=== PATIENT | male | born 1960 | race Caucasian/White ===

== ENCOUNTER 2017-03-18 19:57 | Inpatient (IN) | payer OTHER ==
[2017-03-18 20:23] VITALS: BMI 25.7
--- NOTE | 2017-03-18 20:48 | HP ---
COWS - Scale Resting Pulse: 1= [place] 81-100 Sweatin= Chills/Flushing Restless Observation: 1= Difficult to Sit Still Pupil Size: 1= Pupils >than Normal Bone or Joint Aches: 4=Acute Joint/Muscle Pain Runny Nose/ Eye Tearin= Runny Nose/Eyes GI Upset > 30mins: 1= Stomach Cramp Tremor Observation: 2= Slight Tremor Visible Yawning Observation: 2= >3x During Session Anxiety or Irritability: 1=Feels Anxious/Irritable Goose Flesh Skin: 0=Smooth Skin COWS Score: 16 Admission ROS S - HPI Chief Complaint: C/O WITHDRAWAL SX'S. SEEKING DETOX FOR OPIATE DEPENDENCE. Allergies/Adverse Reactions: Allergies Allergy/AdvReac Type Severity Reaction Status Date / Time No Known Allergies Allergy Verified 08/31/16 15:44 History of Present Illness: 56 Y.O. MALE WITH H/O OPIOID DEPENDENCE ADMITTED TO DETOX. CLIENT IS KNOWN TO [facility]. REPORTS LAST DETOX 3 MONTHS AGO. STATES LONGEST CLEAN TIME 2 YEARS. SELF REFERRED. CLIENT NOTED WITH ABCESS TO R FOREARM WITH SLIGHT NECROSIS AND REDNESS COOL TO TOUCH. STATES WAS SEEN IN [facility] TODAY AND STARTED ON PO ABT [place] BUT DOES NOT HAVE HIS DC PAPERS. PT HAS THIS WOUND LAST ADMISSION. STATES WAS TREATED AND RESOLVED BUT HAS NOW REOCCURRED DUE TO USING SITE FOR IVDA. THIS EPISODE IS NOW 2 WEEKS. HE IS AFREBILE AND H/O DM. WILL START KEFLEX AND CONT TO MONITOR. D/W CLIENT NEED TO F/U UPON DC Exam Limitations: No Limitations - Ebola screening Have you traveled outside of the country in the last 21 days: No (N) Have you had contact with anyone from an Ebola affected area: No Have you been sick,other than usual withdrawal symptoms: No Do you have a fever: No - Review of Systems Constitutional: Chills, Loss of Appetite, Malaise, Night Sweats EENT: reports: Tearing, Nose Congestion, Dental Problems (MISSING TEETH) Respiratory: reports: No Symptoms reported Cardiac: reports: No Symptoms Reported GI: reports: Poor Appetite, Abdominal cramping : reports: No Symptoms Reported Musculoskeletal: reports: Joint Pain Integumentary: reports: No Symptoms Reported Neuro: reports: No Symptoms reported Endocrine: reports: Other (H/O DM) Hematology: reports: No Symptoms Reported Psychiatric: reports: Anxious Other Systems: Reviewed and Negative Patient History - Patient Medical History Hx Anemia: No Hx Asthma: No Hx Chronic Obstructive Pulmonary Disease (COPD): No Hx Cancer: No Hx Cardiac Disorders: No Hx Congestive Heart Failure: No Hx Hypertension: Yes Hx Hypercholesterolemia: Yes Hx Pacemaker: No HX Cerebrovascular Accident: No Hx Seizures: No Hx Dementia: No Hx Diabetes: Yes Hx Gastrointestinal Disorders: No Hx Liver Disease: No Hx Genitourinary Disorders: No Hx Sexually Transmitted Disorders: No Hx Renal Disease (ESRD): No Hx Thyroid Disease: No Hx Human Immunodeficiency Virus (HIV): No Hx Hepatitis C: Yes (NON DETECTABLE) Hx Depression: Yes Hx Suicide Attempt: No Hx Bipolar Disorder: No Hx Schizophrenia: No Other Medical History: DENIES - Patient Surgical History Past Surgical History: No Hx Neurologic Surgery: No Hx Cataract Extraction: No Hx Cardiac Surgery: No Hx Lung Surgery: No Hx Breast Surgery: No Hx Breast Biopsy: No Hx Abdominal Surgery: No Hx Appendectomy: No Hx Cholecystectomy: No Hx Genitourinary Surgery: No Hx Section: No Hx Orthopedic Surgery: No Anesthesia Reaction: No - PPD History Previous Implant?: Yes Documented Results: Negative w/proof Implanted On Prior R Admission?: Yes Date: 09/02/16 Results: 0MM PPD to be Administered?: No - Smoking Cessation Smoking history: Current every day smoker Have you smoked in the past 12 months: Yes Aproximately how many cigarettes per day: 10 Cigars Per Day: 0 Hx Chewing Tobacco Use: No Initiated information on smoking cessation: Yes 'Breaking Loose' booklet given: 03/18/17 - Substance & Tx. History Hx Alcohol Use: No Hx Substance Use: Yes Substance Use Type: Heroin Hx Substance Use Treatment: Yes ([facility]) - Substances Abused HEROIN Route: Injection Frequency: Daily Amount used: 3 BAGS Age of first use: 42 Date of Last Use: 03/17/17 Family Disease History - Family Disease History Family Disease History: Diabetes: Father () Admission Physical Exam BHS - Vital Signs Vital Signs: Vital Signs - 24 hr 03/18/17 20:19 Temperature 97.7 F Pulse Rate 83 Respiratory 18 Rate Blood Pressure 108/69 - Physical General Appearance: Yes: Tremorous HEENTM: Yes: Other (GLASSES) Respiratory: Yes: Chest Non-Tender, Lungs Clear, Normal Breath Sounds, No Respiratory Distress, No Accessory Muscle Use Neck: Yes: No masses,lesions,Nodules, Supple, Trachea in good position Breast: Yes: Breast Exam Deferred Cardiology: Yes: Regular Rhythm, Regular Rate, S1, S2 Abdominal: Yes: Normal Bowel Sounds, Non Tender, Soft, Protuberent Genitourinary: Yes: Within Normal Limits Back: Yes: Normal Inspection Musculoskeletal: Yes: full range of Motion, Gait Steady, Other (LIMITED ROM TO RIGHT HAND DIGITS) Extremities: Yes: Non-Tender, Tremors, Other (LROM TO R HAND DIGITS) Neurological: Yes: Fully Oriented, Alert Integumentary: Yes: Normal Color, Clammy, Track [place], Other (R FOREARM NECROTIC ABCESS. HARD NO DRAINAGE SLIGHT REDNESS) Lymphatic: Yes: Within Normal Limits - Diagnostic (1) Dry eye Current Visit: Yes Status: Chronic (2) Opioid dependence with withdrawal Current Visit: Yes Status: Chronic (3) Hypertension Current Visit: Yes Status: Chronic Qualifiers: Hypertension type: essential hypertension Qualified Code(s): I10 - Essential (primary) hypertension (4) Nicotine dependence Current Visit: Yes Status: Chronic Qualifiers: Nicotine product type: cigarettes Substance use status: uncomplicated Qualified Code(s): F17.210 - Nicotine dependence, cigarettes, uncomplicated (5) Type 2 diabetes mellitus Current Visit: Yes Status: Chronic Qualifiers: Diabetes mellitus complication status: without complication Diabetes mellitus director long term care insulin use: with director long term care use Qualified Code(s): E11.9 - Type 2 diabetes mellitus without complications (6) HLD (hyperlipidemia) Current Visit: Yes Status: Chronic Qualifiers: Hyperlipidemia type: unspecified Qualified Code(s): E78.5 - Hyperlipidemia, unspecified (7) Abscess of right forearm Current Visit: Yes Status: Acute Cleared for Admission [facility] - Detox or Rehab [facility] Level of Care: Medically Managed Detox Regimen/Protocol: Methadone [facility] Breath Alcohol Content Breath Alcohol Content: 0 Urine Drug Screen - Results Drug Screen Negative: No Urine Drug Screen Results: OPI-Opiates, MTD-Methadone
[2017-03-18] MEDS ORDERED: MAG HYDROX/AL HYDROX/SIMETH 30 ML UNIT-DOSE CUP PO PRN (21:07)
[2017-03-18] MEDS ORDERED: MENTHOL/PHENOL 1 EACH UD MM PRN (21:07)
[2017-03-18] MEDS ORDERED: IBUPROFEN 400 MG TABLET (FP) PO PRN (21:07)
[2017-03-18] MEDS ORDERED: METHADONE HCL 10 MG TABLET (FOR DETOX USE ONLY) PO ONE ×2 (21:07→23:00)
[2017-03-18] MEDS ORDERED: guaiFENesin/D-METHORPHAN HB 10 ML UNIT-DOSE CUPS PO PRN (21:07)
[2017-03-18] MEDS ORDERED: MAGNESIUM HYDROX 2400MG/30ML ORAL SUSPENSION 30 ML CUP PO PRN (21:07)
[2017-03-18] MEDS ORDERED: hydrOXYzine PAMOATE 50 MG CAPSULE (FP) PO PRN (21:07)
[2017-03-18] MEDS ORDERED: LOPERAMIDE HCL 2 MG CAPSULE PO PRN (21:07)
[2017-03-18] MEDS ORDERED: ACETAMINOPHEN 325 MG TABLET (FP) PO PRN (21:07)
[2017-03-18] MEDS ORDERED: P-EPHED 60MG/TRIPROLIDI 2.5MG TABLET PO PRN (21:07)
[2017-03-18] MEDS ORDERED: MAGNESIUM CITRATE 300 ML BOTTLE PO PRN (21:07)
[2017-03-18] MEDS ORDERED: metFORMIN HCL 500 MG TABLET (FP) PO SCH (22:00)
[2017-03-18] MEDS: THIAMINE HCL 100 MG TABLET (FP) PO SCH (22:51)
[2017-03-18] MEDS: diazePAM 5 MG TABLET PO PRN (22:51)
[2017-03-18] MEDS: diphenhydrAMINE HCL 50 MG CAPSULE PO PRN (22:52)
[2017-03-18] MEDS: NICOTINE 21 MG/24 HOURS TOPICAL PATCH TD SCH (22:55)
[2017-03-18] MEDS: CEPHALEXIN MONOHYDRATE 500 MG CAPSULE (UD) PO SCH (23:00)
[2017-03-19] MEDS: CEPHALEXIN MONOHYDRATE 500 MG CAPSULE (UD) PO SCH ×4 (05:22→23:04)
[2017-03-19] MEDS: diazePAM 5 MG TABLET PO PRN ×3 (05:22→22:10)
[2017-03-19] MEDS: metFORMIN HCL 500 MG TABLET (FP) PO SCH ×2 (08:06→16:47)
[2017-03-19 09:58] LABS: MCH 28.4 pg (25.7-33.7); MCHC 32.6 g/dl (32.0-35.9); MEAN CELL VOLUME 87.1 fl (80-96); MEAN PLT VOLUME 7.3 fl (7.5-11.1); PLATELET COUNT 228 K/MM3 (134-434); RDW 14.3 % (11.9-15.9); WHITE BLOOD COUNT 6.3 K/mm3 (4.0-10.0)
[2017-03-19] MEDS ORDERED: METHADONE HCL 10 MG TABLET (FOR DETOX USE ONLY) PO ONE (10:00)
[2017-03-19] MEDS: INSULIN DETEMIR 100 UNITS/ML MDV SQ SCH (10:07)
[2017-03-19] MEDS: LOSARTAN POTASSIUM 25 MG TABLET PO SCH (10:07)
[2017-03-19] MEDS: PRENATAL VITAMINS W/ FOLIC ACID TABLET (FP) PO SCH (10:07)
[2017-03-19] MEDS: NICOTINE 21 MG/24 HOURS TOPICAL PATCH TD SCH (10:07)
--- NOTE | 2017-03-19 10:18 | PN ---
BHS COWS - Scale Resting Pulse: 0= [place] 80 or Below Sweatin= Chills/Flushing Restless Observation: 3= Extraneous Movement Pupil Size: 2= Moderately Dilated Bone or Joint Aches: 4=Acute Joint/Muscle Pain Runny Nose/ Eye Tearin= Nasal Congestion GI Upset > 30mins: 1= Stomach Cramp Tremor Observation of Outstretched Hands: 1= Tremor [place], Not Seen Yawning Observation: 1= 1-2x During Session Anxiety or Irritability: 2=Irritable/Anxious Goose Flesh Skin: 0=Smooth Skin COWS Score: 16 BHS Progress Note (SOAP) Subjective: ANXIETY,SWEATS,INTERMITTENT SLEEP. Objective: 03/19/17 10:17 Vital Signs Temperature 97.5 F L 03/19/17 09:26 Pulse Rate 74 03/19/17 09:26 Respiratory Rate 18 03/19/17 09:26 Blood Pressure 116/78 03/19/17 09:26 O2 Sat by Pulse Oximetry (%) Laboratory Last Values WBC 6.3 K/mm3 (4.0-10.0) 03/19/17 07:00 RBC 4.97 M/mm3 (4.00-5.60) 03/19/17 07:00 Hgb 14.1 GM/dL (11.7-16.9) 03/19/17 07:00 Hct 43.3 % (35.4-49) 03/19/17 07:00 MCV 87.1 fl (80-96) 03/19/17 07:00 MCHC 32.6 g/dl (32.0-35.9) 03/19/17 07:00 RDW 14.3 % (11.9-15.9) 03/19/17 07:00 Plt Count 228 K/MM3 (134-434) 03/19/17 07:00 MPV 7.3 fl (7.5-11.1) L D 03/19/17 07:00 POC Glucometer 215 UNITS (()) 03/19/17 05:24 Assessment: 03/19/17 10:17 WITHDRAWAL SX Plan: CONTINUE DETOX
[2017-03-19 10:26] LABS: ALBUMIN 3.9 g/dl (3.4-5.0); ALK PHOS 128 U/L (45-117); ANION GAP 9 (8-16); BILIRUBIN,TOTAL 0.7 mg/dL (0.2-1.0); CALCIUM 9.7 mg/dL (8.5-10.1); CO2 28 mmol/L (21-32); COCKROFT - GAULT 97.57; CREATININE 0.9 mg/dL (0.7-1.3); GLUCOSE,RANDOM 158 mg/dL (74-106); SGOT/AST 19 U/L (15-37); SGPT/ALT 31 U/L (12-78); TOT PROT 7.7 g/dl (6.4-8.2)
--- NOTE | 2017-03-19 10:58 | EKG ---
Test Reason : Blood Pressure : / mmHG Vent. Rate : 069 BPM Atrial Rate : 069 BPM P-R Int : 142 ms QRS Dur : 082 ms QT Int : 390 ms P-R-T Axes : 043 084 069 degrees QTc Int : 417 ms NORMAL SINUS RHYTHM NORMAL ECG NO PREVIOUS ECGS AVAILABLE Confirmed by PATRICK LU MD ([id number]) on 03/19/2017 10:58:08 AM Referred By: Confirmed By:PATRICK LU MD
[2017-03-19] MEDS: THIAMINE HCL 100 MG TABLET (FP) PO SCH (22:10)
[2017-03-19] MEDS: diphenhydrAMINE HCL 50 MG CAPSULE PO PRN (22:10)
[2017-03-19 22:50] LABS: URINE APPEARANCE CLEAR; URINE BILIRUBIN NEGATIVE (NEGATIVE); URINE BLOOD NEGATIVE (NEGATIVE); URINE COLOR LTYELLOW; URINE GLUCOSE (UA) 3+ (NEGATIVE); URINE KETONE NEGATIVE (NEGATIVE); URINE LEUK ESTERASE NEGATIVE (NEGATIVE); URINE NITRITE NEGATIVE (NEGATIVE); URINE PROTEIN NEGATIVE (NEGATIVE); URINE UROBILINOGEN NEGATIVE E.U./dl (0.2-1.0)
[2017-03-20] MEDS: diazePAM 5 MG TABLET PO PRN ×2 (05:24→22:07)
[2017-03-20] MEDS: CEPHALEXIN MONOHYDRATE 500 MG CAPSULE (UD) PO SCH ×4 (05:25→23:25)
[2017-03-20] MEDS: metFORMIN HCL 500 MG TABLET (FP) PO SCH ×2 (07:28→17:09)
--- NOTE | 2017-03-20 09:58 | PN ---
BHS COWS - Scale Resting Pulse: 0= [place] 80 or Below Sweatin= Chills/Flushing Restless Observation: 3= Extraneous Movement Pupil Size: 2= Moderately Dilated Bone or Joint Aches: 2= Severe Diffuse Aches Runny Nose/ Eye Tearin= Nasal Congestion GI Upset > 30mins: 0= None Tremor Observation of Outstretched Hands: 2= Slight Tremor Visible Yawning Observation: 1= 1-2x During Session Anxiety or Irritability: 2=Irritable/Anxious Goose Flesh Skin: 0=Smooth Skin COWS Score: 14 BHS Progress Note (SOAP) Subjective: ANXIETY,SWEATS/CHILLS,FATIGUE Objective: 03/20/17 09:58 Vital Signs Temperature 96 F L 03/20/17 09:43 Pulse Rate 70 03/20/17 09:43 Respiratory Rate 20 03/20/17 09:43 Blood Pressure 130/78 03/20/17 09:43 O2 Sat by Pulse Oximetry (%) Laboratory Last Values WBC 6.3 K/mm3 (4.0-10.0) 03/19/17 07:00 RBC 4.97 M/mm3 (4.00-5.60) 03/19/17 07:00 Hgb 14.1 GM/dL (11.7-16.9) 03/19/17 07:00 Hct 43.3 % (35.4-49) 03/19/17 07:00 MCV 87.1 fl (80-96) 03/19/17 07:00 MCHC 32.6 g/dl (32.0-35.9) 03/19/17 07:00 RDW 14.3 % (11.9-15.9) 03/19/17 07:00 Plt Count 228 K/MM3 (134-434) 03/19/17 07:00 MPV 7.3 fl (7.5-11.1) L D 03/19/17 07:00 Sodium 136 mmol/L (136-145) 03/19/17 07:00 Potassium 4.5 mmol/L (3.5-5.1) 03/19/17 07:00 Chloride 99 mmol/L (98-107) 03/19/17 07:00 Carbon Dioxide 28 mmol/L (21-32) 03/19/17 07:00 Anion Gap 9 (8-16) 03/19/17 07:00 BUN 24 mg/dL (7-18) H D 03/19/17 07:00 Creatinine 0.9 mg/dL (0.7-1.3) 03/19/17 07:00 Creat Clearance w eGFR > 60 (>60) 03/19/17 07:00 POC Glucometer 165 UNITS (()) 03/20/17 05:27 Random Glucose 158 mg/dL (74-106) H D 03/19/17 07:00 Calcium 9.7 mg/dL (8.5-10.1) 03/19/17 07:00 Total Bilirubin 0.7 mg/dL (0.2-1.0) 03/19/17 07:00 AST 19 U/L (15-37) 03/19/17 07:00 ALT 31 U/L (12-78) D 03/19/17 07:00 Alkaline Phosphatase 128 U/L (45-117) H 03/19/17 07:00 Total Protein 7.7 g/dl (6.4-8.2) 03/19/17 07:00 Albumin 3.9 g/dl (3.4-5.0) 03/19/17 07:00 Urine Color Ltyellow 03/19/17 13:23 Urine Appearance Clear 03/19/17 13:23 Urine pH 5.0 (5.0-8.0) 03/19/17 13:23 Urine Protein Negative (NEGATIVE) 03/19/17 13:23 Urine Glucose (UA) 3+ (NEGATIVE) H 03/19/17 13:23 Urine Ketones Negative (NEGATIVE) 03/19/17 13:23 Urine Blood Negative (NEGATIVE) 03/19/17 13:23 Urine Nitrite Negative (NEGATIVE) 03/19/17 13:23 Urine Bilirubin Negative (NEGATIVE) 03/19/17 13:23 Urine Urobilinogen Negative E.U./dl (0.2-1.0) 03/19/17 13:23 Ur Leukocyte Esterase Negative (NEGATIVE) 03/19/17 13:23 RPR Titer Nonreactive (NONREACTIVE) 03/19/17 07:00 Hepatitis C Antibody 6.4 s/co ratio (0.0-0.9) H 03/18/17 07:00 Assessment: 03/20/17 09:58 WITHDRAWAL SX Plan: CONTINUE DETOX
[2017-03-20] MEDS ORDERED: METHADONE HCL 5 MG TABLET (FOR DETOX USE ONLY) PO ONE (10:00)
[2017-03-20] MEDS: INSULIN DETEMIR 100 UNITS/ML MDV SQ SCH (10:03)
[2017-03-20] MEDS: LOSARTAN POTASSIUM 25 MG TABLET PO SCH (10:03)
[2017-03-20] MEDS: PRENATAL VITAMINS W/ FOLIC ACID TABLET (FP) PO SCH (10:03)
[2017-03-20] MEDS: NICOTINE 21 MG/24 HOURS TOPICAL PATCH TD SCH (10:04)
[2017-03-20] MEDS: BACITRACIN 0.9 GM PACKET TP SCH ×2 (12:02→22:06)
--- NOTE | 2017-03-20 14:49 | CONSULT ---
[facility] Psychiatric Consult - Data Date of interview: 03/20/17 Admission source: [facility] Identifying data: Another admission to [facility] for this 56 y/o male seeking detox treatment on for heroin dependence.Patient is single,a father of one,domiciled,unemployed and supported on [facility] benefits. Substance Abuse History: - Smoking Cessation. Smoking history: Current every day smoker. Have you smoked in the past 12 months: Yes. Aproximately how many cigarettes per day: 10. Cigars Per Day: 0. Hx Chewing Tobacco Use: No. Initiated information on smoking cessation: Yes. 'Breaking Loose' booklet given : 03/18/17. - Substance & Tx. History. Hx Alcohol Use: No. Hx Substance Use: Yes. Substance Use Type: Heroin. Hx Substance Use Treatment: Yes ([facility] - Substances Abused. HEROIN. Route: Injection. Frequency: Daily. Amount used: 3 BAGS. Age of first use: 42. Date of Last Use: 03/17/17. Confirmed by patient. Medical History: Hypercholesterolemia,diabetes mellitus,hepatitis C and hypertension. Psychiatric History: No reported history of psychiatric hospitalizations.Mr Villareal reports current [facility] psychiatric care at a program located on [facility] in the [place].Diagnosed with MDD and Anxiety Disorder.Currenntly maintained on klonopin and seroquel 200 mg/hs.He denies history of suicide attempts. Physical/Sexual Abuse/Trauma History: Patient denies. Additional Comment: Urine Drug Screen Results: OPI-Opiates, MTD-Methadone.Noted. Mental Status Exam - Mental Status Exam Alert and Oriented to: Time, Place, Person Cognitive Function: Good Patient Appearance: Well Groomed Mood: Nervous, Anxious Affect: Mood Congruent Patient Behavior: Fatigued, Appropriate, Cooperative Speech Pattern: Clear Voice Loudness: Normal Thought Process: Goal Oriented Thought Disorder: Not Present Hallucinations: Denies Suicidal Ideation: Denies Homicidal Ideation: Denies Insight/Judgement: Poor Sleep: Poorly, Difficulty falling asleep Appetite: Good Muscle strength/Tone: Normal Gait/Station: Normal Psychiatric Findings - Problem List ([place] 1, 2,3) (1) Opioid dependence with withdrawal Current Visit: Yes Status: Acute (2) Nicotine dependence Current Visit: Yes Status: Acute Qualifiers: Nicotine product type: cigarettes Substance use status: uncomplicated Qualified Code(s): F17.210 - Nicotine dependence, cigarettes, uncomplicated (3) Substance induced mood disorder Current Visit: Yes Status: Acute (4) HLD (hyperlipidemia) Current Visit: Yes Status: Chronic Qualifiers: Hyperlipidemia type: unspecified Qualified Code(s): E78.5 - Hyperlipidemia, unspecified (5) Hypertension Current Visit: Yes Status: Chronic Qualifiers: Hypertension type: essential hypertension Qualified Code(s): I10 - Essential (primary) hypertension (6) Type 2 diabetes mellitus Current Visit: Yes Status: Chronic Qualifiers: Diabetes mellitus complication status: without complication Diabetes mellitus terminal worker insulin use: with terminal worker use Qualified Code(s): E11.9 - Type 2 diabetes mellitus without complications (7) Abscess of right hand Current Visit: Yes Status: Acute Comment: KEFLEX (8) Hepatitis C Current Visit: Yes Status: Chronic Qualifiers: Viral hepatitis chronicity: carrier Qualified Code(s): B18.2 - Chronic viral hepatitis C (9) Insomnia Current Visit: Yes Status: Acute - Initial Treatment Plan Initial Treatment Plan: Psychoeducation.Detoxification.Seroquel 200 mg po hs.Side effects/benefits discussed with patient.He is in agreement with this careplan.Observation.Pharmacy claims on 02/23/17 at [facility] confirmed this dose of seroquel.
--- NOTE | 2017-03-20 15:24 | CONSULT ---
Psychiatric Findings - Problem List ([place] 1, 2,3) (1) Opioid dependence with withdrawal Current Visit: Yes Status: Acute (2) Nicotine dependence Current Visit: Yes Status: Acute Qualifiers: Nicotine product type: cigarettes Substance use status: uncomplicated Qualified Code(s): F17.210 - Nicotine dependence, cigarettes, uncomplicated (3) Substance induced mood disorder Current Visit: Yes Status: Acute (4) HLD (hyperlipidemia) Current Visit: Yes Status: Chronic Qualifiers: Hyperlipidemia type: unspecified Qualified Code(s): E78.5 - Hyperlipidemia, unspecified (5) Hypertension Current Visit: Yes Status: Chronic Qualifiers: Hypertension type: essential hypertension Qualified Code(s): I10 - Essential (primary) hypertension (6) Type 2 diabetes mellitus Current Visit: Yes Status: Chronic Qualifiers: Diabetes mellitus complication status: without complication Diabetes mellitus termite treater insulin use: with termite treater use Qualified Code(s): E11.9 - Type 2 diabetes mellitus without complications (7) Abscess of right hand Current Visit: Yes Status: Acute Comment: KEFLEX (8) Hepatitis C Current Visit: Yes Status: Chronic Qualifiers: Viral hepatitis chronicity: carrier Qualified Code(s): B18.2 - Chronic viral hepatitis C (9) Insomnia Current Visit: Yes Status: Acute
[2017-03-20] MEDS: QUEtiapine FUMARATE 200 MG TABLET PO SCH (22:07)
[2017-03-20] MEDS: THIAMINE HCL 100 MG TABLET (FP) PO SCH (22:42)
[2017-03-21] MEDS: diazePAM 5 MG TABLET PO PRN ×2 (05:37→09:53)
[2017-03-21] MEDS: CEPHALEXIN MONOHYDRATE 500 MG CAPSULE (UD) PO SCH ×3 (05:37→17:15)
[2017-03-21] MEDS: metFORMIN HCL 500 MG TABLET (FP) PO SCH ×2 (07:10→17:15)
[2017-03-21] MEDS: INSULIN DETEMIR 100 UNITS/ML MDV SQ SCH (09:52)
[2017-03-21] MEDS: LOSARTAN POTASSIUM 25 MG TABLET PO SCH (09:53)
[2017-03-21] MEDS: PRENATAL VITAMINS W/ FOLIC ACID TABLET (FP) PO SCH (09:53)
[2017-03-21] MEDS: BACITRACIN 0.9 GM PACKET TP SCH ×2 (09:53→22:49)
[2017-03-21] MEDS: NICOTINE 21 MG/24 HOURS TOPICAL PATCH TD SCH (09:54)
[2017-03-21] MEDS ORDERED: METHADONE HCL 5 MG TABLET (FOR DETOX USE ONLY) PO ONE (10:00)
--- NOTE | 2017-03-21 11:40 | PN ---
S Progress Note (SOAP) Subjective: ANXIETY,SWEATS,DRY EYES. Objective: 03/21/17 11:39 Vital Signs Temperature 99.5 F 03/21/17 09:07 Pulse Rate 77 03/21/17 09:07 Respiratory Rate 18 03/21/17 09:07 Blood Pressure 112/76 03/21/17 09:07 O2 Sat by Pulse Oximetry (%) Laboratory Last Values WBC 6.3 K/mm3 (4.0-10.0) 03/19/17 07:00 RBC 4.97 M/mm3 (4.00-5.60) 03/19/17 07:00 Hgb 14.1 GM/dL (11.7-16.9) 03/19/17 07:00 Hct 43.3 % (35.4-49) 03/19/17 07:00 MCV 87.1 fl (80-96) 03/19/17 07:00 MCHC 32.6 g/dl (32.0-35.9) 03/19/17 07:00 RDW 14.3 % (11.9-15.9) 03/19/17 07:00 Plt Count 228 K/MM3 (134-434) 03/19/17 07:00 MPV 7.3 fl (7.5-11.1) L D 03/19/17 07:00 Sodium 136 mmol/L (136-145) 03/19/17 07:00 Potassium 4.5 mmol/L (3.5-5.1) 03/19/17 07:00 Chloride 99 mmol/L (98-107) 03/19/17 07:00 Carbon Dioxide 28 mmol/L (21-32) 03/19/17 07:00 Anion Gap 9 (8-16) 03/19/17 07:00 BUN 24 mg/dL (7-18) H D 03/19/17 07:00 Creatinine 0.9 mg/dL (0.7-1.3) 03/19/17 07:00 Creat Clearance w eGFR > 60 (>60) 03/19/17 07:00 POC Glucometer 175 UNITS (()) 03/21/17 05:39 Random Glucose 158 mg/dL (74-106) H D 03/19/17 07:00 Calcium 9.7 mg/dL (8.5-10.1) 03/19/17 07:00 Total Bilirubin 0.7 mg/dL (0.2-1.0) 03/19/17 07:00 AST 19 U/L (15-37) 03/19/17 07:00 ALT 31 U/L (12-78) D 03/19/17 07:00 Alkaline Phosphatase 128 U/L (45-117) H 03/19/17 07:00 Total Protein 7.7 g/dl (6.4-8.2) 03/19/17 07:00 Albumin 3.9 g/dl (3.4-5.0) 03/19/17 07:00 Urine Color Ltyellow 03/19/17 13:23 Urine Appearance Clear 03/19/17 13:23 Urine pH 5.0 (5.0-8.0) 03/19/17 13:23 Ur Specific [place] 1.025 (1.005-1.025) 03/19/17 13:23 Urine Protein Negative (NEGATIVE) 03/19/17 13:23 Urine Glucose (UA) 3+ (NEGATIVE) H 03/19/17 13:23 Urine Ketones Negative (NEGATIVE) 03/19/17 13:23 Urine Blood Negative (NEGATIVE) 03/19/17 13:23 Urine Nitrite Negative (NEGATIVE) 03/19/17 13:23 Urine Bilirubin Negative (NEGATIVE) 03/19/17 13:23 Urine Urobilinogen Negative E.U./dl (0.2-1.0) 03/19/17 13:23 Ur Leukocyte Esterase Negative (NEGATIVE) 03/19/17 13:23 RPR Titer Nonreactive (NONREACTIVE) 03/19/17 07:00 Hepatitis C Antibody 6.4 s/co ratio (0.0-0.9) H 03/18/17 07:00 Assessment: 03/21/17 11:39 WITHDRAWAL SX Plan: CONTINUE DETOX
[2017-03-21] MEDS: ARTIFICIAL TEARS (POLYVINYL ALCOHOL 1.4%) OPTH DROPS OU SCH ×2 (13:37→22:49)
[2017-03-21] MEDS: QUEtiapine FUMARATE 200 MG TABLET PO SCH (22:07)
[2017-03-21] MEDS: THIAMINE HCL 100 MG TABLET (FP) PO SCH (22:07)
[2017-03-22] MEDS: CEPHALEXIN MONOHYDRATE 500 MG CAPSULE (UD) PO SCH ×5 (00:10→23:08)
[2017-03-22] MEDS: ARTIFICIAL TEARS (POLYVINYL ALCOHOL 1.4%) OPTH DROPS OU SCH ×3 (05:38→22:08)
[2017-03-22] MEDS: metFORMIN HCL 500 MG TABLET (FP) PO SCH ×2 (06:15→17:05)
[2017-03-22] MEDS: INSULIN DETEMIR 100 UNITS/ML MDV SQ SCH (09:33)
[2017-03-22] MEDS: BACITRACIN 0.9 GM PACKET TP SCH ×2 (09:33→22:07)
[2017-03-22] MEDS: PRENATAL VITAMINS W/ FOLIC ACID TABLET (FP) PO SCH (09:34)
[2017-03-22] MEDS: NICOTINE 21 MG/24 HOURS TOPICAL PATCH TD SCH (09:34)
[2017-03-22] MEDS ORDERED: METHADONE HCL 10 MG TABLET (FOR DETOX USE ONLY) PO ONE (10:00)
[2017-03-22] MEDS: LOSARTAN POTASSIUM 25 MG TABLET PO SCH (10:24)
--- NOTE | 2017-03-22 10:26 | PN ---
BHS Progress Note (SOAP) Subjective: ANXIETY,SWEATS,CHILLS,FATIGUE. Objective: 03/22/17 10:25 Vital Signs Temperature 99.3 F 03/22/17 09:50 Pulse Rate 75 03/22/17 09:50 Respiratory Rate 20 03/22/17 09:50 Blood Pressure 128/86 03/22/17 09:50 O2 Sat by Pulse Oximetry (%) Assessment: 03/22/17 10:25 WITHDRAWAL SX Plan: CONTINUE DETOX
[2017-03-22] MEDS: THIAMINE HCL 100 MG TABLET (FP) PO SCH (22:08)
[2017-03-22] MEDS: QUEtiapine FUMARATE 200 MG TABLET PO SCH (22:08)
[2017-03-23] MEDS: CEPHALEXIN MONOHYDRATE 500 MG CAPSULE (UD) PO SCH (05:32)
[2017-03-23] MEDS: ARTIFICIAL TEARS (POLYVINYL ALCOHOL 1.4%) OPTH DROPS OU SCH (05:32)
[2017-03-23] MEDS ORDERED: METHADONE HCL 5 MG TABLET (FOR DETOX USE ONLY) PO ONE (06:00)
[2017-03-23] MEDS: metFORMIN HCL 500 MG TABLET (FP) PO SCH (06:05)
[2017-03-23 06:33] VITALS: BP 122/83; PULSE 72; TEMP 97
--- NOTE | 2017-03-23 15:05 | DS ---
[facility] Detox Discharge Summary Admission Date: 03/18/17 Discharge Date: 03/23/17 - History Present History: Opioid Dependence Additional Comments: PATIENT ADVISED TO COMPLETE FULL COURSE OF ANTIBIOTIC (KELFLEX, PRESCRIPTION SENT TO PATIENT'S PHARMACY) FOR ABSCESS OF RIGHT ARM AFTER DISCHARGE. ADVISED PATIENT TO FOLLOW-UP WITH HAND FOLDER AFTER DISCHARGE FROM DETOX FOR GENERAL MEDICAL ASSESSMENT AND FOR FOLLOW-UP MEDICAL EVALUATION OF ABSCESS OF RIGHT FOREARM. Pertinent Past History: Hyperlipidemia, HTN, Depression, Hep C, Abscess of Right Forearm and Hand, Type II DM. - Physical Exam Results Vital Signs: Vital Signs Temperature 97.0 F L 03/23/17 06:33 Pulse Rate 72 03/23/17 06:33 Respiratory Rate 18 03/23/17 06:33 Blood Pressure 122/83 03/23/17 06:33 O2 Sat by Pulse Oximetry (%) Pertinent Admission Physical Exam Findings: WITHDRAWAL SYMPTOMS. Laboratory Tests 03/18/17 03/18/17 03/19/17 07:00 20:59 05:24 WBC RBC Hgb Hct MCV MCHC RDW Plt Count MPV Sodium Potassium Chloride Carbon Dioxide Anion Gap BUN Creatinine Creat Clearance w eGFR POC Glucometer 148 215 Random Glucose Calcium Total Bilirubin AST ALT Alkaline Phosphatase Total Protein Albumin Urine Color Urine Appearance Urine pH Ur Specific [place] Urine Protein Urine Glucose (UA) Urine Ketones Urine Blood Urine Nitrite Urine Bilirubin Urine Urobilinogen Ur Leukocyte Esterase RPR Titer Hepatitis C Antibody 6.4 H 03/19/17 03/19/17 03/19/17 07:00 07:00 07:00 WBC 6.3 RBC 4.97 Hgb 14.1 Hct 43.3 MCV 87.1 MCHC 32.6 RDW 14.3 Plt Count 228 MPV 7.3 L D Sodium 136 Potassium 4.5 Chloride 99 Carbon Dioxide 28 Anion Gap 9 BUN 24 H D Creatinine 0.9 Creat Clearance w eGFR > 60 POC Glucometer Random Glucose 158 H D Calcium 9.7 Total Bilirubin 0.7 AST 19 ALT 31 D Alkaline Phosphatase 128 H Total Protein 7.7 Albumin 3.9 Urine Color Urine Appearance Urine pH Ur Specific [place] Urine Protein Urine Glucose (UA) Urine Ketones Urine Blood Urine Nitrite Urine Bilirubin Urine Urobilinogen Ur Leukocyte Esterase RPR Titer Nonreactive Hepatitis C Antibody 03/19/17 03/19/17 03/20/17 13:23 16:15 05:27 WBC RBC Hgb Hct MCV MCHC RDW Plt Count MPV Sodium Potassium Chloride Carbon Dioxide Anion Gap BUN Creatinine Creat Clearance w eGFR POC Glucometer 159 165 Random Glucose Calcium Total Bilirubin AST ALT Alkaline Phosphatase Total Protein Albumin Urine Color Ltyellow Urine Appearance Clear Urine pH 5.0 Ur Specific [place] 1.025 Urine Protein Negative Urine Glucose (UA) 3+ H Urine Ketones Negative Urine Blood Negative Urine Nitrite Negative Urine Bilirubin Negative Urine Urobilinogen Negative Ur Leukocyte Esterase Negative RPR Titer Hepatitis C Antibody 03/20/17 03/21/17 03/21/17 16:14 05:39 16:17 WBC RBC Hgb Hct MCV MCHC RDW Plt Count MPV Sodium Potassium Chloride Carbon Dioxide Anion Gap BUN Creatinine Creat Clearance w eGFR POC Glucometer 246 175 230 Random Glucose Calcium Total Bilirubin AST ALT Alkaline Phosphatase Total Protein Albumin Urine Color Urine Appearance Urine pH Ur Specific [place] Urine Protein Urine Glucose (UA) Urine Ketones Urine Blood Urine Nitrite Urine Bilirubin Urine Urobilinogen Ur Leukocyte Esterase RPR Titer Hepatitis C Antibody 03/22/17 03/22/17 03/23/17 05:40 16:28 05:34 WBC RBC Hgb Hct MCV MCHC RDW Plt Count MPV Sodium Potassium Chloride Carbon Dioxide Anion Gap BUN Creatinine Creat Clearance w eGFR POC Glucometer 296 257 169 Random Glucose Calcium Total Bilirubin AST ALT Alkaline Phosphatase Total Protein Albumin Urine Color Urine Appearance Urine pH Ur Specific [place] Urine Protein Urine Glucose (UA) Urine Ketones Urine Blood Urine Nitrite Urine Bilirubin Urine Urobilinogen Ur Leukocyte Esterase RPR Titer Hepatitis C Antibody LABS NOTED. - Treatment Hospital Course: Detox Protocol Followed, Detoxed Safely, Responded well, Discharged Condition Good Patient has Accepted a Rehab Referral to: PATIENT TO GO HOME. WILL ATTEND [facility]. - Medication Discharge Medications: Ambulatory Orders Insulin Glargine,Hum.rec.anlog [Lantus (10mL VIAL) -] 16 units SQ DAILY Losartan Potassium [Cozaar -] 25 mg PO DAILY 08/31/16 Metformin HCl [Glucophage -] 500 mg PO BID 08/31/16 Erik/Polymyx B Sulf/Dexameth [Maxitrol Eye Drops -] 1 drop .ROUTE BID 08/31/16 Quetiapine Fumarate [Seroquel -] 200 mg PO HS #30 tab 03/20/17 Cephalexin [Keflex] 500 mg PO QID #28 capsule 03/23/17 - Diagnosis (1) Abscess of right forearm Status: Acute (2) Abscess of right hand Status: Acute (3) Insomnia Status: Acute Qualifiers: Insomnia type: unspecified Qualified Code(s): G47.00 - Insomnia, unspecified (4) Nicotine dependence Status: Chronic Qualifiers: Nicotine product type: cigarettes Substance use status: uncomplicated Qualified Code(s): F17.210 - Nicotine dependence, cigarettes, uncomplicated (5) Opioid dependence with withdrawal Status: Acute (6) Substance induced mood disorder Status: Acute (7) Dry eye Status: Chronic (8) HLD (hyperlipidemia) Status: Chronic Qualifiers: Hyperlipidemia type: unspecified Qualified Code(s): E78.5 - Hyperlipidemia, unspecified (9) Hepatitis C Status: Chronic Qualifiers: Viral hepatitis chronicity: carrier Qualified Code(s): B18.2 - Chronic viral hepatitis C (10) Hypertension Status: Chronic Qualifiers: Hypertension type: essential hypertension Qualified Code(s): I10 - Essential (primary) hypertension (11) Type 2 diabetes mellitus Status: Chronic Qualifiers: Diabetes mellitus complication status: without complication Diabetes mellitus fdc insulin use: with fdc use Qualified Code(s): E11.9 - Type 2 diabetes mellitus without complications (12) Depression (emotion) Status: Suspected Qualifiers: Depression Type: dysthymia Qualified Code(s): F34.1 - Dysthymic disorder - AMA Did Patient Leave Against Medical Advice: No
== END 2017-03-23 08:50 | disposition home or self-care (01) | DRG 897 ==
LOC: YASAS 19:57 → Y3N 21:32
PROVIDERS: ADMIT Internal Medicine; ATTEND Internal Medicine
PROC: HZ2ZZZZ Detoxification Services for Substance Abuse Treatment (ICD-10-PCS; principal; 2017-03-18)
DX: F11.23 Opioid dependence with withdrawal (principal); L02.413 Cutaneous abscess of right upper limb; L02.511 Cutaneous abscess of right hand; F17.210 Nicotine dependence, cigarettes, uncomplicated; F19.24 Other psychoactive substance dependence with psychoactive substance-induced mood disorder; F34.1 Dysthymic disorder; G47.00 Insomnia, unspecified; H04.129 Dry eye syndrome of unspecified lacrimal gland; E78.5 Hyperlipidemia, unspecified; B18.2 Chronic viral hepatitis C; I10 Essential (primary) hypertension; E11.9 Type 2 diabetes mellitus without complications; Z79.4 Long term (current) use of insulin; Z79.84 Long term (current) use of oral hypoglycemic drugs
CPT/HCPCS: 36415; 80053; 81003; 85027; 86593; 86803; 93005; 93010

== ENCOUNTER 2017-08-27 14:20 | Inpatient (IN) | payer OTHER ==
[2017-08-27 15:05] VITALS: BMI 25.0
--- NOTE | 2017-08-27 15:38 | HP ---
COWS - Scale Resting Pulse: 1= [place] 81-100 Sweatin=Flushed/Facial Moisture Restless Observation: 3= Extraneous Movement Pupil Size: 2= Moderately Dilated Bone or Joint Aches: 2= Severe Diffuse Aches Runny Nose/ Eye Tearin= Runny Nose/Eyes GI Upset > 30mins: 3= Vomiting/Diarrhea Tremor Observation: 2= Slight Tremor Visible Yawning Observation: 2= >3x During Session Anxiety or Irritability: 2=Irritable/Anxious Goose Flesh Skin: 0=Smooth Skin COWS Score: 21 Admission ROS BHS - HPI Chief Complaint: i need help to stop using heroin Allergies/Adverse Reactions: Allergies Allergy/AdvReac Type Severity Reaction Status Date / Time No Known Allergies Allergy Verified 08/27/17 15:26 History of Present Illness: this 57 years old male with heroin dependence,seeking detox,last treatment [facility] 06/23 bipolar disorder type 2 dm conjunctivitis both longest period of sobriety 5 years Exam Limitations: No Limitations - Ebola screening Have you traveled outside of the country in the last 21 days: No (N) Have you had contact with anyone from an Ebola affected area: No Have you been sick,other than usual withdrawal symptoms: No Do you have a fever: No - Review of Systems Constitutional: Chills, Diaphoresis, Loss of Appetite, Malaise, Night Sweats, Weakness, Unintentional Wgt. Loss, Unexplained wgt Loss EENT: reports: Tearing, Nose Congestion Respiratory: reports: No Symptoms reported Cardiac: reports: Palpitations GI: reports: Diarrhea, Nausea, Vomiting, Abdominal cramping : reports: No Symptoms Reported Musculoskeletal: reports: Back Pain, Muscle Pain Integumentary: reports: Dryness Neuro: reports: Headache, Tremors Endocrine: reports: No Symptoms Reported Hematology: reports: No Symptoms Reported Psychiatric: reports: No Sypmtoms Reported, Judgement Intact, Mood/Affect Appropiate, other (bipolar disorder) Other Systems: Reviewed and Negative Patient History - Patient Medical History Hx Anemia: No Hx Asthma: No Hx Chronic Obstructive Pulmonary Disease (COPD): No Hx Cancer: No Hx Cardiac Disorders: No Hx Congestive Heart Failure: No Hx Hypertension: Yes (on med) Hx Hypercholesterolemia: Yes (on med) Hx Pacemaker: No HX Cerebrovascular Accident: No Hx Seizures: No Hx Dementia: No Hx Diabetes: Yes (on med) Hx Gastrointestinal Disorders: No Hx Liver Disease: No Hx Genitourinary Disorders: No Hx Sexually Transmitted Disorders: No Hx Renal Disease (ESRD): No Hx Thyroid Disease: No Hx Human Immunodeficiency Virus (HIV): No Hx Hepatitis C: Yes (NON DETECTABLE) Hx Depression: Yes (on med) Hx Suicide Attempt: No Hx Bipolar Disorder: No Hx Schizophrenia: No Other Medical History: no sucidal,no homicidal,redness both eyes for 3 days - Patient Surgical History Past Surgical History: No Hx Neurologic Surgery: No Hx Cataract Extraction: No Hx Cardiac Surgery: No Hx Lung Surgery: No Hx Breast Surgery: No Hx Breast Biopsy: No Hx Abdominal Surgery: No Hx Appendectomy: No Hx Cholecystectomy: No Hx Genitourinary Surgery: No Hx Section: No Hx Orthopedic Surgery: No Anesthesia Reaction: No - PPD History Previous Implant?: Yes Documented Results: Negative w/o proof Date: 09/02/16 Results: 0MM PPD to be Administered?: Yes - Smoking Cessation Smoking history: Current every day smoker Have you smoked in the past 12 months: Yes Aproximately how many cigarettes per day: 10 Cigars Per Day: 0 Hx Chewing Tobacco Use: No Initiated information on smoking cessation: Yes 'Breaking Loose' booklet given: 08/27/17 - Substance & Tx. History Hx Alcohol Use: No Hx Substance Use: Yes Substance Use Type: Heroin Hx Substance Use Treatment: Yes ([facility] 07/23) - Substances Abused Heroin Route: Injection Frequency: Daily Amount used: 6 BAGS Age of first use: 42 Date of Last Use: 08/26/17 Family Disease History - Family Disease History Family Disease History: Diabetes: Father () Admission Physical Exam [facility] - Vital Signs Vital Signs: Vital Signs - 24 hr 08/27/17 15:04 Temperature 97.8 F Pulse Rate 83 Respiratory 18 Rate Blood Pressure 130/78 - Physical General Appearance: Yes: Moderate Distress, Tremorous, Irritable, Sweating, Anxious HEENTM: Yes: Normal ENT Inspection, MOUNA, Pharynx Normal Respiratory: Yes: Lungs Clear, Normal Breath Sounds, No Respiratory Distress Neck: Yes: Within Normal Limits, Supple, Trachea in good position Breast: Yes: Within Normal Limits Cardiology: Yes: Within Normal Limits, Regular Rhythm, Regular Rate, S1, S2 Abdominal: Yes: Within Normal Limits, Normal Bowel Sounds, Non Tender, Flat, Soft Genitourinary: Yes: Within Normal Limits Back: Yes: Normal Inspection, Muscle Spasm Musculoskeletal: Yes: full range of Motion, Back pain, Muscle Pain Extremities: Yes: Within Normal Limits, Normal Range of Motion, Tremors Neurological: Yes: boarder machine II-XII NML intact, Fully Oriented, Alert, Motor Strength 5/5 Integumentary: Yes: Dry, Track [place] Lymphatic: Yes: Within Normal Limits - Diagnostic (1) Insomnia Current Visit: No Status: Acute Qualifiers: Insomnia type: unspecified Qualified Code(s): G47.00 - Insomnia, unspecified (2) Opioid dependence with withdrawal Current Visit: No Status: Acute (3) HLD (hyperlipidemia) Current Visit: No Status: Chronic Qualifiers: Hyperlipidemia type: unspecified Qualified Code(s): E78.5 - Hyperlipidemia , unspecified (4) Hepatitis C Current Visit: No Status: Chronic Qualifiers: Viral hepatitis chronicity: carrier Qualified Code(s): B18.2 - Chronic viral hepatitis C (5) Hypertension Current Visit: No Status: Chronic Qualifiers: Hypertension type: essential hypertension Qualified Code(s): I10 - Essential (primary) hypertension (6) Nicotine dependence Current Visit: No Status: Chronic Qualifiers: Nicotine product type: cigarettes Substance use status: uncomplicated Qualified Code(s): F17.210 - Nicotine dependence, cigarettes, uncomplicated (7) Type 2 diabetes mellitus Current Visit: No Status: Chronic Qualifiers: Diabetes mellitus complication status: without complication Diabetes mellitus terminal gauger supervisor insulin use: with fci use Qualified Code(s): E11.9 - Type 2 diabetes mellitus without complications; Z79.4 - long term care administrator (current) use of insulin; Z79.4 - long term care administrator (current) use of insulin; Z79.4 - long term care administrator ( current) use of insulin; Z79.4 - long term care administrator (current) use of insulin (8) Depression (emotion) Current Visit: No Status: Suspected Qualifiers: Depression Type: dysthymia Qualified Code(s): F34.1 - Dysthymic disorder (9) Conjunctivitis, both eyes Current Visit: Yes Status: Acute Cleared for Admission BHS - Detox or Rehab [facility] Level of Care: Medically Managed Detox Regimen/Protocol: Methadone S Breath Alcohol Content Breath Alcohol Content: 0 Urine Drug Screen - Results Drug Screen Negative: No Urine Drug Screen Results: OPI-Opiates
[2017-08-27] MEDS ORDERED: P-EPHED 60MG/TRIPROLIDI 2.5MG TABLET PO PRN (15:53)
[2017-08-27] MEDS ORDERED: MENTHOL/PHENOL 1 EACH UD MM PRN (15:53)
[2017-08-27] MEDS ORDERED: LOPERAMIDE HCL 2 MG CAPSULE PO PRN (15:53)
[2017-08-27] MEDS ORDERED: IBUPROFEN 400 MG TABLET (FP) PO PRN (15:53)
[2017-08-27] MEDS ORDERED: MAGNESIUM HYDROX 2400MG/30ML ORAL SUSPENSION 30 ML CUP PO PRN (15:53)
[2017-08-27] MEDS ORDERED: guaiFENesin/D-METHORPHAN HB 10 ML UNIT-DOSE CUPS PO PRN (15:53)
[2017-08-27] MEDS ORDERED: ACETAMINOPHEN 325 MG TABLET (FP) PO PRN (15:53)
[2017-08-27] MEDS ORDERED: MAGNESIUM CITRATE 300 ML BOTTLE PO PRN (15:53)
[2017-08-27] MEDS ORDERED: MAG HYDROX/AL HYDROX/SIMETH 30 ML UNIT-DOSE CUP PO PRN (15:53)
[2017-08-27] MEDS ORDERED: METHADONE HCL 10 MG TABLET (FOR DETOX USE ONLY) PO ONE ×2 (17:00→23:00)
[2017-08-27] MEDS: metFORMIN HCL 500 MG TABLET (FP) PO SCH (18:47)
[2017-08-27] MEDS: diazePAM 5 MG TABLET PO PRN ×2 (18:47→22:19)
[2017-08-27] MEDS: NICOTINE 21 MG/24 HOURS TOPICAL PATCH TD SCH (18:48)
[2017-08-27] MEDS: CIPROFLOXACIN HCL 0.3% OPHTH 2.5ML BOTTLE OU SCH ×3 (18:51→22:19)
[2017-08-27] MEDS: QUEtiapine FUMARATE 200 MG TABLET PO SCH (22:19)
[2017-08-27] MEDS: THIAMINE HCL 100 MG TABLET (FP) PO SCH (22:19)
[2017-08-27 22:47] LABS: URINE APPEARANCE CLEAR; URINE BILIRUBIN NEGATIVE (NEGATIVE); URINE BLOOD NEGATIVE (NEGATIVE); URINE COLOR YELLOW; URINE GLUCOSE (UA) NEGATIVE (NEGATIVE); URINE KETONE NEGATIVE (NEGATIVE); URINE NITRITE NEGATIVE (NEGATIVE); URINE PROTEIN NEGATIVE (NEGATIVE); URINE UROBILINOGEN NEGATIVE mg/dL (0.2-1.0)
[2017-08-28] MEDS: diazePAM 5 MG TABLET PO PRN ×4 (05:19→22:28)
[2017-08-28] MEDS: CIPROFLOXACIN HCL 0.3% OPHTH 2.5ML BOTTLE OU SCH ×5 (05:20→22:28)
[2017-08-28] MEDS: metFORMIN HCL 500 MG TABLET (FP) PO SCH ×2 (06:03→17:14)
[2017-08-28] MEDS: INSULIN DETEMIR 100 UNITS/ML MDV SQ SCH (07:25)
[2017-08-28 09:58] LABS: MCH 27.7 pg (25.7-33.7); MEAN CELL VOLUME 86.6 fl (80-96); MEAN PLT VOLUME 8.1 fl (7.5-11.1); PLATELET COUNT 240 K/MM3 (134-434); RDW 13.7 % (11.9-15.9); WHITE BLOOD COUNT 5.8 K/mm3 (4.0-10.0)
[2017-08-28] MEDS ORDERED: METHADONE HCL 10 MG TABLET (FOR DETOX USE ONLY) PO ONE (10:00)
--- NOTE | 2017-08-28 10:17 | EKG ---
Test Reason : Blood Pressure : / mmHG Vent. Rate : 066 BPM Atrial Rate : 066 BPM P-R Int : 170 ms QRS Dur : 080 ms QT Int : 406 ms P-R-T Axes : 059 084 075 degrees QTc Int : 425 ms NORMAL SINUS RHYTHM WITH SINUS ARRHYTHMIA NORMAL ECG WHEN COMPARED WITH ECG OF 18-MAR-2017 21:58, NO SIGNIFICANT CHANGE WAS FOUND Confirmed by HUGO TANNER MD ([id number]) on 08/28/2017 10:16:54 AM Referred By: Confirmed By:HUGO TANNER MD
[2017-08-28] MEDS: LOSARTAN POTASSIUM 25 MG TABLET PO SCH (10:28)
[2017-08-28] MEDS: PRENATAL VITAMINS W/ FOLIC ACID TABLET (FP) PO SCH (10:28)
[2017-08-28] MEDS: NICOTINE 21 MG/24 HOURS TOPICAL PATCH TD SCH (10:29)
[2017-08-28 10:34] LABS: ALBUMIN 3.1 g/dl (3.4-5.0); ALK PHOS 118 U/L (45-117); ANION GAP 6 (8-16); BILIRUBIN,TOTAL 0.5 mg/dL (0.2-1.0); CALCIUM 8.7 mg/dL (8.5-10.1); CO2 27 mmol/L (21-32); CREATININE 0.7 mg/dL (0.7-1.3); GLUCOSE,RANDOM 109 mg/dL (74-106); SGOT/AST 14 U/L (15-37); SGPT/ALT 25 U/L (12-78); TOT PROT 6.6 g/dl (6.4-8.2)
[2017-08-28 11:12] LABS: URINE LEUK ESTERASE Negative (NEGATIVE)
--- NOTE | 2017-08-28 11:26 | PN ---
[facility] CIWA - CIWA Score Nausea/Vomitin-No Nausea/No Vomiting Muscle Tremors: 3 Anxiety: 4-Mod. Anxious/Guarded Agitation: 3 Paroxysmal Sweats: 3 Orientation: 0-Oriented Tacttile Disturbances: 1-Very Mild Itch/Numbness Auditory Disturbances: 0-None Visual Disturbances: 2-Mild Sensitivity Headache: 0-None Present CIWA-Ar Total Score: 16 BHS Progress Note (SOAP) Subjective: Interrupted Sleep, Fatigue, Anxious, Tremors. Objective: PT. A & O X 3, OBSERVED AMBULATING ON UNIT. NO ACUTE DISTRESS. 08/28/17 11:22 Vital Signs Temperature 96.2 F L 08/28/17 09:40 Pulse Rate 76 08/28/17 09:40 Respiratory Rate 18 08/28/17 09:40 Blood Pressure 124/80 08/28/17 09:40 O2 Sat by Pulse Oximetry (%) Laboratory Tests 08/27/17 08/27/17 08/28/17 15:39 22:00 05:18 WBC RBC Hgb Hct MCV MCH MCHC RDW Plt Count MPV Sodium Potassium Chloride Carbon Dioxide Anion Gap BUN Creatinine Creat Clearance w eGFR POC Glucometer 121 147 Random Glucose Calcium Total Bilirubin AST ALT Alkaline Phosphatase Total Protein Albumin Urine Color Yellow Urine Appearance Clear Urine pH 5.0 Ur Specific [place] 1.025 Urine Protein Negative Urine Glucose (UA) Negative Urine Ketones Negative Urine Blood Negative Urine Nitrite Negative Urine Bilirubin Negative Urine Urobilinogen Negative Ur Leukocyte Esterase Negative RPR Titer 08/28/17 08/28/17 08/28/17 07:00 07:00 07:00 WBC 5.8 RBC 4.60 Hgb 12.7 Hct 39.8 MCV 86.6 MCH 27.7 MCHC 32.0 RDW 13.7 Plt Count 240 MPV 8.1 D Sodium 139 Potassium 4.1 Chloride 106 Carbon Dioxide 27 Anion Gap 6 L BUN 12 D Creatinine 0.7 D Creat Clearance w eGFR > 60 POC Glucometer Random Glucose 109 H D Calcium 8.7 Total Bilirubin 0.5 D AST 14 L D ALT 25 Alkaline Phosphatase 118 H Total Protein 6.6 Albumin 3.1 L D Urine Color Urine Appearance Urine pH Ur Specific [place] Urine Protein Urine Glucose (UA) Urine Ketones Urine Blood Urine Nitrite Urine Bilirubin Urine Urobilinogen Ur Leukocyte Esterase RPR Titer Nonreactive LABS NOTED. Assessment: 08/28/17 11:23 WITHDRAWAL SYMPTOMS. Plan: CONTINUE DETOX. INCREASE DAILY PO FLUID INTAKE. PATIENT REPORTS THAT HE HAS IMPORTANT MEDICAL APPOINTMENT TO ATTEND ON SATURDAY , 08/31/2017. AT PATIENT'S REQUEST, CURRENT DETOX REGIMEN (METHADONE) MODIFIED SO THAT PATIENT MAY BE DISCHARGED ON 08/31/2017.
--- NOTE | 2017-08-28 11:36 | CONSULT ---
[facility] Psychiatric Consult - Data Date of interview: 08/28/17 Admission source: [facility] Identifying data: Readmission to [facility] for this 57 y/o male seeking detox treatment on for heroin dependence.Patient is single,a father of one,domiciled,unemployed and supported on [facility] benefits. Substance Abuse History: Confirmed by patient in this interview.Refer to [facility] report for details. Smoking history: Current every day smoker. Have you smoked in the past 12 months: Yes. Aproximately how many cigarettes per day: 10. Cigars Per Day: 0. Hx Chewing Tobacco Use: No. Initiated information on smoking cessation: Yes. 'Breaking Loose' booklet given: 08/27/17. - Substance & Tx. History. Hx Alcohol Use: No. Hx Substance Use: Yes. Substance Use Type : Heroin. Hx Substance Use Treatment: Yes ([facility] 07/23). - Substances Abused. Heroin. Route: Injection. Frequency: Daily. Amount used: 6 BAGS. Age of first use: 42. Date of Last Use: 08/26/17 Medical History: Hypercholesterolemia,diabetes mellitus,hepatitis C and hypertension. Psychiatric History: In this interview,the patient admits to a history of multiple psychiatric hospitalizations ([facility]Mr Dionna reports current [facility] psychiatric care in the [place].Name of program : not recalled by patient.Diagnosed with Bipolar Disorder.Prescribed klonopin and seroquel 200 mg/hs.Patient denies history of suicide attempts. Physical/Sexual Abuse/Trauma History: No reported history of abuse. Additional Comment: Urine Drug Screen Results: OPI-Opiates.Noted. Mental Status Exam - Mental Status Exam Alert and Oriented to: Time, Place, Person Cognitive Function: Good Patient Appearance: Well Groomed Mood: Hopeful, Euthymic Affect: Appropriate, Normal Range Patient Behavior: Appropriate, Cooperative Speech Pattern: Clear Voice Loudness: Normal Thought Process: Intact, Goal Oriented Thought Disorder: Not Present Hallucinations: Denies Suicidal Ideation: Denies Homicidal Ideation: Denies Insight/Judgement: Poor Sleep: Poorly, Difficulty falling asleep Appetite: Good Muscle strength/Tone: Normal Gait/Station: Normal Psychiatric Findings - Problem List ([place] 1, 2,3) (1) Opioid dependence with withdrawal Current Visit: Yes Status: Acute (2) Nicotine dependence Current Visit: Yes Status: Chronic Qualifiers: Nicotine product type: cigarettes Substance use status: uncomplicated Qualified Code(s): F17.210 - Nicotine dependence, cigarettes, uncomplicated (3) Substance induced mood disorder Current Visit: Yes Status: Acute (4) Insomnia Current Visit: Yes Status: Acute Qualifiers: Insomnia type: unspecified Qualified Code(s): G47.00 - Insomnia, unspecified - Initial Treatment Plan Initial Treatment Plan: Psychoeducation.Detoxification.Sleep hygiene.Medications : seroquel 200 mg po hs.Side effects/benefits discussed with patient.He agrees with careplan.Observation.
[2017-08-28] MEDS: QUEtiapine FUMARATE 200 MG TABLET PO SCH (22:28)
[2017-08-28] MEDS: THIAMINE HCL 100 MG TABLET (FP) PO SCH (22:28)
[2017-08-29] MEDS: CIPROFLOXACIN HCL 0.3% OPHTH 2.5ML BOTTLE OU SCH ×5 (05:40→22:18)
[2017-08-29] MEDS: diazePAM 5 MG TABLET PO PRN ×2 (05:41→13:47)
[2017-08-29] MEDS: metFORMIN HCL 500 MG TABLET (FP) PO SCH ×2 (07:00→17:10)
[2017-08-29] MEDS: INSULIN DETEMIR 100 UNITS/ML MDV SQ SCH (07:26)
[2017-08-29] MEDS ORDERED: METHADONE HCL 5 MG TABLET (FOR DETOX USE ONLY) PO ONE (10:00)
[2017-08-29] MEDS: PRENATAL VITAMINS W/ FOLIC ACID TABLET (FP) PO SCH (10:22)
[2017-08-29] MEDS: LOSARTAN POTASSIUM 25 MG TABLET PO SCH (10:23)
[2017-08-29] MEDS: NICOTINE 21 MG/24 HOURS TOPICAL PATCH TD SCH (10:23)
[2017-08-29] MEDS ORDERED: FLU VACCINE QUAD 60 MCG/0.5 ML (MDV 17-18) IM ONE (12:00)
--- NOTE | 2017-08-29 14:20 | PN ---
S COWS - Scale Resting Pulse: 0= [place] 80 or Below Sweatin= Chills/Flushing Restless Observation: 1= Difficult to Sit Still Pupil Size: 0= Normal to Room Light Bone or Joint Aches: 2= Severe Diffuse Aches Runny Nose/ Eye Tearin= Nasal Congestion GI Upset > 30mins: 0= None Tremor Observation of Outstretched Hands: 2= Slight Tremor Visible Yawning Observation: 1= 1-2x During Session Anxiety or Irritability: 2=Irritable/Anxious Goose Flesh Skin: 3=Piloerection COWS Score: 13 S Progress Note (SOAP) Subjective: Tremors, Anxious, Sweating, Fatigue. Objective: PT. A & O X 3, OBSERVED AMBULATING ON UNIT. NO ACUTE DISTRESS. 08/29/17 14:19 Vital Signs Temperature 97.6 F 08/29/17 08:56 Pulse Rate 77 08/29/17 08:56 Respiratory Rate 18 08/29/17 08:56 Blood Pressure 145/85 08/29/17 08:56 O2 Sat by Pulse Oximetry (%) Laboratory Tests 08/27/17 08/27/17 08/28/17 15:39 22:00 05:18 WBC RBC Hgb Hct MCV MCH MCHC RDW Plt Count MPV Sodium Potassium Chloride Carbon Dioxide Anion Gap BUN Creatinine Creat Clearance w eGFR POC Glucometer 121 147 Random Glucose Calcium Total Bilirubin AST ALT Alkaline Phosphatase Total Protein Albumin Urine Color Yellow Urine Appearance Clear Urine pH 5.0 Ur Specific [place] 1.025 Urine Protein Negative Urine Glucose (UA) Negative Urine Ketones Negative Urine Blood Negative Urine Nitrite Negative Urine Bilirubin Negative Urine Urobilinogen Negative Ur Leukocyte Esterase Negative RPR Titer 08/28/17 08/28/17 08/28/17 07:00 07:00 07:00 WBC 5.8 RBC 4.60 Hgb 12.7 Hct 39.8 MCV 86.6 MCH 27.7 MCHC 32.0 RDW 13.7 Plt Count 240 MPV 8.1 D Sodium 139 Potassium 4.1 Chloride 106 Carbon Dioxide 27 Anion Gap 6 L BUN 12 D Creatinine 0.7 D Creat Clearance w eGFR > 60 POC Glucometer Random Glucose 109 H D Calcium 8.7 Total Bilirubin 0.5 D AST 14 L D ALT 25 Alkaline Phosphatase 118 H Total Protein 6.6 Albumin 3.1 L D Urine Color Urine Appearance Urine pH Ur Specific [place] Urine Protein Urine Glucose (UA) Urine Ketones Urine Blood Urine Nitrite Urine Bilirubin Urine Urobilinogen Ur Leukocyte Esterase RPR Titer Nonreactive 08/28/17 08/29/17 16:30 05:39 WBC RBC Hgb Hct MCV MCH MCHC RDW Plt Count MPV Sodium Potassium Chloride Carbon Dioxide Anion Gap BUN Creatinine Creat Clearance w eGFR POC Glucometer 163 213 Random Glucose Calcium Total Bilirubin AST ALT Alkaline Phosphatase Total Protein Albumin Urine Color Urine Appearance Urine pH Ur Specific [place] Urine Protein Urine Glucose (UA) Urine Ketones Urine Blood Urine Nitrite Urine Bilirubin Urine Urobilinogen Ur Leukocyte Esterase RPR Titer LABS NOTED. Assessment: 08/29/17 14:19 WITHDRAWAL SYMPTOMS. Plan: CONTINUE DETOX. INCREASE DAILY PO FLUID INTAKE.
[2017-08-29] MEDS: hydrOXYzine PAMOATE 25 MG CAPSULE (FP) PO PRN ×2 (17:13→22:18)
[2017-08-29] MEDS: QUEtiapine FUMARATE 200 MG TABLET PO SCH (22:18)
[2017-08-29] MEDS: THIAMINE HCL 100 MG TABLET (FP) PO SCH (22:18)
--- NOTE | 2017-08-29 22:27 | EKG ---
Test Reason : Blood Pressure : / mmHG Vent. Rate : 063 BPM Atrial Rate : 063 BPM P-R Int : 186 ms QRS Dur : 076 ms QT Int : 408 ms P-R-T Axes : 040 074 067 degrees QTc Int : 417 ms NORMAL SINUS RHYTHM EARLY R WAVE PROGRESSION WHEN COMPARED WITH ECG OF 27-AUG-2017 19:56, NO SIGNIFICANT CHANGE WAS FOUND Confirmed by JULES SANDERS MD ([id number]) on 08/29/2017 10:26:55 PM Referred By: Confirmed By:JULES SANDERS MD
[2017-08-30] MEDS: CIPROFLOXACIN HCL 0.3% OPHTH 2.5ML BOTTLE OU SCH ×5 (05:18→22:09)
[2017-08-30] MEDS: INSULIN DETEMIR 100 UNITS/ML MDV SQ SCH (07:28)
[2017-08-30] MEDS: metFORMIN HCL 500 MG TABLET (FP) PO SCH ×2 (07:29→16:36)
[2017-08-30] MEDS ORDERED: METHADONE HCL 5 MG TABLET (FOR DETOX USE ONLY) PO ONE (10:00)
[2017-08-30] MEDS ORDERED: METHADONE HCL 10 MG TABLET (FOR DETOX USE ONLY) PO ONE (10:00)
[2017-08-30] MEDS: PRENATAL VITAMINS W/ FOLIC ACID TABLET (FP) PO SCH (10:27)
[2017-08-30] MEDS: LOSARTAN POTASSIUM 25 MG TABLET PO SCH (10:27)
[2017-08-30] MEDS: NICOTINE 21 MG/24 HOURS TOPICAL PATCH TD SCH (10:27)
[2017-08-30] MEDS: hydrOXYzine PAMOATE 25 MG CAPSULE (FP) PO PRN ×2 (10:30→22:09)
--- NOTE | 2017-08-30 12:16 | PN ---
BHS Progress Note (SOAP) Subjective: Anxious, Sweating. Objective: PT. A & O X 3, OBSERVED AMBULATING ON UNIT. NO ACUTE DISTRESS. 08/30/17 12:14 Vital Signs Temperature 97.1 F L 08/30/17 10:00 Pulse Rate 82 08/30/17 10:00 Respiratory Rate 20 08/30/17 10:00 Blood Pressure 139/93 08/30/17 10:00 O2 Sat by Pulse Oximetry (%) Laboratory Tests 08/27/17 08/27/17 08/28/17 15:39 22:00 05:18 WBC RBC Hgb Hct MCV MCH MCHC RDW Plt Count MPV Sodium Potassium Chloride Carbon Dioxide Anion Gap BUN Creatinine Creat Clearance w eGFR POC Glucometer 121 147 Random Glucose Calcium Total Bilirubin AST ALT Alkaline Phosphatase Total Protein Albumin Urine Color Yellow Urine Appearance Clear Urine pH 5.0 Ur Specific [place] 1.025 Urine Protein Negative Urine Glucose (UA) Negative Urine Ketones Negative Urine Blood Negative Urine Nitrite Negative Urine Bilirubin Negative Urine Urobilinogen Negative Ur Leukocyte Esterase Negative RPR Titer 08/28/17 08/28/17 08/28/17 07:00 07:00 07:00 WBC 5.8 RBC 4.60 Hgb 12.7 Hct 39.8 MCV 86.6 MCH 27.7 MCHC 32.0 RDW 13.7 Plt Count 240 MPV 8.1 D Sodium 139 Potassium 4.1 Chloride 106 Carbon Dioxide 27 Anion Gap 6 L BUN 12 D Creatinine 0.7 D Creat Clearance w eGFR > 60 POC Glucometer Random Glucose 109 H D Calcium 8.7 Total Bilirubin 0.5 D AST 14 L D ALT 25 Alkaline Phosphatase 118 H Total Protein 6.6 Albumin 3.1 L D Urine Color Urine Appearance Urine pH Ur Specific [place] Urine Protein Urine Glucose (UA) Urine Ketones Urine Blood Urine Nitrite Urine Bilirubin Urine Urobilinogen Ur Leukocyte Esterase RPR Titer Nonreactive 08/28/17 08/29/17 08/29/17 16:30 05:39 16:20 WBC RBC Hgb Hct MCV MCH MCHC RDW Plt Count MPV Sodium Potassium Chloride Carbon Dioxide Anion Gap BUN Creatinine Creat Clearance w eGFR POC Glucometer 163 213 268 Random Glucose Calcium Total Bilirubin AST ALT Alkaline Phosphatase Total Protein Albumin Urine Color Urine Appearance Urine pH Ur Specific [place] Urine Protein Urine Glucose (UA) Urine Ketones Urine Blood Urine Nitrite Urine Bilirubin Urine Urobilinogen Ur Leukocyte Esterase RPR Titer 11/24/17 05:17 WBC RBC Hgb Hct MCV MCH MCHC RDW Plt Count MPV Sodium Potassium Chloride Carbon Dioxide Anion Gap BUN Creatinine Creat Clearance w eGFR POC Glucometer 269 Random Glucose Calcium Total Bilirubin AST ALT Alkaline Phosphatase Total Protein Albumin Urine Color Urine Appearance Urine pH Ur Specific [place] Urine Protein Urine Glucose (UA) Urine Ketones Urine Blood Urine Nitrite Urine Bilirubin Urine Urobilinogen Ur Leukocyte Esterase RPR Titer LABS NOTED. Assessment: 08/30/17 12:14 WITHDRAWAL SYMPTOMS Plan: CONTINUE DETOX. INCREASE DAILY PO FLUID INTAKE.
[2017-08-30] MEDS: QUEtiapine FUMARATE 200 MG TABLET PO SCH (22:08)
[2017-08-30] MEDS: THIAMINE HCL 100 MG TABLET (FP) PO SCH (22:08)
[2017-08-31] MEDS: CIPROFLOXACIN HCL 0.3% OPHTH 2.5ML BOTTLE OU SCH (05:42)
[2017-08-31] MEDS ORDERED: METHADONE HCL 5 MG TABLET (FOR DETOX USE ONLY) PO ONE (06:00)
[2017-08-31 06:02] VITALS: BP 147/89; PULSE 62; TEMP 96.9
[2017-08-31] MEDS: metFORMIN HCL 500 MG TABLET (FP) PO SCH (06:32)
[2017-08-31] MEDS: INSULIN DETEMIR 100 UNITS/ML MDV SQ SCH (06:33)
[2017-08-31] MEDS ORDERED: METHADONE HCL 10 MG TABLET (FOR DETOX USE ONLY) PO ONE (10:00)
--- NOTE | 2017-08-31 14:45 | DS ---
[facility] Detox Discharge Summary Admission Date: 08/27/17 Discharge Date: 08/31/17 - History Present History: Opioid Dependence Additional Comments: PATIENT GOING HOME AT THIS TIME. PATIENT ADVISED TO CONSIDER LOCAL 12-STEP /NA/ AA OUTPATIENT SUPPORT GROUP MEETINGS FOR AFTERCARE. PATIENT WAS DISCHARGED FROM DETOX UNIT IN STABLE MEDICAL CONDITION. Pertinent Past History: Hep C, HTN, Hyperlipidemia, Type II DM, Insomnia, Depression, Nicotine Dependence, History of Conjunctivitis of both Eyes. - Physical Exam Results Vital Signs: Vital Signs Temperature 96.9 F L 08/31/17 06:02 Pulse Rate 62 08/31/17 06:02 Respiratory Rate 18 08/31/17 06:02 Blood Pressure 147/89 08/31/17 06:02 O2 Sat by Pulse Oximetry (%) Pertinent Admission Physical Exam Findings: WITHDRAWAL SYMPTOMS. Laboratory Tests 08/27/17 08/27/17 08/28/17 15:39 22:00 05:18 WBC RBC Hgb Hct MCV MCH MCHC RDW Plt Count MPV Sodium Potassium Chloride Carbon Dioxide Anion Gap BUN Creatinine Creat Clearance w eGFR POC Glucometer 121 147 Random Glucose Calcium Total Bilirubin AST ALT Alkaline Phosphatase Total Protein Albumin Urine Color Yellow Urine Appearance Clear Urine pH 5.0 Ur Specific [place] 1.025 Urine Protein Negative Urine Glucose (UA) Negative Urine Ketones Negative Urine Blood Negative Urine Nitrite Negative Urine Bilirubin Negative Urine Urobilinogen Negative Ur Leukocyte Esterase Negative RPR Titer 08/28/17 08/28/17 08/28/17 07:00 07:00 07:00 WBC 5.8 RBC 4.60 Hgb 12.7 Hct 39.8 MCV 86.6 MCH 27.7 MCHC 32.0 RDW 13.7 Plt Count 240 MPV 8.1 D Sodium 139 Potassium 4.1 Chloride 106 Carbon Dioxide 27 Anion Gap 6 L BUN 12 D Creatinine 0.7 D Creat Clearance w eGFR > 60 POC Glucometer Random Glucose 109 H D Calcium 8.7 Total Bilirubin 0.5 D AST 14 L D ALT 25 Alkaline Phosphatase 118 H Total Protein 6.6 Albumin 3.1 L D Urine Color Urine Appearance Urine pH Ur Specific [place] Urine Protein Urine Glucose (UA) Urine Ketones Urine Blood Urine Nitrite Urine Bilirubin Urine Urobilinogen Ur Leukocyte Esterase RPR Titer Nonreactive 08/28/17 08/29/17 08/29/17 16:30 05:39 16:20 WBC RBC Hgb Hct MCV MCH MCHC RDW Plt Count MPV Sodium Potassium Chloride Carbon Dioxide Anion Gap BUN Creatinine Creat Clearance w eGFR POC Glucometer 163 213 268 Random Glucose Calcium Total Bilirubin AST ALT Alkaline Phosphatase Total Protein Albumin Urine Color Urine Appearance Urine pH Ur Specific [place] Urine Protein Urine Glucose (UA) Urine Ketones Urine Blood Urine Nitrite Urine Bilirubin Urine Urobilinogen Ur Leukocyte Esterase RPR Titer 08/30/17 08/30/17 08/30/17 05:17 16:34 21:41 WBC RBC Hgb Hct MCV MCH MCHC RDW Plt Count MPV Sodium Potassium Chloride Carbon Dioxide Anion Gap BUN Creatinine Creat Clearance w eGFR POC Glucometer 269 314 243 Random Glucose Calcium Total Bilirubin AST ALT Alkaline Phosphatase Total Protein Albumin Urine Color Urine Appearance Urine pH Ur Specific [place] Urine Protein Urine Glucose (UA) Urine Ketones Urine Blood Urine Nitrite Urine Bilirubin Urine Urobilinogen Ur Leukocyte Esterase RPR Titer 08/31/17 05:40 WBC RBC Hgb Hct MCV MCH MCHC RDW Plt Count MPV Sodium Potassium Chloride Carbon Dioxide Anion Gap BUN Creatinine Creat Clearance w eGFR POC Glucometer 168 Random Glucose Calcium Total Bilirubin AST ALT Alkaline Phosphatase Total Protein Albumin Urine Color Urine Appearance Urine pH Ur Specific [place] Urine Protein Urine Glucose (UA) Urine Ketones Urine Blood Urine Nitrite Urine Bilirubin Urine Urobilinogen Ur Leukocyte Esterase RPR Titer LABS NOTED. - Treatment Hospital Course: Detox Protocol Followed, Detoxed Safely, Responded well, Discharged Condition Good Patient has Accepted a Rehab Referral to: PT GOING HOME, ADVISED TO CONSIDER LOCAL 12-STEP/NA SUPPORT GROUPS. - Medication Discharge Medications: Ambulatory Orders Insulin Glargine,Hum.rec.anlog [Lantus (10mL VIAL) -] 16 units SQ DAILY Losartan Potassium [Cozaar -] 25 mg PO DAILY 08/31/16 Metformin HCl [Glucophage -] 500 mg PO BID 08/31/16 Quetiapine Fumarate [Seroquel -] 200 mg PO HS #30 tab 03/20/17 Quetiapine Fumarate [Seroquel -] 200 mg PO HS #30 tab 08/28/17 - Diagnosis (1) Opioid dependence with withdrawal Status: Acute (2) Conjunctivitis, both eyes Status: Acute Qualifiers: Conjunctivitis type: acute Acute conjunctivitis type: unspecified Qualified Code(s): H10.33 - Unspecified acute conjunctivitis, bilateral (3) Insomnia Status: Acute Qualifiers: Insomnia type: unspecified Qualified Code(s): G47.00 - Insomnia, unspecified (4) Substance induced mood disorder Status: Acute (5) HLD (hyperlipidemia) Status: Chronic Qualifiers: Hyperlipidemia type: unspecified Qualified Code(s): E78.5 - Hyperlipidemia , unspecified (6) Hypertension Status: Chronic Qualifiers: Hypertension type: essential hypertension Qualified Code(s): I10 - Essential (primary) hypertension (7) Nicotine dependence Status: Chronic Qualifiers: Nicotine product type: cigarettes Substance use status: uncomplicated Qualified Code(s): F17.210 - Nicotine dependence, cigarettes, uncomplicated (8) Type 2 diabetes mellitus Status: Chronic Qualifiers: Diabetes mellitus complication status: without complication Diabetes mellitus detention insulin use: with ad terminal makeup operator use Qualified Code(s): E11.9 - Type 2 diabetes mellitus without complications; Z79.4 - group home (current) use of insulin; Z79.4 - intermission coordinator (current) use of insulin; Z79.4 - intermission coordinator ( current) use of insulin; Z79.4 - intermission coordinator (current) use of insulin (9) Depression (emotion) Status: Suspected Qualifiers: Depression Type: dysthymia Qualified Code(s): F34.1 - Dysthymic disorder - AMA Did Patient Leave Against Medical Advice: No
[2017-09-01] MEDS ORDERED: METHADONE HCL 5 MG TABLET (FOR DETOX USE ONLY) PO ONE (06:00)
== END 2017-08-31 06:49 | disposition home or self-care (01) | DRG 897 ==
LOC: YASAS 14:20 → Y3N 16:25
PROVIDERS: ADMIT Internal Medicine; ATTEND Internal Medicine
PROC: HZ2ZZZZ Detoxification Services for Substance Abuse Treatment (ICD-10-PCS; principal; 2017-08-27)
DX: F11.23 Opioid dependence with withdrawal (principal); F17.210 Nicotine dependence, cigarettes, uncomplicated; F34.1 Dysthymic disorder; F19.24 Other psychoactive substance dependence with psychoactive substance-induced mood disorder; G47.00 Insomnia, unspecified; I10 Essential (primary) hypertension; E78.5 Hyperlipidemia, unspecified; E11.9 Type 2 diabetes mellitus without complications; Z79.4 Long term (current) use of insulin; Z79.84 Long term (current) use of oral hypoglycemic drugs; H10.33 Unspecified acute conjunctivitis, bilateral; H04.129 Dry eye syndrome of unspecified lacrimal gland; B18.2 Chronic viral hepatitis C
CPT/HCPCS: 36415; 80053; 81003; 85027; 86593; 90688; 93005; 93010

== ENCOUNTER 2017-12-24 18:51 | Inpatient (IN) | payer OTHER ==
--- NOTE | 2017-12-25 00:51 | HP ---
COWS - Scale Resting Pulse: 0= MD 80 or Below Sweatin= No chills or Flushing Restless Observation: 3= Extraneous Movement Pupil Size: 1= Pupils >than Normal Bone or Joint Aches: 4=Acute Joint/Muscle Pain Runny Nose/ Eye Tearin= Runny Nose/Eyes GI Upset > 30mins: 1= Stomach Cramp Tremor Observation: 1= Tremor [place], Not Seen Yawning Observation: 0= None Anxiety or Irritability: 2=Irritable/Anxious Goose Flesh Skin: 0=Smooth Skin COWS Score: 14 Admission ROS [facility] Chief Complaint: "I NEED TO DETOX OFF HEROIN" Allergies/Adverse Reactions: Allergies Allergy/AdvReac Type Severity Reaction Status Date / Time No Known Allergies Allergy Verified 12/25/17 00:34 History of Present Illness: 57 Y.O. MALE WITH LONG HX/O HEROIN DEPENDENCE ADMITTED TO DETOX. CLIENT IS KNOWN TO THIS PROGRAM. LAST HERE IN AUG 2017. SELF REFERRED. UTOX + FOR METHADONE DENIES MMTP. TOOK A SIP OF HIS GIRLFRIENDS METHADONE TIS MORNING. HX/O HTN, DM PRESENTLY BEING TREATED FOR CONJUNCTIVITIS. [facility] HAS ALREADY HAD 3 DAYS WORTH OF TXMENT AND HX/O ECZEMA. REPORTS LONGEST CLEAN TIME 5 YEARS Exam Limitations: No Limitations - Ebola screening Have you traveled outside of the country in the last 21 days: No Have you had contact with anyone from an Ebola affected area: No Have you been sick,other than usual withdrawal symptoms: No Do you have a fever: No - Review of Systems Constitutional: Malaise, Changes in sleep EENT: reports: Other (CONJUNCTIVITS) Respiratory: reports: No Symptoms reported Cardiac: reports: No Symptoms Reported GI: reports: Abdominal cramping : reports: No Symptoms Reported Musculoskeletal: reports: No Symptoms Reported Integumentary: reports: Other (ECZEMA) Neuro: reports: No Symptoms reported Endocrine: reports: Other (HX/O DM) Hematology: reports: No Symptoms Reported Psychiatric: reports: Anxious, Depressed, other (INSOMNIA) Other Systems: Reviewed and Negative Patient History - Patient Medical History Hx Anemia: No Hx Asthma: No Hx Chronic Obstructive Pulmonary Disease (COPD): No Hx Cancer: No Hx Cardiac Disorders: No Hx Congestive Heart Failure: No Hx Hypertension: Yes Hx Hypercholesterolemia: Yes Hx Pacemaker: No HX Cerebrovascular Accident: No Hx Seizures: No Hx Dementia: No Hx Diabetes: Yes Hx Gastrointestinal Disorders: No Hx Liver Disease: No Hx Genitourinary Disorders: No Hx Sexually Transmitted Disorders: No Hx Renal Disease (ESRD): No Hx Thyroid Disease: No Hx Human Immunodeficiency Virus (HIV): No Hx Hepatitis C: Yes (NON DETECTABLE) Hx Depression: Yes (on med) Hx Suicide Attempt: No Hx Bipolar Disorder: No Hx Schizophrenia: No Other Medical History: INSOMNIA, ANXIETY - Patient Surgical History Past Surgical History: No Hx Neurologic Surgery: No Hx Cataract Extraction: No Hx Cardiac Surgery: No Hx Lung Surgery: No Hx Breast Surgery: No Hx Breast Biopsy: No Hx Abdominal Surgery: No Hx Appendectomy: No Hx Cholecystectomy: No Hx Genitourinary Surgery: No Hx Section: No Hx Orthopedic Surgery: No Anesthesia Reaction: No - PPD History Previous Implant?: Yes Documented Results: Negative w/proof Implanted On Prior [facility] Admission?: Yes Date: 08/29/17 Results: 0MM PPD to be Administered?: No - Smoking Cessation Smoking history: Current every day smoker Have you smoked in the past 12 months: Yes Aproximately how many cigarettes per day: 10 Cigars Per Day: 0 Hx Chewing Tobacco Use: No Initiated information on smoking cessation: Yes 'Breaking Loose' booklet given: 12/25/17 - Substance & Tx. History Hx Alcohol Use: No Hx Substance Use: Yes Substance Use Type: Heroin Hx Substance Use Treatment: Yes ([facility]) - Substances Abused HEROIN Route: Injection Frequency: Daily Amount used: 3 BAGS Age of first use: 42 Date of Last Use: 12/24/17 Family Disease History - Family Disease History Family Disease History: Diabetes: Father () Admission Physical Exam [facility] Physical General Appearance: Yes: Appropriately Dressed, Anxious HEENTM: Yes: EOMI, Normocephalic, MOUNA, Pharynx Normal, Other (PROTUDING CONJUNTIVA) Respiratory: Yes: Chest Non-Tender, No Respiratory Distress, No Accessory Muscle Use, Wheezing Neck: Yes: No masses,lesions,Nodules, Supple, Trachea in good position Breast: Yes: Breast Exam Deferred Cardiology: Yes: Regular Rhythm, Regular Rate, S1, S2 Abdominal: Yes: Normal Bowel Sounds, Non Tender, Flat, Soft Genitourinary: Yes: Other (NO C/O) Back: Yes: Normal Inspection Musculoskeletal: Yes: Other (R HAND CONTRACTURE) Extremities: Yes: Non-Tender, Tremors (FELT), Other (R HAND CONTRACTURES) Neurological: Yes: Alert, Other (R HAND PARALYSIS) Integumentary: Yes: Track [place], Other (OLD SCARS FROM ABCESS) Lymphatic: Yes: Within Normal Limits - Diagnostic (1) Conjunctivitis, both eyes Current Visit: Yes Status: Chronic Qualifiers: Conjunctivitis type: acute Acute conjunctivitis type: bacterial Qualified Code(s): H10.33 - Unspecified acute conjunctivitis, bilateral (2) Opioid dependence with withdrawal Current Visit: Yes Status: Chronic (3) HLD (hyperlipidemia) Current Visit: Yes Status: Chronic Qualifiers: Hyperlipidemia type: unspecified Qualified Code(s): E78.5 - Hyperlipidemia , unspecified (4) Hypertension Current Visit: Yes Status: Chronic Qualifiers: Hypertension type: essential hypertension Qualified Code(s): I10 - Essential (primary) hypertension (5) Nicotine dependence Current Visit: Yes Status: Chronic Qualifiers: Nicotine product type: cigarettes Substance use status: uncomplicated Qualified Code(s): F17.210 - Nicotine dependence, cigarettes, uncomplicated (6) Type 2 diabetes mellitus Current Visit: Yes Status: Chronic Qualifiers: Diabetes mellitus remote computer terminal operator insulin use: with shelter use Diabetes mellitus complication status: without complication Qualified Code(s): E11.9 - Type 2 diabetes mellitus without complications; Z79.4 - [facility] (current) use of insulin; Z79.4 - ad terminal makeup operator (current) use of insulin; Z79.4 - [facility] ( current) use of insulin; Z79.4 - ad terminal makeup operator (current) use of insulin Cleared for Admission [facility] - Detox or Rehab [facility] Level of Care: Medically Managed Detox Regimen/Protocol: Methadone Claeared for Rehab Admission: No S Breath Alcohol Content Breath Alcohol Content: 0
[2017-12-25] MEDS ORDERED: ACETAMINOPHEN 325 MG TABLET (FP) PO PRN (01:01)
[2017-12-25] MEDS ORDERED: MAGNESIUM CITRATE 300 ML BOTTLE PO PRN (01:01)
[2017-12-25] MEDS ORDERED: METHADONE HCL 10 MG TABLET (FOR DETOX USE ONLY) PO ONE ×3 (01:01→23:00)
[2017-12-25] MEDS ORDERED: LOPERAMIDE HCL 2 MG CAPSULE PO PRN (01:01)
[2017-12-25] MEDS ORDERED: MAGNESIUM HYDROX 2400MG/30ML ORAL SUSPENSION 30 ML CUP PO PRN (01:01)
[2017-12-25] MEDS ORDERED: P-EPHED 60MG/TRIPROLIDI 2.5MG TABLET PO PRN (01:01)
[2017-12-25] MEDS ORDERED: NICOTINE POLACRILEX 2 MG GUM BC PRN (01:01)
[2017-12-25] MEDS ORDERED: MENTHOL/PHENOL 1 EACH UD MM PRN (01:01)
[2017-12-25] MEDS ORDERED: MAG HYDROX/AL HYDROX/SIMETH 30 ML UNIT-DOSE CUP PO PRN (01:01)
[2017-12-25] MEDS ORDERED: IBUPROFEN 400 MG TABLET (FP) PO PRN (01:01)
[2017-12-25] MEDS ORDERED: guaiFENesin/D-METHORPHAN HB 10 ML UNIT-DOSE CUPS PO PRN (01:01)
[2017-12-25] MEDS: diazePAM 5 MG TABLET PO PRN (01:50)
[2017-12-25] MEDS: metFORMIN HCL 500 MG TABLET (FP) PO SCH ×2 (06:20→16:35)
--- NOTE | 2017-12-25 08:06 | CONSULT ---
[facility] Psychiatric Consult - Data Date of interview: 12/25/17 Admission source: [facility] Identifying data: This is 57 years old male, single, unemployed on SSD, living alone with no psychiatric hospitalization history, here for detoxification due to abusing Heroin and Nicotine Substance Abuse History: - Smoking Cessation. Smoking history: Current every day smoker. Have you smoked in the past 12 months: Yes. Aproximately how many cigarettes per day: 10. Cigars Per Day: 0. Hx Chewing Tobacco Use: No. Initiated information on smoking cessation: Yes. 'Breaking Loose' booklet given : 12/25/17. - Substance & Tx. History. Hx Alcohol Use: No. Hx Substance Use: Yes. Substance Use Type: Heroin. Hx Substance Use Treatment: Yes ([facility]). - Substances Abused. HEROIN. Route: Injection. Frequency: Daily. Amount used: 3 BAGS. Age of first use: 42. Date of Last Use: 12/24/17 Medical History: DM-2, Hyperlipidemia, HepC+, HTN Psychiatric History: Patient reports anxiety and depression history, insomnia , reports taking prior to admission: Seroquel 200mg po qhs Physical/Sexual Abuse/Trauma History: Denies Additional Comment: Seroquel 200mg po qhs Mental Status Exam - Mental Status Exam Alert and Oriented to: Person Cognitive Function: Fair Patient Appearance: Unkempt Mood: Sad Affect: Flat Patient Behavior: Cooperative Speech Pattern: Appropriate Voice Loudness: Mildly Soft/Quiet Thought Process: Circumstantial Thought Disorder: Being Controlled Hallucinations: Denies Suicidal Ideation: Denies Homicidal Ideation: Denies Insight/Judgement: Fair Sleep: Difficulty falling asleep Appetite: Fair Muscle strength/Tone: Mild Hypotonicity Gait/Station: Shuffling Additional Comments: Seroquel 200mg po qhs Psychiatric Findings - Problem List ([place] 1, 2,3) (1) Nicotine dependence Current Visit: Yes Status: Chronic Qualifiers: Nicotine product type: cigarettes Substance use status: uncomplicated Qualified Code(s): F17.210 - Nicotine dependence, cigarettes, uncomplicated (2) Opioid dependence with withdrawal Current Visit: Yes Status: Chronic (3) Drug-induced mood disorder Current Visit: Yes Status: Acute - Initial Treatment Plan Initial Treatment Plan: Seroquel 200mg po qhs
--- NOTE | 2017-12-25 09:58 | EKG ---
Test Reason : Blood Pressure : / mmHG Vent. Rate : 050 BPM Atrial Rate : 050 BPM P-R Int : 172 ms QRS Dur : 084 ms QT Int : 440 ms P-R-T Axes : 039 072 067 degrees QTc Int : 401 ms SINUS BRADYCARDIA OTHERWISE NORMAL ECG WHEN COMPARED WITH ECG OF 28-AUG-2017 16:56, NO SIGNIFICANT CHANGE WAS FOUND Confirmed by DENIS CROW MD ([id number]) on 12/25/2017 9:58:06 AM Referred By: Confirmed By:DENIS CROW MD
--- NOTE | 2017-12-25 10:04 | PN ---
BHS COWS - Scale Resting Pulse: 0= [place] 80 or Below Sweatin= Chills/Flushing Restless Observation: 3= Extraneous Movement Pupil Size: 1= Pupils >than Normal Bone or Joint Aches: 2= Severe Diffuse Aches Runny Nose/ Eye Tearin= Runny Nose/Eyes GI Upset > 30mins: 2= Nausea/Diarrhea Tremor Observation of Outstretched Hands: 2= Slight Tremor Visible Yawning Observation: 1= 1-2x During Session Anxiety or Irritability: 2=Irritable/Anxious Goose Flesh Skin: 0=Smooth Skin COWS Score: 16 BHS Progress Note (SOAP) Subjective: ALERT,IRRITABLE,ANXIOUS,INTERRUPTED SLEEP,TREMOR,PAIN IN THE BODY AND BACK, TREMOR Objective: 12/25/17 10:01 Vital Signs Temperature 97.5 F L 12/25/17 06:00 Pulse Rate 57 L 12/25/17 06:00 Respiratory Rate 18 12/25/17 06:00 Blood Pressure 139/69 12/25/17 06:00 O2 Sat by Pulse Oximetry (%) EKG SINUS BRADYCARDIA 50/MIN NO CHEST PAIN,NO SOB,NO DIZZINESS Laboratory Last Values POC Glucometer 157 UNITS (80-120) 12/25/17 06:06 LABS PENDING Assessment: 12/25/17 10:02 WITHDRAWAL SYMPTOM Plan: CONTINUE DETOX,BGM MONITORING,BGM 157
[2017-12-25 10:12] LABS: HEMATOCRIT 36.4 % (35.4-49); HEMOGLOBIN 11.9 GM/dL (11.7-16.9); MCH 28.5 pg (25.7-33.7); MCHC 32.7 g/dl (32.0-35.9); MEAN CELL VOLUME 87.2 fl (80-96); MEAN PLT VOLUME 7.9 fl (7.5-11.1); PLATELET COUNT 229 K/MM3 (134-434); RBC 4.17 M/mm3 (4.00-5.60); RDW 14.7 % (11.9-15.9); WHITE BLOOD COUNT 6.1 K/mm3 (4.0-10.0)
[2017-12-25 10:44] LABS: CHLORIDE 106 mmol/L (98-107); SODIUM 141 mmol/L (136-145)
[2017-12-25] MEDS: PRENATAL VITAMINS W/ FOLIC ACID TABLET (FP) PO SCH (11:06)
[2017-12-25 11:08] LABS: ALBUMIN 3.4 g/dl (3.4-5.0); ALK PHOS 127 U/L (45-117); ANION GAP 10 (8-16); BILIRUBIN,TOTAL 0.6 mg/dL (0.2-1.0); BLOOD UREA NITROGEN 13 mg/dL (7-18); CALCIUM 8.6 mg/dL (8.5-10.1); CO2 25 mmol/L (21-32); CREATININE 0.7 mg/dL (0.7-1.3); GLUCOSE,RANDOM 146 mg/dL (74-106); SGOT/AST 16 U/L (15-37); SGPT/ALT 26 U/L (12-78); TOT PROT 6.8 g/dl (6.4-8.2)
[2017-12-25] MEDS: NICOTINE 14 MG/24 HOURS TOPICAL PATCH TD SCH (11:09)
[2017-12-25] MEDS: LISINOPRIL 20 MG TABLET (FP) PO SCH (11:09)
[2017-12-25 13:31] LABS: URINE APPEARANCE CLEAR; URINE BILIRUBIN NEGATIVE (NEGATIVE); URINE COLOR LTYELLOW; URINE GLUCOSE (UA) NEGATIVE (NEGATIVE); URINE KETONE NEGATIVE (NEGATIVE); URINE LEUK ESTERASE NEGATIVE (NEGATIVE); URINE NITRITE NEGATIVE (NEGATIVE); URINE PROTEIN NEGATIVE (NEGATIVE); URINE UROBILINOGEN NEGATIVE mg/dL (0.2-1.0)
[2017-12-25] MEDS: CIPROFLOXACIN 0.3% EYE DROPS 5 ML BOTTLE OU SCH ×2 (14:37→22:42)
[2017-12-25] MEDS: NEO/POLYMYX B SULF/DEXAMETH OPHTHALMIC OINTMENT 3.5 GM OU SCH ×2 (14:38→22:43)
[2017-12-25] MEDS: FLUOCINONIDE 0.05% TOP OINT (15 GM TUBE) TP SCH (22:43)
[2017-12-25] MEDS: QUEtiapine FUMARATE 200 MG TABLET PO SCH (22:43)
[2017-12-25] MEDS: ATORVASTATIN CA 40 MG TABLET (FP) PO SCH (22:43)
[2017-12-25] MEDS: THIAMINE HCL 100 MG TABLET (FP) PO SCH (22:50)
[2017-12-25] MEDS: MELATONIN 5 MG TABLETS PO SCH (23:11)
[2017-12-26] MEDS: diazePAM 5 MG TABLET PO PRN ×2 (05:37→10:30)
[2017-12-26] MEDS: metFORMIN HCL 500 MG TABLET (FP) PO SCH ×2 (08:01→17:30)
[2017-12-26] MEDS ORDERED: METHADONE HCL 5 MG TABLET (FOR DETOX USE ONLY) PO ONE (10:00)
[2017-12-26] MEDS ORDERED: METHADONE HCL 10 MG TABLET (FOR DETOX USE ONLY) PO ONE (10:00)
[2017-12-26] MEDS: FLUOCINONIDE 0.05% TOP OINT (15 GM TUBE) TP SCH ×2 (10:30→22:35)
[2017-12-26] MEDS: PRENATAL VITAMINS W/ FOLIC ACID TABLET (FP) PO SCH (10:30)
[2017-12-26] MEDS: NICOTINE 14 MG/24 HOURS TOPICAL PATCH TD SCH (10:31)
[2017-12-26] MEDS: CIPROFLOXACIN 0.3% EYE DROPS 5 ML BOTTLE OU SCH ×2 (10:31→22:35)
[2017-12-26] MEDS: NEO/POLYMYX B SULF/DEXAMETH OPHTHALMIC OINTMENT 3.5 GM OU SCH ×2 (10:31→22:36)
[2017-12-26] MEDS: LISINOPRIL 20 MG TABLET (FP) PO SCH (10:32)
--- NOTE | 2017-12-26 11:16 | PN ---
BHS COWS - Scale Resting Pulse: 0= DC 80 or Below Sweatin= Chills/Flushing Restless Observation: 3= Extraneous Movement Pupil Size: 1= Pupils >than Normal Bone or Joint Aches: 2= Severe Diffuse Aches Runny Nose/ Eye Tearin= Runny Nose/Eyes GI Upset > 30mins: 2= Nausea/Diarrhea Tremor Observation of Outstretched Hands: 2= Slight Tremor Visible Yawning Observation: 1= 1-2x During Session Anxiety or Irritability: 2=Irritable/Anxious Goose Flesh Skin: 0=Smooth Skin COWS Score: 16 BHS Progress Note (SOAP) Subjective: ALERT,IRRITABLE,ANXIOUS,INTERRUPTED SLEEP,PAIN IN THE BODY Objective: 12/26/17 11:13 Vital Signs Temperature 99.3 F 12/26/17 10:00 Pulse Rate 61 12/26/17 10:00 Respiratory Rate 18 12/26/17 10:00 Blood Pressure 123/70 12/26/17 10:00 O2 Sat by Pulse Oximetry (%) Laboratory Last Values WBC 6.1 K/mm3 (4.0-10.0) 12/25/17 07:00 RBC 4.17 M/mm3 (4.00-5.60) 12/25/17 07:00 Hgb 11.9 GM/dL (11.7-16.9) 12/25/17 07:00 Hct 36.4 % (35.4-49) 12/25/17 07:00 MCV 87.2 fl (80-96) 12/25/17 07:00 MCH 28.5 pg (25.7-33.7) 12/25/17 07:00 MCHC 32.7 g/dl (32.0-35.9) 12/25/17 07:00 RDW 14.7 % (11.9-15.9) 12/25/17 07:00 Plt Count 229 K/MM3 (134-434) 12/25/17 07:00 MPV 7.9 fl (7.5-11.1) 12/25/17 07:00 Sodium 141 mmol/L (136-145) 12/25/17 07:00 Potassium 4.0 mmol/L (3.5-5.1) 12/25/17 07:00 Chloride 106 mmol/L (98-107) 12/25/17 07:00 Carbon Dioxide 25 mmol/L (21-32) 12/25/17 07:00 Anion Gap 10 (8-16) 12/25/17 07:00 BUN 13 mg/dL (7-18) 12/25/17 07:00 Creatinine 0.7 mg/dL (0.7-1.3) 12/25/17 07:00 Creat Clearance w eGFR > 60 (>60) 12/25/17 07:00 POC Glucometer 117 UNITS (80-120) 12/26/17 05:39 Random Glucose 146 mg/dL (74-106) H D 12/25/17 07:00 Calcium 8.6 mg/dL (8.5-10.1) 12/25/17 07:00 Total Bilirubin 0.6 mg/dL (0.2-1.0) 12/25/17 07:00 AST 16 U/L (15-37) 12/25/17 07:00 ALT 26 U/L (12-78) 12/25/17 07:00 Alkaline Phosphatase 127 U/L (45-117) H 12/25/17 07:00 Total Protein 6.8 g/dl (6.4-8.2) 12/25/17 07:00 Albumin 3.4 g/dl (3.4-5.0) 12/25/17 07:00 Urine Color Ltyellow 12/25/17 10:20 Urine Appearance Clear 12/25/17 10:20 Urine pH 6.0 (5.0-8.0) 12/25/17 10:20 Ur Specific [place] 1.025 (1.001-1.035) 12/25/17 10:20 Urine Protein Negative (NEGATIVE) 12/25/17 10:20 Urine Glucose (UA) Negative (NEGATIVE) 12/25/17 10:20 Urine Ketones Negative (NEGATIVE) 12/25/17 10:20 Urine Blood Negative (NEGATIVE) 12/25/17 10:20 Urine Nitrite Negative (NEGATIVE) 12/25/17 10:20 Urine Bilirubin Negative (NEGATIVE) 12/25/17 10:20 Urine Urobilinogen Negative mg/dL (0.2-1.0) 12/25/17 10:20 Ur Leukocyte Esterase Negative (NEGATIVE) 12/25/17 10:20 RPR Titer Nonreactive (NONREACTIVE) 12/25/17 07:00 Assessment: 12/26/17 11:14 WITHDRAWAL SYMPTOM BUT LESS 12/26/17 11:15 Plan: CONTINUE DETOX,MEDICATION ADJUST,BGM MONITORING
[2017-12-26] MEDS: THIAMINE HCL 100 MG TABLET (FP) PO SCH (22:35)
[2017-12-26] MEDS: MELATONIN 5 MG TABLETS PO SCH (22:36)
[2017-12-26] MEDS: QUEtiapine FUMARATE 200 MG TABLET PO SCH (22:36)
[2017-12-26] MEDS: ATORVASTATIN CA 40 MG TABLET (FP) PO SCH (22:36)
[2017-12-27] MEDS: metFORMIN HCL 500 MG TABLET (FP) PO SCH ×2 (06:21→17:35)
[2017-12-27] MEDS ORDERED: METHADONE HCL 5 MG TABLET (FOR DETOX USE ONLY) PO ONE (10:00)
[2017-12-27] MEDS ORDERED: METHADONE HCL 10 MG TABLET (FOR DETOX USE ONLY) PO ONE (10:00)
[2017-12-27] MEDS: PRENATAL VITAMINS W/ FOLIC ACID TABLET (FP) PO SCH (10:52)
[2017-12-27] MEDS: NICOTINE 14 MG/24 HOURS TOPICAL PATCH TD SCH (10:53)
[2017-12-27] MEDS: LISINOPRIL 20 MG TABLET (FP) PO SCH (10:53)
[2017-12-27] MEDS: CIPROFLOXACIN 0.3% EYE DROPS 5 ML BOTTLE OU SCH ×2 (10:53→22:22)
[2017-12-27] MEDS: NEO/POLYMYX B SULF/DEXAMETH OPHTHALMIC OINTMENT 3.5 GM OU SCH ×2 (10:54→22:24)
[2017-12-27] MEDS: FLUOCINONIDE 0.05% TOP OINT (15 GM TUBE) TP SCH ×2 (10:54→22:25)
--- NOTE | 2017-12-27 11:41 | PN ---
S Progress Note (SOAP) Subjective: ALERT,IRRITABLE,ANXIOUS,INTERRUPTED SLEEP,PAIN IN BODY Objective: 12/27/17 11:39 Vital Signs Temperature 98.1 F 12/27/17 09:27 Pulse Rate 68 12/27/17 09:27 Respiratory Rate 16 12/27/17 09:27 Blood Pressure 105/62 12/27/17 09:27 O2 Sat by Pulse Oximetry (%) Assessment: 12/27/17 11:40 WITHDRAWAL SYMPTOM Plan: CONTINUE DETOX ,BGM 128
[2017-12-27] MEDS: QUEtiapine FUMARATE 200 MG TABLET PO SCH (22:23)
[2017-12-27] MEDS: THIAMINE HCL 100 MG TABLET (FP) PO SCH (22:23)
[2017-12-27] MEDS: MELATONIN 5 MG TABLETS PO SCH (22:23)
[2017-12-27] MEDS: ATORVASTATIN CA 40 MG TABLET (FP) PO SCH (22:24)
[2017-12-28] MEDS ORDERED: METHADONE HCL 5 MG TABLET (FOR DETOX USE ONLY) PO ONE ×2 (06:00→10:00)
[2017-12-28] MEDS: metFORMIN HCL 500 MG TABLET (FP) PO SCH (07:22)
[2017-12-28 09:36] VITALS: BP 104/50; PULSE 107; TEMP 97.9
--- NOTE | 2017-12-28 12:39 | PN ---
BHS Progress Note (SOAP) Subjective: Feel fine no complaint I have court on saturday I have to help my mother today and do some things tomorrow Objective: 12/28/17 12:35 A & O x 3 gait steady no redness/discharge to eyes Vital Signs Temperature 97.9 F 12/28/17 09:35 Pulse Rate 107 H 12/28/17 09:35 Respiratory Rate 16 12/28/17 09:35 Blood Pressure 104/50 12/28/17 09:35 O2 Sat by Pulse Oximetry (%) Assessment: 12/28/17 12:37 detox successful Plan: for d/c today
--- NOTE | 2017-12-28 12:46 | DS ---
[facility] Detox Discharge Summary Admission Date: 12/24/17 Discharge Date: 12/28/17 - History Additional Comments: pt being discharged today. Had discussed early discharge with previous provider and his med regimen doses had been tapered down. Pt states he has court saturday but has to help his mother do somethings today and tomorrow. Will attend [facility] rehab program Declined need for med refill, stating "I have some and am good" In no macute dsitress, A & O x 3, no adverse signs of detox, denies SI Pertinent Past History: DM 2 HTN hyperlipidemia Hep C - Physical Exam Results Vital Signs: Vital Signs Temperature 97.9 F 12/28/17 09:35 Pulse Rate 107 H 12/28/17 09:35 Respiratory Rate 16 12/28/17 09:35 Blood Pressure 104/50 12/28/17 09:35 O2 Sat by Pulse Oximetry (%) Pertinent Admission Physical Exam Findings: withdrawal sx - Treatment Hospital Course: Detox Protocol Followed, Detoxed Safely, Responded well, Discharged Condition Good Patient has Accepted a Rehab Referral to: [facility] rehab o/p - Medication Discharge Medications: Ambulatory Orders Insulin Glargine,Hum.rec.anlog [Lantus (10mL VIAL) -] 16 units SQ DAILY metFORMIN HCL [Glucophage -] 500 mg PO BID 08/31/16 Atorvastatin Ca [Lipitor] 40 mg PO HS 12/25/17 Ciprofloxacin 0.3% Eye Drops [Ciloxan 0.3% Eye Drops --] 1 drop OU BID 12/25/17 Lisinopril [Lisinopril] 1 tab PO DAILY 12/25/17 Erik/Polymyx B Sulf/Dexameth [Maxitrol -] 1 applic OU BID 12/25/17 Quetiapine Fumarate [Seroquel -] 200 mg PO HS #30 tab 12/25/17 - Diagnosis (1) Opioid dependence with withdrawal Status: Chronic (2) Nicotine dependence Status: Chronic Qualifiers: Nicotine product type: cigarettes Substance use status: uncomplicated Qualified Code(s): F17.210 - Nicotine dependence, cigarettes, uncomplicated (3) Dry eye Status: Chronic (4) HLD (hyperlipidemia) Status: Chronic Qualifiers: Hyperlipidemia type: unspecified Qualified Code(s): E78.5 - Hyperlipidemia , unspecified (5) Hepatitis C Status: Chronic Qualifiers: Viral hepatitis chronicity: carrier Qualified Code(s): B18.2 - Chronic viral hepatitis C (6) Hypertension Status: Chronic Qualifiers: Hypertension type: essential hypertension Qualified Code(s): I10 - Essential (primary) hypertension (7) Type 2 diabetes mellitus Status: Chronic Qualifiers: Diabetes mellitus buttermaker continuous churn insulin use: with prison use Diabetes mellitus complication status: without complication Qualified Code(s): E11.9 - Type 2 diabetes mellitus without complications; Z79.4 - terminal worker (current) use of insulin; Z79.4 - USP (current) use of insulin; Z79.4 - USP ( current) use of insulin; Z79.4 - USP (current) use of insulin (8) Depression (emotion) Status: Suspected Qualifiers: Depression Type: dysthymia Qualified Code(s): F34.1 - Dysthymic disorder - AMA Did Patient Leave Against Medical Advice: No
[2017-12-29] MEDS ORDERED: METHADONE HCL 10 MG TABLET (FOR DETOX USE ONLY) PO ONE (10:00)
[2017-12-30] MEDS ORDERED: METHADONE HCL 5 MG TABLET (FOR DETOX USE ONLY) PO ONE (06:00)
== END 2017-12-28 09:15 | disposition home or self-care (01) | DRG 897 ==
LOC: YASAS 18:51 → Y6N 23:49 → UNDOADMIN 23:49 → Y6N 12-25 06:40 → UNDODISIN 12-28 09:15
PROVIDERS: ADMIT Internal Medicine; ATTEND Internal Medicine
PROC: HZ2ZZZZ Detoxification Services for Substance Abuse Treatment (ICD-10-PCS; principal; 2017-12-24)
DX: F11.23 Opioid dependence with withdrawal (principal); F17.210 Nicotine dependence, cigarettes, uncomplicated; F34.1 Dysthymic disorder; B18.2 Chronic viral hepatitis C; I10 Essential (primary) hypertension; E11.9 Type 2 diabetes mellitus without complications; Z79.4 Long term (current) use of insulin; E78.5 Hyperlipidemia, unspecified; H04.129 Dry eye syndrome of unspecified lacrimal gland; F19.24 Other psychoactive substance dependence with psychoactive substance-induced mood disorder
CPT/HCPCS: 36415; 80053; 81003; 82962; 85027; 86593; 93005; 93010

== ENCOUNTER 2018-03-20 17:03 | Inpatient (IN) | payer OTHER ==
[2018-03-20 18:40] VITALS: BMI 25.2
--- NOTE | 2018-03-20 20:06 | PN ---
[facility] Progress Note Note: Patient is a 57 yo male with hx of HTN, DMII, hyperlipidemia. Present to today for rehabilitation for THC. C/O of intermittent "mild chest pain" midsternal non -radiating. Patient reports he has not taken his BP medications in the last 7 days, reports he is on HCTZ but does not recall the dose and a second BP medication. Patient last admission to [facility] on 12/25/17 - 12/28/17 for opioid detox. Utox today is negative, MAVIS 0.00. Patient denies vertigo, visual changes , paresthesia, SOB or CAUSEY. V/S BP (R) 210/125, (L) 221/128, P84, T98.5, RR21 Patient AOx3, no distress no JVD, S1, s2 negative neuro symp + nail clubbing no adventitious breath sounds ambulating with cane non-infected lesion on the right dawson no edema Plan: Patient elevated BP sent to [facility] via [facility] for further evaluation. Bioinformatics Software Engineer called [facility] several times to endorse patient without success.
--- NOTE | 2018-03-20 21:13 | HP ---
COWS - Scale Resting Pulse: 0= [place] 80 or Below Sweatin=Flushed/Facial Moisture Restless Observation: 0= Sits Still Pupil Size: 1= Pupils >than Normal Bone or Joint Aches: 2= Severe Diffuse Aches Runny Nose/ Eye Tearin= Runny Nose/Eyes GI Upset > 30mins: 1= Stomach Cramp Tremor Observation: 2= Slight Tremor Visible Yawning Observation: 1= 1-2x During Session Anxiety or Irritability: 2=Irritable/Anxious Goose Flesh Skin: 0=Smooth Skin COWS Score: [address] [facility] Chief Complaint: Heroin withdrawal symptoms Allergies/Adverse Reactions: Allergies Allergy/AdvReac Type Severity Reaction Status Date / Time No Known Allergies Allergy Verified 03/20/18 19:33 History of Present Illness: 57 years male with 15 years history of heroin dependence is seeking admission to detox. Patient has been in previous detox and reports 5 years of sobriety. He has medical history Diabetes type 2, Hypertension, hyperlipidemia, anxiety, Hep. C and depression. He denies suicide attempt and suicidal ideation at this time. Exam Limitations: No Limitations - Ebola screening Have you traveled outside of the country in the last 21 days: No (N) Have you had contact with anyone from an Ebola affected area: No Have you been sick,other than usual withdrawal symptoms: No Do you have a fever: No - Review of Systems Constitutional: Chills, Changes in sleep, Weakness EENT: reports: Nose Congestion Respiratory: reports: Shortness of Breath Cardiac: reports: No Symptoms Reported GI: reports: Poor Appetite, Poor Fluid Intake, Abdominal cramping : reports: No Symptoms Reported Musculoskeletal: reports: Back Pain Integumentary: reports: Dryness Neuro: reports: Tremors Endocrine: reports: No Symptoms Reported Hematology: reports: No Symptoms Reported Psychiatric: reports: Anxious, Depressed Other Systems: Reviewed and Negative Patient History - Patient Medical History Hx Anemia: No Hx Asthma: No Hx Chronic Obstructive Pulmonary Disease (COPD): No Hx Cancer: No Hx Cardiac Disorders: No Hx Congestive Heart Failure: No Hx Hypertension: Yes (lisinopril) Hx Hypercholesterolemia: Yes (lipitor) Hx Pacemaker: No HX Cerebrovascular Accident: No Hx Seizures: No Hx Dementia: No Hx Diabetes: Yes (Metformin) Hx Gastrointestinal Disorders: No Hx Liver Disease: Yes (Hep C) Hx Genitourinary Disorders: No Hx Sexually Transmitted Disorders: No Hx Renal Disease (ESRD): No Hx Thyroid Disease: No Hx Human Immunodeficiency Virus (HIV): No (Negative 2017) Hx Hepatitis C: Yes (NON DETECTABLE- Not on medication) Hx Depression: Yes (on med) Hx Suicide Attempt: No (Denies suiccide attempt and suicidal ideation at this time) Hx Bipolar Disorder: Yes (Klonopin) Hx Schizophrenia: No Other Medical History: Anxiety- Not on medication - Patient Surgical History Past Surgical History: No - PPD History Previous Implant?: Yes Documented Results: Negative w/proof Date: 08/29/17 Results: 0MM PPD to be Administered?: No - Reproductive History Patient is a Female of Child Bearing Age (11 -55 yrs old): No (Male) - Smoking Cessation Smoking history: Current every day smoker Have you smoked in the past 12 months: Yes Aproximately how many cigarettes per day: 10 Cigars Per Day: 0 Hx Chewing Tobacco Use: No Initiated information on smoking cessation: Yes 'Breaking Loose' booklet given: 03/20/18 - Substance & Tx. History Hx Alcohol Use: No Hx Substance Use: Yes Substance Use Type: Heroin Hx Substance Use Treatment: Yes ([facility]) - Substances Abused Heroin Route: Inhalation Frequency: Daily Amount used: 4 bags Age of first use: 41 Date of Last Use: 03/20/18 Family Disease History - Family Disease History Family Disease History: Diabetes: Father () Admission Physical Exam BHS - Vital Signs Vital Signs: Vital Signs - 24 hr 03/20/18 18:38 Temperature 97.9 F Pulse Rate 67 Respiratory 18 Rate Blood Pressure 121/72 - Physical General Appearance: Yes: Moderate Distress, Tremorous, Irritable, Sweating, Anxious HEENTM: Yes: EOMI, Normal ENT Inspection, Normocephalic, Normal Voice, MOUNA Respiratory: Yes: Lungs Clear, Normal Breath Sounds, No Respiratory Distress Neck: Yes: Supple Breast: Yes: Breast Exam Deferred Cardiology: Yes: Regular Rhythm, Regular Rate, S1, S2 Abdominal: Yes: Normal Bowel Sounds Genitourinary: Yes: Within Normal Limits Back: Yes: Normal Inspection Musculoskeletal: Yes: Back pain Extremities: Yes: Normal Inspection Neurological: Yes: Alert, Normal Mood/Affect Integumentary: Yes: Dry Lymphatic: Yes: Within Normal Limits - Diagnostic (1) Anxiety Current Visit: Yes Status: Chronic (2) HLD (hyperlipidemia) Current Visit: Yes Status: Chronic Qualifiers: Hyperlipidemia type: unspecified Qualified Code(s): E78.5 - Hyperlipidemia , unspecified (3) Hepatitis C Current Visit: Yes Status: Chronic Qualifiers: Viral hepatitis chronicity: carrier Qualified Code(s): B18.2 - Chronic viral hepatitis C (4) Hypertension Current Visit: Yes Status: Chronic Qualifiers: Hypertension type: essential hypertension Qualified Code(s): I10 - Essential (primary) hypertension (5) Nicotine dependence Current Visit: Yes Status: Chronic Qualifiers: Nicotine product type: cigarettes Substance use status: uncomplicated Qualified Code(s): F17.210 - Nicotine dependence, cigarettes, uncomplicated (6) Opioid dependence with withdrawal Current Visit: Yes Status: Chronic (7) Type 2 diabetes mellitus Current Visit: Yes Status: Chronic Qualifiers: Diabetes mellitus roasterman insulin use: with group home use Diabetes mellitus complication status: without complication Qualified Code(s): E11.9 - Type 2 diabetes mellitus without complications; Z79.4 - ad terminal makeup operator (current) use of insulin (8) Depression (emotion) Current Visit: Yes Status: Suspected Qualifiers: Depression Type: dysthymia Qualified Code(s): F34.1 - Dysthymic disorder Cleared for Admission BHS - Detox or Rehab [facility] Level of Care: Medically Managed Detox Regimen/Protocol: Methadone [facility] Breath Alcohol Content Breath Alcohol Content: 0 Urine Drug Screen - Results Drug Screen Negative: No Urine Drug Screen Results: OPI-Opiates
[2018-03-20] MEDS ORDERED: MENTHOL/PHENOL 1 EACH UD MM PRN (21:24)
[2018-03-20] MEDS ORDERED: NICOTINE POLACRILEX 2 MG GUM BC PRN (21:24)
[2018-03-20] MEDS ORDERED: ACETAMINOPHEN 325 MG TABLET (FP) PO PRN (21:24)
[2018-03-20] MEDS ORDERED: IBUPROFEN 400 MG TABLET (FP) PO PRN (21:24)
[2018-03-20] MEDS ORDERED: LOPERAMIDE HCL 2 MG CAPSULE PO PRN (21:24)
[2018-03-20] MEDS ORDERED: MAGNESIUM HYDROX 2400MG/30ML ORAL SUSPENSION 30 ML CUP PO PRN (21:24)
[2018-03-20] MEDS ORDERED: P-EPHED 60MG/TRIPROLIDI 2.5MG TABLET PO PRN (21:24)
[2018-03-20] MEDS ORDERED: METHADONE HCL 10 MG TABLET (FOR DETOX USE ONLY) PO ONE ×2 (21:24→23:00)
[2018-03-20] MEDS ORDERED: MAGNESIUM CITRATE 300 ML BOTTLE PO PRN (21:24)
[2018-03-20] MEDS ORDERED: guaiFENesin/D-METHORPHAN HB 10 ML UNIT-DOSE CUPS PO PRN (21:24)
[2018-03-20] MEDS ORDERED: MAG HYDROX/AL HYDROX/SIMETH 30 ML UNIT-DOSE CUP PO PRN (21:24)
[2018-03-20] MEDS ORDERED: metFORMIN HCL 500 MG TABLET (FP) PO SCH (22:00)
[2018-03-20] MEDS ORDERED: MELATONIN 5 MG TABLETS PO PRN (22:00)
[2018-03-20] MEDS: THIAMINE HCL 100 MG TABLET (FP) PO SCH (23:25)
[2018-03-20] MEDS: diazePAM 5 MG TABLET PO PRN (23:25)
[2018-03-20] MEDS: ATORVASTATIN CA 40 MG TABLET (FP) PO SCH (23:25)
[2018-03-21] MEDS: diazePAM 5 MG TABLET PO PRN ×4 (05:17→22:18)
[2018-03-21] MEDS: metFORMIN HCL 500 MG TABLET (FP) PO SCH ×2 (06:14→17:03)
[2018-03-21 08:20] LABS: URINE APPEARANCE TURBID; URINE BILIRUBIN NEGATIVE (<2.0 mg/dL); URINE COLOR YELLOW; URINE GLUCOSE (UA) NEGATIVE (NEGATIVE); URINE KETONE NEGATIVE (NEGATIVE); URINE LEUK ESTERASE NEGATIVE (NEGATIVE); URINE NITRITE NEGATIVE (NEGATIVE); URINE PROTEIN NEGATIVE (NEGATIVE); URINE UROBILINOGEN NEGATIVE mg/dL (0.2-1.0)
--- NOTE | 2018-03-21 09:47 | EKG ---
Test Reason : Blood Pressure : / mmHG Vent. Rate : 058 BPM Atrial Rate : 058 BPM P-R Int : 174 ms QRS Dur : 084 ms QT Int : 408 ms P-R-T Axes : 042 078 066 degrees QTc Int : 400 ms SINUS BRADYCARDIA WITH SINUS ARRHYTHMIA OTHERWISE NORMAL ECG WHEN COMPARED WITH ECG OF 25-DEC-2017 00:53, NO SIGNIFICANT CHANGE WAS FOUND Confirmed by EDDIE VARGAS MD ([id number]) on 03/21/2018 9:47:21 AM Referred By: Confirmed By:EDDIE VARGSA MD
[2018-03-21 09:57] LABS: HEMATOCRIT 34.3 % (35.4-49); HEMOGLOBIN 11.3 GM/dL (11.7-16.9); MCH 28.2 pg (25.7-33.7); MCHC 32.9 g/dl (32.0-35.9); MEAN CELL VOLUME 85.8 fl (80-96); MEAN PLT VOLUME 8.3 fl (7.5-11.1); PLATELET COUNT 217 K/MM3 (134-434); RDW 13.8 % (11.9-15.9); WHITE BLOOD COUNT 4.4 K/mm3 (4.0-10.0)
[2018-03-21] MEDS ORDERED: METHADONE HCL 10 MG TABLET (FOR DETOX USE ONLY) PO ONE (10:00)
[2018-03-21 10:03] LABS: CHLORIDE 105 mmol/L (98-107); POTASSIUM 4.2 mmol/L (3.5-5.1); SODIUM 139 mmol/L (136-145)
[2018-03-21] MEDS: PRENATAL VITAMINS W/ FOLIC ACID TABLET (FP) PO SCH (10:12)
[2018-03-21] MEDS: NICOTINE 14 MG/24 HOURS TOPICAL PATCH TD SCH (10:12)
[2018-03-21] MEDS: LISINOPRIL 20 MG TABLET (FP) PO SCH (10:13)
[2018-03-21 10:59] LABS: ALBUMIN 3.3 g/dl (3.4-5.0); ALK PHOS 99 U/L (45-117); ANION GAP 8 (8-16); BILIRUBIN,TOTAL 0.8 mg/dL (0.2-1.0); BLOOD UREA NITROGEN 12 mg/dL (7-18); CALCIUM 8.9 mg/dL (8.5-10.1); CO2 26 mmol/L (21-32); CREATININE 0.6 mg/dL (0.7-1.3); GLUCOSE,RANDOM 92 mg/dL (74-106); SGOT/AST 17 U/L (15-37); SGPT/ALT 28 U/L (12-78); TOT PROT 7.2 g/dl (6.4-8.2)
--- NOTE | 2018-03-21 14:00 | PN ---
BHS COWS - Scale Resting Pulse: 0= [place] 80 or Below Sweatin= Chills/Flushing Restless Observation: 1= Difficult to Sit Still Pupil Size: 0= Normal to Room Light Bone or Joint Aches: 2= Severe Diffuse Aches Runny Nose/ Eye Tearin= None GI Upset > 30mins: 1= Stomach Cramp Tremor Observation of Outstretched Hands: 2= Slight Tremor Visible Yawning Observation: 2= >3x During Session Anxiety or Irritability: 2=Irritable/Anxious Goose Flesh Skin: 3=Piloerection COWS Score: 14 BHS Progress Note (SOAP) Subjective: Fatigue, Interrupted Sleep, Stomach Cramping, Tremors. Objective: PATIENT A & O X 3, OBSERVED AMBULATING ON UNIT. NO ACUTE DISTRESS. 03/21/18 14:01 Vital Signs Temperature 97.4 F L 03/21/18 09:39 Pulse Rate 70 03/21/18 09:39 Respiratory Rate 18 03/21/18 09:39 Blood Pressure 150/88 03/21/18 09:39 O2 Sat by Pulse Oximetry (%) Laboratory Tests 03/20/18 03/20/18 03/21/18 23:00 23:24 05:15 WBC RBC Hgb Hct MCV MCH MCHC RDW Plt Count MPV Sodium Potassium Chloride Carbon Dioxide Anion Gap BUN Creatinine Creat Clearance w eGFR POC Glucometer 147 140 Random Glucose Calcium Total Bilirubin AST ALT Alkaline Phosphatase Total Protein Albumin Urine Color Yellow Urine Appearance Turbid Urine pH 5.0 Ur Specific [place] 1.025 Urine Protein Negative Urine Glucose (UA) Negative Urine Ketones Negative Urine Blood Negative Urine Nitrite Negative Urine Bilirubin Negative Urine Urobilinogen Negative Ur Leukocyte Esterase Negative RPR Titer 03/21/18 03/21/18 03/21/18 08:00 08:00 08:00 WBC 4.4 RBC 4.00 Hgb 11.3 L Hct 34.3 L MCV 85.8 MCH 28.2 MCHC 32.9 RDW 13.8 Plt Count 217 MPV 8.3 Sodium 139 Potassium 4.2 Chloride 105 Carbon Dioxide 26 Anion Gap 8 BUN 12 Creatinine 0.6 L Creat Clearance w eGFR > 60 POC Glucometer Random Glucose 92 D Calcium 8.9 Total Bilirubin 0.8 D AST 17 ALT 28 Alkaline Phosphatase 99 D Total Protein 7.2 Albumin 3.3 L Urine Color Urine Appearance Urine pH Ur Specific [place] Urine Protein Urine Glucose (UA) Urine Ketones Urine Blood Urine Nitrite Urine Bilirubin Urine Urobilinogen Ur Leukocyte Esterase RPR Titer Nonreactive LABS NOTED. Assessment: 03/21/18 14:02 WITHDRAWAL SYMPTOMS. Plan: CONTINUE DETOX. INCREASE DAILY PO FLUID INTAKE.
--- NOTE | 2018-03-21 17:14 | CONSULT ---
[facility] Psychiatric Consult - Data Date of interview: 03/21/18 Admission source: [facility] Identifying data: Readmission to [facility] for this 57 y/o male seeking detox treatment on for heroin dependence.Patient is single,a father of one,domiciled,unemployed and supported on [facility] benefits. Substance Abuse History: Confirmed by patient in this interview.Smoking history : Current every day smoker. Have you smoked in the past 12 months: Yes. Aproximately how many cigarettes per day: 10. Cigars Per Day: 0. Hx Chewing Tobacco Use: No. Initiated information on smoking cessation: Yes. 'Breaking Loose' booklet given: 03/20/18. - Substance & Tx. History. Hx Alcohol Use: No. Hx Substance Use: Yes. Substance Use Type: Heroin. Hx Substance Use Treatment: Yes ([facility]). - Substances Abused. Heroin. Route: Inhalation. Frequency: Daily. Amount used: 4 bags. Age of first use: 41. Date of Last Use : 03/20/18 Medical History: Medical co-morbidities : hypercholesterolemia,diabetes mellitus ,hepatitis C and hypertension. Psychiatric History: Patient reports a personal history of multiple psychiatric hospitalizations ([facility]Last hospitalized 10 years ago,as per own account.Mr Dionna reports current [facility] psychiatric care at [facility] in the [place].Diagnosed with Bipolar Disorder.Prescribed klonopin and seroquel 200 mg/hs.Patient denies history of suicide attempts. Physical/Sexual Abuse/Trauma History: No reported history of abuse. Additional Comment: Urine Drug Screen Results: OPI-Opiates.Noted. Mental Status Exam - Mental Status Exam Alert and Oriented to: Time, Place, Person Cognitive Function: Good Patient Appearance: Unkempt, Disheveled Mood: Withdrawn, Anxious (medication-seeking) Affect: Mood Congruent Patient Behavior: Fatigued, Cooperative Speech Pattern: Clear Voice Loudness: Normal Thought Process: Goal Oriented Thought Disorder: Not Present Hallucinations: Denies Suicidal Ideation: Denies Homicidal Ideation: Denies Insight/Judgement: Poor Sleep: Poorly, Difficulty falling asleep Appetite: Fair Muscle strength/Tone: Normal Gait/Station: Normal Psychiatric Findings - Problem List ([place] 1, 2,3) (1) Opioid dependence with withdrawal Current Visit: Yes Status: Acute (2) Nicotine dependence Current Visit: Yes Status: Acute Qualifiers: Nicotine product type: cigarettes Substance use status: uncomplicated Qualified Code(s): F17.210 - Nicotine dependence, cigarettes, uncomplicated (3) Insomnia Current Visit: Yes Status: Acute Qualifiers: Insomnia type: unspecified Qualified Code(s): G47.00 - Insomnia, unspecified (4) Substance induced mood disorder Current Visit: Yes Status: Acute (5) Bipolar disorder Current Visit: Yes Status: Chronic Comment: As per self-report. - Initial Treatment Plan Initial Treatment Plan: Psychoeducation.Sleep hygiene.Detoxification in progress.Seroquel 100 mg po hs (reduced as caution against oversedation).To be titrated to 200 mg/hs if well tolerated.Side effects/benefits discussed with the patient.Mr Villareal agrees to this careplan.Observation.
[2018-03-21] MEDS: THIAMINE HCL 100 MG TABLET (FP) PO SCH (22:16)
[2018-03-21] MEDS: QUEtiapine FUMARATE 100 MG TABLET (FP) PO SCH (22:18)
[2018-03-21] MEDS: ATORVASTATIN CA 40 MG TABLET (FP) PO SCH (22:18)
[2018-03-22] MEDS: diazePAM 5 MG TABLET PO PRN ×4 (05:42→22:11)
[2018-03-22] MEDS: metFORMIN HCL 500 MG TABLET (FP) PO SCH ×2 (07:54→17:13)
[2018-03-22] MEDS ORDERED: METHADONE HCL 5 MG TABLET (FOR DETOX USE ONLY) PO ONE (10:00)
[2018-03-22] MEDS: PRENATAL VITAMINS W/ FOLIC ACID TABLET (FP) PO SCH (10:17)
[2018-03-22] MEDS: NICOTINE 14 MG/24 HOURS TOPICAL PATCH TD SCH (10:17)
[2018-03-22] MEDS: LISINOPRIL 20 MG TABLET (FP) PO SCH (10:21)
--- NOTE | 2018-03-22 16:06 | PN ---
BHS COWS - Scale Resting Pulse: 0= [place] 80 or Below Sweatin= Chills/Flushing Restless Observation: 0= Sits Still Pupil Size: 0= Normal to Room Light Bone or Joint Aches: 2= Severe Diffuse Aches Runny Nose/ Eye Tearin= Runny Nose/Eyes GI Upset > 30mins: 0= None Tremor Observation of Outstretched Hands: 2= Slight Tremor Visible Yawning Observation: 2= >3x During Session Anxiety or Irritability: 2=Irritable/Anxious Goose Flesh Skin: 0=Smooth Skin COWS Score: 11 BHS Progress Note (SOAP) Subjective: Fatigue, Anxious, Tremors, Body Aches. Objective: PATIENT A & O X 3, OBSERVED AMBULATING ON UNIT. NO ACUTE DISTRESS. 03/22/18 16:09 Vital Signs Temperature 98.6 F 03/22/18 13:25 Pulse Rate 71 03/22/18 13:25 Respiratory Rate 18 03/22/18 13:25 Blood Pressure 104/66 03/22/18 13:25 O2 Sat by Pulse Oximetry (%) Laboratory Tests 03/20/18 03/20/18 03/21/18 23:00 23:24 05:15 WBC RBC Hgb Hct MCV MCH MCHC RDW Plt Count MPV Sodium Potassium Chloride Carbon Dioxide Anion Gap BUN Creatinine Creat Clearance w eGFR POC Glucometer 147 140 Random Glucose Calcium Total Bilirubin AST ALT Alkaline Phosphatase Total Protein Albumin Urine Color Yellow Urine Appearance Turbid Urine pH 5.0 Ur Specific [place] 1.025 Urine Protein Negative Urine Glucose (UA) Negative Urine Ketones Negative Urine Blood Negative Urine Nitrite Negative Urine Bilirubin Negative Urine Urobilinogen Negative Ur Leukocyte Esterase Negative RPR Titer 03/21/18 03/21/18 03/21/18 08:00 08:00 08:00 WBC 4.4 RBC 4.00 Hgb 11.3 L Hct 34.3 L MCV 85.8 MCH 28.2 MCHC 32.9 RDW 13.8 Plt Count 217 MPV 8.3 Sodium 139 Potassium 4.2 Chloride 105 Carbon Dioxide 26 Anion Gap 8 BUN 12 Creatinine 0.6 L Creat Clearance w eGFR > 60 POC Glucometer Random Glucose 92 D Calcium 8.9 Total Bilirubin 0.8 D AST 17 ALT 28 Alkaline Phosphatase 99 D Total Protein 7.2 Albumin 3.3 L Urine Color Urine Appearance Urine pH Ur Specific [place] Urine Protein Urine Glucose (UA) Urine Ketones Urine Blood Urine Nitrite Urine Bilirubin Urine Urobilinogen Ur Leukocyte Esterase RPR Titer Nonreactive 03/21/18 03/22/18 16:26 05:41 WBC RBC Hgb Hct MCV MCH MCHC RDW Plt Count MPV Sodium Potassium Chloride Carbon Dioxide Anion Gap BUN Creatinine Creat Clearance w eGFR POC Glucometer 181 143 Random Glucose Calcium Total Bilirubin AST ALT Alkaline Phosphatase Total Protein Albumin Urine Color Urine Appearance Urine pH Ur Specific [place] Urine Protein Urine Glucose (UA) Urine Ketones Urine Blood Urine Nitrite Urine Bilirubin Urine Urobilinogen Ur Leukocyte Esterase RPR Titer LABS NOTED. Assessment: 03/22/18 16:09 WITHDRAWAL SYMPTOMS. Plan: CONTINUE DETOX.
[2018-03-22] MEDS: QUEtiapine FUMARATE 100 MG TABLET (FP) PO SCH (22:11)
[2018-03-22] MEDS: THIAMINE HCL 100 MG TABLET (FP) PO SCH (22:11)
[2018-03-22] MEDS: ATORVASTATIN CA 40 MG TABLET (FP) PO SCH (22:11)
[2018-03-23] MEDS: diazePAM 5 MG TABLET PO PRN ×3 (06:15→18:33)
[2018-03-23] MEDS: metFORMIN HCL 500 MG TABLET (FP) PO SCH ×2 (06:51→17:21)
--- NOTE | 2018-03-23 08:59 | PN ---
[facility] Progress Note Note: Patient reports he needs to leave tomorrow, he has housing court for [address] and is afraid of loosing his apartment. Patient currently stable. c/o of mild difficulty sleeping. Schedule methadone dose schedule for Saturday 10 mg dose adjusted to 5 mg. Patient to be d/c 03/24/18. Vital Signs Temperature 97.5 F L 03/23/18 06:23 Pulse Rate 64 03/23/18 06:23 Respiratory Rate 18 03/23/18 06:30 Blood Pressure 118/65 03/23/18 06:23 O2 Sat by Pulse Oximetry (%) Laboratory Last Values WBC 4.4 K/mm3 (4.0-10.0) 03/21/18 08:00 RBC 4.00 M/mm3 (4.00-5.60) 03/21/18 08:00 Hgb 11.3 GM/dL (11.7-16.9) L 03/21/18 08:00 Hct 34.3 % (35.4-49) L 03/21/18 08:00 MCV 85.8 fl (80-96) 03/21/18 08:00 MCH 28.2 pg (25.7-33.7) 03/21/18 08:00 MCHC 32.9 g/dl (32.0-35.9) 03/21/18 08:00 RDW 13.8 % (11.9-15.9) 03/21/18 08:00 Plt Count 217 K/MM3 (134-434) 03/21/18 08:00 MPV 8.3 fl (7.5-11.1) 03/21/18 08:00 Sodium 139 mmol/L (136-145) 03/21/18 08:00 Potassium 4.2 mmol/L (3.5-5.1) 03/21/18 08:00 Chloride 105 mmol/L (98-107) 03/21/18 08:00 Carbon Dioxide 26 mmol/L (21-32) 03/21/18 08:00 Anion Gap 8 (8-16) 03/21/18 08:00 BUN 12 mg/dL (7-18) 03/21/18 08:00 Creatinine 0.6 mg/dL (0.7-1.3) L 03/21/18 08:00 Creat Clearance w eGFR > 60 (>60) 03/21/18 08:00 POC Glucometer 258 UNITS (80-120) 03/23/18 06:14 Random Glucose 92 mg/dL (74-106) D 03/21/18 08:00 Calcium 8.9 mg/dL (8.5-10.1) 03/21/18 08:00 Total Bilirubin 0.8 mg/dL (0.2-1.0) D 03/21/18 08:00 AST 17 U/L (15-37) 03/21/18 08:00 ALT 28 U/L (12-78) 03/21/18 08:00 Alkaline Phosphatase 99 U/L (45-117) D 03/21/18 08:00 Total Protein 7.2 g/dl (6.4-8.2) 03/21/18 08:00 Albumin 3.3 g/dl (3.4-5.0) L 03/21/18 08:00 Urine Color Yellow 03/20/18 23:00 Urine Appearance Turbid 03/20/18 23:00 Urine pH 5.0 (5.0-8.0) 03/20/18 23:00 Ur Specific [place] 1.025 (1.001-1.035) 03/20/18 23:00 Urine Protein Negative (NEGATIVE) 03/20/18 23:00 Urine Glucose (UA) Negative (NEGATIVE) 03/20/18 23:00 Urine Ketones Negative (NEGATIVE) 03/20/18 23:00 Urine Blood Negative (NEGATIVE) 03/20/18 23:00 Urine Nitrite Negative (NEGATIVE) 03/20/18 23:00 Urine Bilirubin Negative (<2.0 mg/dL) 03/20/18 23:00 Urine Urobilinogen Negative mg/dL (0.2-1.0) 03/20/18 23:00 Ur Leukocyte Esterase Negative (NEGATIVE) 03/20/18 23:00 RPR Titer Nonreactive (NONREACTIVE) 03/21/18 08:00 AOx3 in no apparent distress no adventitious breath sounds ambulating in the unit Plan: continue to monitor continue detox
[2018-03-23] MEDS ORDERED: METHADONE HCL 5 MG TABLET (FOR DETOX USE ONLY) PO ONE (10:00)
[2018-03-23] MEDS: LISINOPRIL 20 MG TABLET (FP) PO SCH (10:18)
[2018-03-23] MEDS: NICOTINE 14 MG/24 HOURS TOPICAL PATCH TD SCH (10:18)
[2018-03-23] MEDS: PRENATAL VITAMINS W/ FOLIC ACID TABLET (FP) PO SCH (10:18)
--- NOTE | 2018-03-23 17:01 | PN ---
S Progress Note Note: Pt's FS 308mg/dl at this time. No symptoms/signs of hyperglycemia. Pt endorses having been drinking juices. Pt educated to continue with low sugar diet and drink lots of water. FSG to be rechecked.
--- NOTE | 2018-03-23 18:38 | PN ---
[facility] Progress Note Note: Psychiatrist organizational psychologist note: Called by nursing staff on behalf of patient reporting difficulty to sleep despite getting Seroquel 100 mg po HS. Patient was seen on 03/21/[address] Bear who ordered a reduced dose of Seroquel(100 mg)for patient for fear of sedation. As per Dr Bear dose should be adjusted to his regular dose of 200 mg if reduced dose is well tolerated. According to nursing staff, patient is very alert, not sedated and requests that Seroquel dose be inceased to his regular dose of 200 mg po HS
[2018-03-23] MEDS ORDERED: QUEtiapine FUMARATE 200 MG TABLET PO SCH (22:00)
[2018-03-23] MEDS: ATORVASTATIN CA 40 MG TABLET (FP) PO SCH (22:08)
[2018-03-23] MEDS: THIAMINE HCL 100 MG TABLET (FP) PO SCH (22:08)
[2018-03-24] MEDS ORDERED: METHADONE HCL 5 MG TABLET (FOR DETOX USE ONLY) PO ONE (06:00)
[2018-03-24] MEDS: metFORMIN HCL 500 MG TABLET (FP) PO SCH (08:11)
[2018-03-24 08:58] VITALS: BP 136/82; PULSE 88; TEMP 98.1
--- NOTE | 2018-03-24 09:43 | PN ---
[facility] Progress Note (SOAP) Subjective: Denies any complaint Feels good Objective: 03/24/18 09:40 A & o X 3 Gait steady, no acute distress Vital Signs Temperature 98.1 F 03/24/18 08:57 Pulse Rate 88 03/24/18 08:57 Respiratory Rate 20 03/24/18 08:57 Blood Pressure 136/82 03/24/18 08:57 O2 Sat by Pulse Oximetry (%) Laboratory Last Values WBC 4.4 K/mm3 (4.0-10.0) 03/21/18 08:00 RBC 4.00 M/mm3 (4.00-5.60) 03/21/18 08:00 Hgb 11.3 GM/dL (11.7-16.9) L 03/21/18 08:00 Hct 34.3 % (35.4-49) L 03/21/18 08:00 MCV 85.8 fl (80-96) 03/21/18 08:00 MCH 28.2 pg (25.7-33.7) 03/21/18 08:00 MCHC 32.9 g/dl (32.0-35.9) 03/21/18 08:00 RDW 13.8 % (11.9-15.9) 03/21/18 08:00 Plt Count 217 K/MM3 (134-434) 03/21/18 08:00 MPV 8.3 fl (7.5-11.1) 03/21/18 08:00 Sodium 139 mmol/L (136-145) 03/21/18 08:00 Potassium 4.2 mmol/L (3.5-5.1) 03/21/18 08:00 Chloride 105 mmol/L (98-107) 03/21/18 08:00 Carbon Dioxide 26 mmol/L (21-32) 03/21/18 08:00 Anion Gap 8 (8-16) 03/21/18 08:00 BUN 12 mg/dL (7-18) 03/21/18 08:00 Creatinine 0.6 mg/dL (0.7-1.3) L 03/21/18 08:00 Creat Clearance w eGFR > 60 (>60) 03/21/18 08:00 POC Glucometer 277 UNITS (80-120) 03/24/18 05:25 Random Glucose 92 mg/dL (74-106) D 03/21/18 08:00 Calcium 8.9 mg/dL (8.5-10.1) 03/21/18 08:00 Total Bilirubin 0.8 mg/dL (0.2-1.0) D 03/21/18 08:00 AST 17 U/L (15-37) 03/21/18 08:00 ALT 28 U/L (12-78) 03/21/18 08:00 Alkaline Phosphatase 99 U/L (45-117) D 03/21/18 08:00 Total Protein 7.2 g/dl (6.4-8.2) 03/21/18 08:00 Albumin 3.3 g/dl (3.4-5.0) L 03/21/18 08:00 Urine Color Yellow 03/20/18 23:00 Urine Appearance Turbid 03/20/18 23:00 Urine pH 5.0 (5.0-8.0) 03/20/18 23:00 Ur Specific [place] 1.025 (1.001-1.035) 03/20/18 23:00 Urine Protein Negative (NEGATIVE) 03/20/18 23:00 Urine Glucose (UA) Negative (NEGATIVE) 03/20/18 23:00 Urine Ketones Negative (NEGATIVE) 03/20/18 23:00 Urine Blood Negative (NEGATIVE) 03/20/18 23:00 Urine Nitrite Negative (NEGATIVE) 03/20/18 23:00 Urine Bilirubin Negative (<2.0 mg/dL) 03/20/18 23:00 Urine Urobilinogen Negative mg/dL (0.2-1.0) 03/20/18 23:00 Ur Leukocyte Esterase Negative (NEGATIVE) 03/20/18 23:00 RPR Titer Nonreactive (NONREACTIVE) 03/21/18 08:00 POC - 277units; random glucose - 92mg/dl Assessment: 03/24/18 09:42 detox successfully completed Plan: for d/c
--- NOTE | 2018-03-24 09:48 | DS ---
[facility] Detox Discharge Summary Admission Date: 03/20/18 Discharge Date: 03/24/18 - History Additional Comments: pt being discharged home Will do aftercare as an outpatient at [facility] f/u with his PMD Dr Multani @ [address] States he has meds at home and does not need refill for the HTN, DM, Chol Pertinent Past History: HTN DM Chol - Physical Exam Results Vital Signs: Vital Signs Temperature 98.1 F 03/24/18 08:57 Pulse Rate 88 03/24/18 08:57 Respiratory Rate 20 03/24/18 08:57 Blood Pressure 136/82 03/24/18 08:57 O2 Sat by Pulse Oximetry (%) Pertinent Admission Physical Exam Findings: withdrawal symptoms - Medication Discharge Medications: Ambulatory Orders Insulin Glargine,Hum.rec.anlog [Lantus (10mL VIAL) -] 16 units SQ DAILY metFORMIN HCL [Glucophage -] 500 mg PO BID 08/31/16 Atorvastatin Ca [Lipitor] 40 mg PO HS 12/25/17 Ciprofloxacin 0.3% Eye Drops [Ciloxan 0.3% Eye Drops --] 1 drop OU BID 12/25/17 Lisinopril 1 tab PO DAILY 12/25/17 Quetiapine Fumarate [Seroquel -] 200 mg PO HS #30 tab 12/25/17 - Diagnosis (1) Opioid dependence with withdrawal Current Visit: Yes Status: Acute (2) Nicotine dependence Current Visit: Yes Status: Acute Qualifiers: Nicotine product type: cigarettes Substance use status: uncomplicated Qualified Code(s): F17.210 - Nicotine dependence, cigarettes, uncomplicated (3) Substance induced mood disorder Current Visit: Yes Status: Acute (4) Anxiety Current Visit: Yes Status: Chronic (5) HLD (hyperlipidemia) Current Visit: Yes Status: Chronic Qualifiers: Hyperlipidemia type: unspecified Qualified Code(s): E78.5 - Hyperlipidemia , unspecified (6) Hepatitis C Current Visit: Yes Status: Chronic Qualifiers: Viral hepatitis chronicity: carrier Qualified Code(s): B18.2 - Chronic viral hepatitis C (7) Hypertension Current Visit: Yes Status: Chronic Qualifiers: Hypertension type: essential hypertension Qualified Code(s): I10 - Essential (primary) hypertension (8) Type 2 diabetes mellitus Current Visit: Yes Status: Chronic Qualifiers: Diabetes mellitus manager long term care insulin use: with intermediate use Diabetes mellitus complication status: without complication Qualified Code(s): E11.9 - Type 2 diabetes mellitus without complications; Z79.4 - vermin exterminator (current) use of insulin (9) Insomnia Current Visit: Yes Status: Acute Qualifiers: Insomnia type: unspecified Qualified Code(s): G47.00 - Insomnia, unspecified - AMA Did Patient Leave Against Medical Advice: No
[2018-03-24] MEDS ORDERED: METHADONE HCL 10 MG TABLET (FOR DETOX USE ONLY) PO ONE (10:00)
[2018-03-25] MEDS ORDERED: METHADONE HCL 5 MG TABLET (FOR DETOX USE ONLY) PO ONE (06:00)
== END 2018-03-24 10:17 | disposition home or self-care (01) | DRG 897 ==
LOC: YASAS 17:03 → Y3N 20:44
PROVIDERS: ADMIT Family Medicine Addiction Medicine; ATTEND Family Medicine Addiction Medicine
PROC: HZ2ZZZZ Detoxification Services for Substance Abuse Treatment (ICD-10-PCS; principal; 2018-03-20)
DX: F11.23 Opioid dependence with withdrawal (principal); F17.210 Nicotine dependence, cigarettes, uncomplicated; F19.24 Other psychoactive substance dependence with psychoactive substance-induced mood disorder; F41.9 Anxiety disorder, unspecified; F31.9 Bipolar disorder, unspecified; I10 Essential (primary) hypertension; E78.5 Hyperlipidemia, unspecified; B18.2 Chronic viral hepatitis C; E11.9 Type 2 diabetes mellitus without complications; G47.00 Insomnia, unspecified; Z79.4 Long term (current) use of insulin; Z79.84 Long term (current) use of oral hypoglycemic drugs
CPT/HCPCS: 36415; 80053; 81003; 82962; 85027; 86593; 93005; 93010

== ENCOUNTER 2018-07-11 12:11 | Inpatient (IN) | payer OTHER ==
[2018-07-11 12:56] VITALS: BMI 24.2
--- NOTE | 2018-07-11 21:17 | HP ---
COWS - Scale Resting Pulse: 0= [place] 80 or Below Sweatin=Flushed/Facial Moisture Restless Observation: 1= Difficult to Sit Still Pupil Size: 0= Normal to Room Light Bone or Joint Aches: 0= None Runny Nose/ Eye Tearin= Runny Nose/Eyes GI Upset > 30mins: 0= None Tremor Observation: 0= None Yawning Observation: 1= 1-2x During Session Anxiety or Irritability: 1=Feels Anxious/Irritable Goose Flesh Skin: 0=Smooth Skin COWS Score: 7 Admission ROS S - HPI Chief Complaint: SEEKING DETOX FOR WORSENING WITHDRAWAL SX'S FROM HEROIN Allergies/Adverse Reactions: Allergies Allergy/AdvReac Type Severity Reaction Status Date / Time No Known Allergies Allergy Verified 07/11/18 17:12 History of Present Illness: 58 Y.O. MALE WITH LONG HX/O OPIOID DEPENDENCE HERE FOR DETOX. CLIENT IS KNOWN TO THIS PROGRAM. LAST HERE 03/2018. DENIES ANY INPATIENT TXMENT SINCE. HE PRESENTS WITH C/O WORSENING WITHDRAWAL SX'S PRESENTLY COWS 7. HE HAS HX/O DM, HTN, HLD, AND BIPOLAR, DEPRESSION, INSOMNIA. REPORTS LONGEST CLEAN TIME 5 YEARS AGO SELF SUSTAINED. DNEIS PAST/PRESENT SI/HI/ATTEMPTS, AVH, DRUG OVERDOSE , SEIZURES. DENIES LEGALS Exam Limitations: No Limitations - Ebola screening Have you traveled outside of the country in the last 21 days: No Have you had contact with anyone from an Ebola affected area: No Have you been sick,other than usual withdrawal symptoms: No Do you have a fever: No - Review of Systems Constitutional: No Symptoms Reported, Chills, Changes in sleep EENT: reports: Other (WATERY EYES) Respiratory: reports: Cough (X 2 WEEKS) Cardiac: reports: No Symptoms Reported GI: reports: No Symptoms Reported : reports: No Symptoms Reported Musculoskeletal: reports: No Symptoms Reported Integumentary: reports: Other (RESOLVING ABCESS TO RIGHT FOREARM) Neuro: reports: No Symptoms reported Endocrine: reports: Other (HX/O DM) Hematology: reports: No Symptoms Reported Psychiatric: reports: other ([place]) Other Systems: Reviewed and Negative Patient History - Patient Medical History Hx Anemia: No Hx Asthma: No Hx Chronic Obstructive Pulmonary Disease (COPD): No Hx Cancer: No Hx Cardiac Disorders: No Hx Congestive Heart Failure: No Hx Hypertension: Yes (lisinopril) Hx Hypercholesterolemia: Yes (lipitor) Hx Pacemaker: No HX Cerebrovascular Accident: No Hx Seizures: No Hx Dementia: No Hx Diabetes: Yes (Metformin) Hx Gastrointestinal Disorders: No Hx Liver Disease: Yes (Hep C) Hx Genitourinary Disorders: No Hx Sexually Transmitted Disorders: No Hx Renal Disease (ESRD): No Hx Thyroid Disease: No Hx Human Immunodeficiency Virus (HIV): No Hx Hepatitis C: Yes Hx Depression: Yes Hx Suicide Attempt: No Hx Bipolar Disorder: Yes Hx Schizophrenia: No Other Medical History: DENIES - Patient Surgical History Past Surgical History: No Hx Neurologic Surgery: No Hx Cataract Extraction: No Hx Cardiac Surgery: No Hx Lung Surgery: No Hx Breast Surgery: No Hx Breast Biopsy: No Hx Abdominal Surgery: No Hx Appendectomy: No Hx Cholecystectomy: No Hx Genitourinary Surgery: No Hx Section: No Hx Orthopedic Surgery: No Anesthesia Reaction: No - PPD History Previous Implant?: Yes Documented Results: Negative w/proof Implanted On Prior [facility] Admission?: Yes Date: 08/29/17 Results: NEGATIVE PPD to be Administered?: No - Smoking Cessation Smoking history: Current every day smoker Have you smoked in the past 12 months: Yes Aproximately how many cigarettes per day: 8 Cigars Per Day: 0 Hx Chewing Tobacco Use: No Initiated information on smoking cessation: Yes 'Breaking Loose' booklet given: 07/11/18 - Substance & Tx. History Hx Alcohol Use: No Hx Substance Use: Yes Substance Use Type: Heroin Hx Substance Use Treatment: Yes ([facility]) - Substances Abused Heroin Route: Injection Frequency: Daily Amount used: 5 BAGS DAILY Age of first use: 42 Date of Last Use: 07/10/18 Family Disease History - Family Disease History Family Disease History: Diabetes: Father () Admission Physical Exam S - Vital Signs Vital Signs: Vital Signs - 24 hr 07/11/18 12:51 Temperature 97.4 F L Pulse Rate 73 Respiratory 18 Rate Blood Pressure 123/79 - Physical General Appearance: Yes: Appropriately Dressed, Other (WATERY EYES, PERIORBITAL HYPOPIMENTATION AN THICKENING OF THE SKIN) HEENTM: Yes: EOMI, Normocephalic, Normal Voice, MOUNA, Pharynx Normal, Nasal Congestion, Other (MISSING TEETH POOR DENTITION) Respiratory: Yes: Lungs Clear, Normal Breath Sounds, No Respiratory Distress, No Accessory Muscle Use, Other (COUGH) Neck: Yes: No masses,lesions,Nodules, Supple, Trachea in good position Breast: Yes: Breast Exam Deferred Cardiology: Yes: Regular Rhythm, Regular Rate, S1, S2 Abdominal: Yes: Normal Bowel Sounds, Non Tender, Soft, Protuberent Genitourinary: Yes: Other (DENIES ANY C/O) Back: Yes: Normal Inspection Musculoskeletal: Yes: full range of Motion, Gait Steady Extremities: Yes: Normal Capillary Refill, Normal Range of Motion, Non-Tender Neurological: Yes: Fully Oriented, Alert, Motor Strength 5/5, Normal Mood/Affect Integumentary: Yes: Cold, Track [place], Other (RESOLVING ABCESS NOTED TO R FOREARM) Lymphatic: Yes: Within Normal Limits - Diagnostic (1) Abscess of right forearm Current Visit: Yes Status: Chronic Comment: RESOLVING PRESENT OVER 2 WEEKS (2) Drug-induced mood disorder Current Visit: Yes Status: Chronic (3) Insomnia Current Visit: Yes Status: Chronic Qualifiers: Insomnia type: drug-induced Qualified Code(s): F19.982 - Other psychoactive substance use, unspecified with psychoactive substance-induced sleep disorder (4) Nicotine dependence Current Visit: Yes Status: Chronic Qualifiers: Nicotine product type: cigarettes Substance use status: uncomplicated Qualified Code(s): F17.210 - Nicotine dependence, cigarettes, uncomplicated (5) Opioid dependence with withdrawal Current Visit: Yes Status: Acute (6) Bipolar disorder Current Visit: Yes Status: Chronic Comment: As per self-report. (7) Dry eye Current Visit: Yes Status: Chronic (8) HLD (hyperlipidemia) Current Visit: Yes Status: Chronic Qualifiers: Hyperlipidemia type: unspecified Qualified Code(s): E78.5 - Hyperlipidemia , unspecified (9) Hypertension Current Visit: Yes Status: Chronic Qualifiers: Hypertension type: essential hypertension Qualified Code(s): I10 - Essential (primary) hypertension (10) Type 2 diabetes mellitus Current Visit: Yes Status: Chronic Qualifiers: Diabetes mellitus residential insulin use: with residential use Diabetes mellitus complication status: without complication Qualified Code(s): E11.9 - Type 2 diabetes mellitus without complications; Z79.4 - senior living (current) use of insulin (11) Depression (emotion) Current Visit: Yes Status: Suspected Qualifiers: Depression Type: dysthymia Qualified Code(s): F34.1 - Dysthymic disorder Cleared for Admission [facility] - Detox or Rehab [facility] Level of Care: Medically Managed Detox Regimen/Protocol: Methadone Claeared for Rehab Admission: No [facility] Breath Alcohol Content Breath Alcohol Content: 0 Urine Drug Screen - Results Drug Screen Negative: No Urine Drug Screen Results: OPI-Opiates, BAR-Barbiturates
[2018-07-11] MEDS ORDERED: MAGNESIUM CITRATE 300 ML BOTTLE PO PRN (21:34)
[2018-07-11] MEDS ORDERED: IBUPROFEN 400 MG TABLET (FP) PO PRN (21:34)
[2018-07-11] MEDS ORDERED: METHADONE HCL 10 MG TABLET (FOR DETOX USE ONLY) PO ONE ×2 (21:34→23:00)
[2018-07-11] MEDS ORDERED: MAGNESIUM HYDROX 2400MG/30ML ORAL SUSPENSION 30 ML CUP PO PRN (21:34)
[2018-07-11] MEDS ORDERED: MENTHOL/PHENOL 1 EACH UD MM PRN (21:34)
[2018-07-11] MEDS ORDERED: guaiFENesin/D-METHORPHAN HB 10 ML UNIT-DOSE CUPS PO PRN (21:34)
[2018-07-11] MEDS ORDERED: NICOTINE POLACRILEX 2 MG GUM BC PRN (21:34)
[2018-07-11] MEDS ORDERED: ACETAMINOPHEN 325 MG TABLET (FP) PO PRN (21:34)
[2018-07-11] MEDS ORDERED: LOPERAMIDE HCL 2 MG CAPSULE PO PRN (21:34)
[2018-07-11] MEDS ORDERED: MAG HYDROX/AL HYDROX/SIMETH 30 ML UNIT-DOSE CUP PO PRN (21:34)
[2018-07-11] MEDS ORDERED: P-EPHED 60MG/TRIPROLIDI 2.5MG TABLET PO PRN (21:34)
[2018-07-11] MEDS ORDERED: MELATONIN 5 MG TABLETS PO PRN (22:00)
[2018-07-11] MEDS: diazePAM 5 MG TABLET PO PRN (22:25)
[2018-07-11] MEDS: ATORVASTATIN CA 40 MG TABLET (FP) PO SCH (22:25)
[2018-07-11] MEDS: CIPROFLOXACIN 0.3% EYE DROPS 5 ML BOTTLE OU SCH (22:25)
[2018-07-11] MEDS: THIAMINE HCL 100 MG TABLET (FP) PO SCH (22:26)
[2018-07-11] MEDS: metFORMIN HCL 500 MG TABLET (FP) PO SCH (22:26)
[2018-07-12] MEDS: metFORMIN HCL 500 MG TABLET (FP) PO SCH ×2 (06:39→17:13)
[2018-07-12] MEDS ORDERED: METHADONE HCL 10 MG TABLET (FOR DETOX USE ONLY) PO ONE (10:00)
[2018-07-12 10:18] LABS: HEMATOCRIT 36.4 % (35.4-49); HEMOGLOBIN 11.6 GM/dL (11.7-16.9); MCH 27.7 pg (25.7-33.7); MCHC 31.9 g/dl (32.0-35.9); MEAN CELL VOLUME 86.9 fl (80-96); MEAN PLT VOLUME 7.5 fl (7.5-11.1); PLATELET COUNT 255 K/MM3 (134-434); RBC 4.19 M/mm3 (4.00-5.60); WHITE BLOOD COUNT 6.1 K/mm3 (4.0-10.0)
[2018-07-12] MEDS: CIPROFLOXACIN 0.3% EYE DROPS 5 ML BOTTLE OU SCH ×2 (10:35→22:14)
[2018-07-12] MEDS: PRENATAL VITAMINS W/ FOLIC ACID TABLET (FP) PO SCH (10:36)
[2018-07-12] MEDS: LISINOPRIL 20 MG TABLET (FP) PO SCH (10:37)
[2018-07-12] MEDS: diazePAM 5 MG TABLET PO PRN ×2 (10:40→23:00)
[2018-07-12 10:43] LABS: ALBUMIN 3.2 g/dl (3.4-5.0); ALK PHOS 102 U/L (45-117); ANION GAP 7 MMOL/L (8-16); BILIRUBIN,TOTAL 0.3 mg/dL (0.2-1); BLOOD UREA NITROGEN 11 mg/dL (7-18); CALCIUM 8.7 mg/dL (8.5-10.1); CHLORIDE 105 mmol/L (98-107); CO2 26 mmol/L (21-32); CREATININE 0.6 mg/dL (0.55-1.3); GLUCOSE,RANDOM 99 mg/dL (74-106); POTASSIUM 4.4 mmol/L (3.5-5.1); SGOT/AST 15 U/L (15-37); SGPT/ALT 18 U/L (13-61); SODIUM 137 mmol/L (136-145); TOT PROT 7.1 g/dl (6.4-8.2)
[2018-07-12] MEDS: NICOTINE 14 MG/24 HOURS TOPICAL PATCH TD SCH (10:52)
[2018-07-12 11:23] LABS: URINE APPEARANCE TURBID; URINE BILIRUBIN NEGATIVE (<2.0 mg/dL); URINE COLOR AMBER; URINE GLUCOSE (UA) NEGATIVE (NEGATIVE); URINE KETONE NEGATIVE (NEGATIVE); URINE LEUK ESTERASE NEGATIVE (NEGATIVE); URINE NITRITE NEGATIVE (NEGATIVE); URINE PROTEIN NEGATIVE (NEGATIVE); URINE UROBILINOGEN NEGATIVE mg/dL (0.2-1.0)
[2018-07-12] MEDS ORDERED: FLU VACCINE QUAD 60 MCG/0.5 ML (MDV 18-19) IM ONE (12:00)
--- NOTE | 2018-07-12 12:42 | CONSULT ---
[facility] Psychiatric Consult - Data Date of interview: 07/12/18 Admission source: [facility] Identifying data: One of several admissions to [facility] for this 58 y/o male seeking detox treatment on for heroin dependence.Patient is single,a father of one,domiciled,unemployed and supported on SSI benefits. Substance Abuse History: Confirmed by the patient in this interview.Details in current [facility] report : Smoking history: Current every day smoker. Have you smoked in the past 12 months: Yes. Aproximately how many cigarettes per day: 8. Cigars Per Day: 0. Hx Chewing Tobacco Use: No. Initiated information on smoking cessation: Yes. 'Breaking Loose' booklet given: 07/11/18. - Substance & Tx. History. Hx Alcohol Use: No. Hx Substance Use: Yes. Substance Use Type : Heroin. Hx Substance Use Treatment: Yes ([facility]). - Substances Abused. Heroin. Route: Injection. Frequency: Daily. Amount used: 5 BAGS DAILY. Age of first use: 42. Date of Last Use: 07/10/18 Medical History: hypercholesterolemia,diabetes mellitus,hepatitis C and hypertension. Psychiatric History: Personal history of multiple psychiatric hospitalizations ( [facility]).Mr Villareal is still followed for OPD psychiatric care at [facility] in the [place].Diagnosed with Bipolar Disorder.Prescribed zolpidem 10 mg/hs + seroquel 200 mg/hs.Patient denies history of suicide attempts. Physical/Sexual Abuse/Trauma History: Patient denies. Additional Comment: Urine Drug Screen Results: OPI-Opiates, BAR- Barbiturates.Noted. Mental Status Exam - Mental Status Exam Alert and Oriented to: Time, Place, Person Cognitive Function: Good Patient Appearance: Well Groomed Mood: Anxious, Hopeful Affect: Mood Congruent Patient Behavior: Appropriate, Cooperative Speech Pattern: Clear Voice Loudness: Normal Thought Process: Intact, Goal Oriented Thought Disorder: Not Present Hallucinations: Denies Suicidal Ideation: Denies Homicidal Ideation: Denies Insight/Judgement: Poor Sleep: Poorly, Difficulty falling asleep Appetite: Good Muscle strength/Tone: Normal Gait/Station: Normal Psychiatric Findings - Problem List ([place] 1, 2,3) (1) Opioid dependence with withdrawal Current Visit: Yes Status: Acute (2) Nicotine dependence Current Visit: Yes Status: Acute (3) Substance induced mood disorder Current Visit: Yes Status: Acute (4) Bipolar disorder Current Visit: Yes Status: Chronic Comment: As per self-report. (5) Insomnia Current Visit: Yes Status: Acute Qualifiers: Insomnia type: drug-induced Qualified Code(s): F19.982 - Other psychoactive substance use, unspecified with psychoactive substance-induced sleep disorder - Initial Treatment Plan Initial Treatment Plan: Psychoeducation.Sleep hygiene.Detoxification.Medications : seroquel 200 mg po hs + ambien 10 mg po hs prn.Side effects/benefits of both medications are discussed with the patient.Agrees with careplan.Observation.
--- NOTE | 2018-07-12 15:51 | PN ---
[facility]HS COWS - Scale Resting Pulse: 0= [place] 80 or Below Sweatin= Chills/Flushing Restless Observation: 1= Difficult to Sit Still Pupil Size: 0= Normal to Room Light Bone or Joint Aches: 1= Mild Discomfort Runny Nose/ Eye Tearin= Runny Nose/Eyes GI Upset > 30mins: 0= None Tremor Observation of Outstretched Hands: 2= Slight Tremor Visible Yawning Observation: 2= >3x During Session Anxiety or Irritability: 2=Irritable/Anxious Goose Flesh Skin: 0=Smooth Skin COWS Score: 11 BHS Progress Note (SOAP) Subjective: irritable, anxious, sweats Objective: 07/12/18 15:49 Vital Signs Temperature 96.7 F L 07/12/18 13:24 Pulse Rate 66 07/12/18 13:24 Respiratory Rate 16 07/12/18 13:24 Blood Pressure 104/59 L 07/12/18 13:24 O2 Sat by Pulse Oximetry (%) Laboratory Last Values WBC 6.1 K/mm3 (4.0-10.0) 07/12/18 08:00 RBC 4.19 M/mm3 (4.00-5.60) 07/12/18 08:00 Hgb 11.6 GM/dL (11.7-16.9) L 07/12/18 08:00 Hct 36.4 % (35.4-49) 07/12/18 08:00 MCV 86.9 fl (80-96) 07/12/18 08:00 MCH 27.7 pg (25.7-33.7) 07/12/18 08:00 MCHC 31.9 g/dl (32.0-35.9) L 07/12/18 08:00 RDW 14.0 % (11.9-15.9) 07/12/18 08:00 Plt Count 255 K/MM3 (134-434) 07/12/18 08:00 MPV 7.5 fl (7.5-11.1) 07/12/18 08:00 Sodium 137 mmol/L (136-145) 07/12/18 08:00 Potassium 4.4 mmol/L (3.5-5.1) 07/12/18 08:00 Chloride 105 mmol/L (98-107) 07/12/18 08:00 Carbon Dioxide 26 mmol/L (21-32) 07/12/18 08:00 Anion Gap 7 MMOL/L (8-16) L 07/12/18 08:00 BUN 11 mg/dL (7-18) 07/12/18 08:00 Creatinine 0.6 mg/dL (0.55-1.3) 07/12/18 08:00 Creat Clearance w eGFR > 60 (>60) 07/12/18 08:00 POC Glucometer 110 UNITS (80-120) 07/12/18 05:32 Random Glucose 99 mg/dL (74-106) 07/12/18 08:00 Calcium 8.7 mg/dL (8.5-10.1) 07/12/18 08:00 Total Bilirubin 0.3 mg/dL (0.2-1) 07/12/18 08:00 AST 15 U/L (15-37) 07/12/18 08:00 ALT 18 U/L (13-61) 07/12/18 08:00 Alkaline Phosphatase 102 U/L (45-117) 07/12/18 08:00 Total Protein 7.1 g/dl (6.4-8.2) 07/12/18 08:00 Albumin 3.2 g/dl (3.4-5.0) L 07/12/18 08:00 Urine Color Jami 07/11/18 10:00 Urine Appearance Turbid 07/11/18 10:00 Urine pH 5.0 (5.0-8.0) 07/11/18 10:00 Ur Specific [place] 1.028 (1.010-1.035) 07/11/18 10:00 Urine Protein Negative (NEGATIVE) 07/11/18 10:00 Urine Glucose (UA) Negative (NEGATIVE) 07/11/18 10:00 Urine Ketones Negative (NEGATIVE) 07/11/18 10:00 Urine Blood Negative (NEGATIVE) 07/11/18 10:00 Urine Nitrite Negative (NEGATIVE) 07/11/18 10:00 Urine Bilirubin Negative (<2.0 mg/dL) 07/11/18 10:00 Urine Urobilinogen Negative mg/dL (0.2-1.0) 07/11/18 10:00 Ur Leukocyte Esterase Negative (NEGATIVE) 07/11/18 10:00 RPR Titer Nonreactive (NONREACTIVE) 07/12/18 08:00 labs reviewed Assessment: 07/12/18 15:50 withdrawal sx Plan: increase fluids continue detox continue to monitor
--- NOTE | 2018-07-12 17:27 | EKG ---
Test Reason : Blood Pressure : / mmHG Vent. Rate : 061 BPM Atrial Rate : 061 BPM P-R Int : 162 ms QRS Dur : 072 ms QT Int : 380 ms P-R-T Axes : 063 080 072 degrees QTc Int : 382 ms NORMAL SINUS RHYTHM NORMAL ECG WHEN COMPARED WITH ECG OF 20-MAR-2018 23:11, NO SIGNIFICANT CHANGE WAS FOUND BASELINE ARTIFACT Confirmed by NELA KITCHEN, MINDY ([id number]) on 07/12/2018 5:27:30 PM Referred By: Confirmed By:MINDY RONDON MD
[2018-07-12] MEDS ORDERED: PATIENT'S OWN MEDICATION (NON-FORMULARY) (Zolpidem Tartrate [Ambien] 10 MG) PO SCH (22:00)
[2018-07-12] MEDS: THIAMINE HCL 100 MG TABLET (FP) PO SCH (22:59)
[2018-07-12] MEDS: ATORVASTATIN CA 40 MG TABLET (FP) PO SCH (22:59)
[2018-07-12] MEDS: QUEtiapine FUMARATE 200 MG TABLET PO SCH (22:59)
[2018-07-12] MEDS: ZOLPIDEM TARTRATE 10 MG TABLET (PARK CARE ONLY) PO PRN (23:01)
[2018-07-13] MEDS: metFORMIN HCL 500 MG TABLET (FP) PO SCH ×2 (07:59→17:30)
[2018-07-13] MEDS ORDERED: METHADONE HCL 5 MG TABLET (FOR DETOX USE ONLY) PO ONE (10:00)
[2018-07-13] MEDS: CIPROFLOXACIN 0.3% EYE DROPS 5 ML BOTTLE OU SCH ×2 (10:41→22:41)
[2018-07-13] MEDS: PRENATAL VITAMINS W/ FOLIC ACID TABLET (FP) PO SCH (10:41)
[2018-07-13] MEDS: diazePAM 5 MG TABLET PO PRN ×3 (10:44→22:40)
[2018-07-13] MEDS: NICOTINE 14 MG/24 HOURS TOPICAL PATCH TD SCH (10:45)
[2018-07-13] MEDS: LISINOPRIL 20 MG TABLET (FP) PO SCH (10:46)
--- NOTE | 2018-07-13 13:57 | PN ---
BHS COWS - Scale Resting Pulse: 0= [place] 80 or Below Sweatin= Chills/Flushing Restless Observation: 1= Difficult to Sit Still Pupil Size: 0= Normal to Room Light Bone or Joint Aches: 2= Severe Diffuse Aches Runny Nose/ Eye Tearin= Nasal Congestion GI Upset > 30mins: 2= Nausea/Diarrhea Tremor Observation of Outstretched Hands: 2= Slight Tremor Visible Yawning Observation: 0= None Anxiety or Irritability: 2=Irritable/Anxious Goose Flesh Skin: 0=Smooth Skin COWS Score: 11 S Progress Note (SOAP) Subjective: Irritability, interrupted sleep and weakness Objective: 07/13/18 13:56 Vital Signs - 8 hr 07/13/18 07/13/18 07/13/18 06:47 09:12 13:19 Temperature 97.1 F L 97.9 F 97.9 F Pulse Rate 51 L 70 71 Respiratory 18 20 18 Rate Blood Pressure 125/64 108/65 131/82 Laboratory Last Values WBC 6.1 K/mm3 (4.0-10.0) 07/12/18 08:00 RBC 4.19 M/mm3 (4.00-5.60) 07/12/18 08:00 Hgb 11.6 GM/dL (11.7-16.9) L 07/12/18 08:00 Hct 36.4 % (35.4-49) 07/12/18 08:00 MCV 86.9 fl (80-96) 07/12/18 08:00 MCH 27.7 pg (25.7-33.7) 07/12/18 08:00 MCHC 31.9 g/dl (32.0-35.9) L 07/12/18 08:00 RDW 14.0 % (11.9-15.9) 07/12/18 08:00 Plt Count 255 K/MM3 (134-434) 07/12/18 08:00 MPV 7.5 fl (7.5-11.1) 07/12/18 08:00 Sodium 137 mmol/L (136-145) 07/12/18 08:00 Potassium 4.4 mmol/L (3.5-5.1) 07/12/18 08:00 Chloride 105 mmol/L (98-107) 07/12/18 08:00 Carbon Dioxide 26 mmol/L (21-32) 07/12/18 08:00 Anion Gap 7 MMOL/L (8-16) L 07/12/18 08:00 BUN 11 mg/dL (7-18) 07/12/18 08:00 Creatinine 0.6 mg/dL (0.55-1.3) 07/12/18 08:00 Creat Clearance w eGFR > 60 (>60) 07/12/18 08:00 POC Glucometer 152 UNITS (80-120) 07/13/18 05:53 Random Glucose 99 mg/dL (74-106) 07/12/18 08:00 Calcium 8.7 mg/dL (8.5-10.1) 07/12/18 08:00 Total Bilirubin 0.3 mg/dL (0.2-1) 07/12/18 08:00 AST 15 U/L (15-37) 07/12/18 08:00 ALT 18 U/L (13-61) 07/12/18 08:00 Alkaline Phosphatase 102 U/L (45-117) 07/12/18 08:00 Total Protein 7.1 g/dl (6.4-8.2) 07/12/18 08:00 Albumin 3.2 g/dl (3.4-5.0) L 07/12/18 08:00 Urine Color Jami 07/11/18 10:00 Urine Appearance Turbid 07/11/18 10:00 Urine pH 5.0 (5.0-8.0) 07/11/18 10:00 Ur Specific [place] 1.028 (1.010-1.035) 07/11/18 10:00 Urine Protein Negative (NEGATIVE) 07/11/18 10:00 Urine Glucose (UA) Negative (NEGATIVE) 07/11/18 10:00 Urine Ketones Negative (NEGATIVE) 07/11/18 10:00 Urine Blood Negative (NEGATIVE) 07/11/18 10:00 Urine Nitrite Negative (NEGATIVE) 07/11/18 10:00 Urine Bilirubin Negative (<2.0 mg/dL) 07/11/18 10:00 Urine Urobilinogen Negative mg/dL (0.2-1.0) 07/11/18 10:00 Ur Leukocyte Esterase Negative (NEGATIVE) 07/11/18 10:00 RPR Titer Nonreactive (NONREACTIVE) 07/12/18 08:00 Labs noted Assessment: 07/13/18 13:57 Withdrawal sx Plan: Continue detox
[2018-07-13] MEDS: THIAMINE HCL 100 MG TABLET (FP) PO SCH (22:40)
[2018-07-13] MEDS: ATORVASTATIN CA 40 MG TABLET (FP) PO SCH (22:41)
[2018-07-13] MEDS: QUEtiapine FUMARATE 200 MG TABLET PO SCH (22:41)
[2018-07-13] MEDS: ZOLPIDEM TARTRATE 10 MG TABLET (PARK CARE ONLY) PO PRN (22:43)
[2018-07-14] MEDS: diazePAM 5 MG TABLET PO PRN ×3 (05:53→17:16)
[2018-07-14] MEDS: metFORMIN HCL 500 MG TABLET (FP) PO SCH ×2 (07:35→17:16)
[2018-07-14] MEDS ORDERED: METHADONE HCL 5 MG TABLET (FOR DETOX USE ONLY) PO ONE (10:00)
[2018-07-14] MEDS: LISINOPRIL 20 MG TABLET (FP) PO SCH (10:31)
[2018-07-14] MEDS: PRENATAL VITAMINS W/ FOLIC ACID TABLET (FP) PO SCH (10:31)
[2018-07-14] MEDS: CIPROFLOXACIN 0.3% EYE DROPS 5 ML BOTTLE OU SCH ×2 (10:32→22:04)
[2018-07-14] MEDS: NICOTINE 14 MG/24 HOURS TOPICAL PATCH TD SCH (10:32)
--- NOTE | 2018-07-14 14:02 | PN ---
BHS Progress Note (SOAP) Subjective: Sleep disturbance Requesting to speak with counselor for aftercare plans Objective: 07/14/18 14:01 A & O x 3 Gait steady Vital Signs Temperature 97.1 F L 07/14/18 13:25 Pulse Rate 77 07/14/18 13:25 Respiratory Rate 18 07/14/18 13:25 Blood Pressure 121/78 07/14/18 13:25 O2 Sat by Pulse Oximetry (%) Assessment: 07/14/18 14:01 withdrawal sx Plan: continue detox Directed to counselor in day room
[2018-07-14] MEDS: QUEtiapine FUMARATE 200 MG TABLET PO SCH (22:03)
[2018-07-14] MEDS: THIAMINE HCL 100 MG TABLET (FP) PO SCH (22:03)
[2018-07-14] MEDS: ZOLPIDEM TARTRATE 10 MG TABLET (PARK CARE ONLY) PO PRN (22:03)
[2018-07-14] MEDS: ATORVASTATIN CA 40 MG TABLET (FP) PO SCH (22:03)
[2018-07-15] MEDS: metFORMIN HCL 500 MG TABLET (FP) PO SCH ×2 (06:23→17:18)
[2018-07-15] MEDS ORDERED: METHADONE HCL 10 MG TABLET (FOR DETOX USE ONLY) PO ONE (10:00)
[2018-07-15] MEDS: PRENATAL VITAMINS W/ FOLIC ACID TABLET (FP) PO SCH (10:30)
[2018-07-15] MEDS: CIPROFLOXACIN 0.3% EYE DROPS 5 ML BOTTLE OU SCH ×2 (10:30→22:47)
[2018-07-15] MEDS: LISINOPRIL 20 MG TABLET (FP) PO SCH (10:30)
[2018-07-15] MEDS: NICOTINE 14 MG/24 HOURS TOPICAL PATCH TD SCH (10:30)
--- NOTE | 2018-07-15 15:20 | PN ---
[facility] Progress Note (SOAP) Subjective: Sweating, interrupted sleep Objective: 07/15/18 15:16 Last Vital Signs Temp Pulse Resp BP Pulse Ox 96.5 F L 74 18 143/89 07/15/18 14:18 07/15/18 14:18 07/15/18 14:18 07/15/18 14:18 Laboratory Tests 07/11/18 07/11/18 07/11/18 10:00 17:29 22:06 WBC RBC Hgb Hct MCV MCH MCHC RDW Plt Count MPV Sodium Potassium Chloride Carbon Dioxide Anion Gap BUN Creatinine Creat Clearance w eGFR POC Glucometer 99 103 Random Glucose Calcium Total Bilirubin AST ALT Alkaline Phosphatase Total Protein Albumin Urine Color Jami Urine Appearance Turbid Urine pH 5.0 Ur Specific [place] 1.028 Urine Protein Negative Urine Glucose (UA) Negative Urine Ketones Negative Urine Blood Negative Urine Nitrite Negative Urine Bilirubin Negative Urine Urobilinogen Negative Ur Leukocyte Esterase Negative RPR Titer 07/12/18 07/12/18 07/12/18 05:32 08:00 08:00 WBC 6.1 RBC 4.19 Hgb 11.6 L Hct 36.4 MCV 86.9 MCH 27.7 MCHC 31.9 L RDW 14.0 Plt Count 255 MPV 7.5 Sodium 137 Potassium 4.4 Chloride 105 Carbon Dioxide 26 Anion Gap 7 L BUN 11 Creatinine 0.6 Creat Clearance w eGFR > 60 POC Glucometer 110 Random Glucose 99 Calcium 8.7 Total Bilirubin 0.3 AST 15 ALT 18 Alkaline Phosphatase 102 Total Protein 7.1 Albumin 3.2 L Urine Color Urine Appearance Urine pH Ur Specific [place] Urine Protein Urine Glucose (UA) Urine Ketones Urine Blood Urine Nitrite Urine Bilirubin Urine Urobilinogen Ur Leukocyte Esterase RPR Titer 07/12/18 07/12/18 07/13/18 08:00 16:37 05:53 WBC RBC Hgb Hct MCV MCH MCHC RDW Plt Count MPV Sodium Potassium Chloride Carbon Dioxide Anion Gap BUN Creatinine Creat Clearance w eGFR POC Glucometer 109 152 Random Glucose Calcium Total Bilirubin AST ALT Alkaline Phosphatase Total Protein Albumin Urine Color Urine Appearance Urine pH Ur Specific [place] Urine Protein Urine Glucose (UA) Urine Ketones Urine Blood Urine Nitrite Urine Bilirubin Urine Urobilinogen Ur Leukocyte Esterase RPR Titer Nonreactive 07/13/18 07/14/18 07/14/18 16:51 05:52 16:19 WBC RBC Hgb Hct MCV MCH MCHC RDW Plt Count MPV Sodium Potassium Chloride Carbon Dioxide Anion Gap BUN Creatinine Creat Clearance w eGFR POC Glucometer 182 152 225 Random Glucose Calcium Total Bilirubin AST ALT Alkaline Phosphatase Total Protein Albumin Urine Color Urine Appearance Urine pH Ur Specific [place] Urine Protein Urine Glucose (UA) Urine Ketones Urine Blood Urine Nitrite Urine Bilirubin Urine Urobilinogen Ur Leukocyte Esterase RPR Titer 07/15/18 05:42 WBC RBC Hgb Hct MCV MCH MCHC RDW Plt Count MPV Sodium Potassium Chloride Carbon Dioxide Anion Gap BUN Creatinine Creat Clearance w eGFR POC Glucometer 205 Random Glucose Calcium Total Bilirubin AST ALT Alkaline Phosphatase Total Protein Albumin Urine Color Urine Appearance Urine pH Ur Specific [place] Urine Protein Urine Glucose (UA) Urine Ketones Urine Blood Urine Nitrite Urine Bilirubin Urine Urobilinogen Ur Leukocyte Esterase RPR Titer Labs reviewed: increased glucose noted Assessment: 07/15/18 15:17 Withdrawal sxs Noted with hyperglycemia Plan: Continue detox Hyperglycemia secondary to DMT2: continue present regimen, encourage adherence to diabetic diet
[2018-07-15] MEDS: THIAMINE HCL 100 MG TABLET (FP) PO SCH (22:48)
[2018-07-15] MEDS: ATORVASTATIN CA 40 MG TABLET (FP) PO SCH (22:48)
[2018-07-15] MEDS: QUEtiapine FUMARATE 200 MG TABLET PO SCH (22:48)
[2018-07-15] MEDS: ZOLPIDEM TARTRATE 10 MG TABLET (PARK CARE ONLY) PO PRN (22:49)
[2018-07-16] MEDS ORDERED: METHADONE HCL 5 MG TABLET (FOR DETOX USE ONLY) PO ONE (06:00)
[2018-07-16 06:49] VITALS: BP 147/80; PULSE 61; TEMP 97.5
[2018-07-16] MEDS: metFORMIN HCL 500 MG TABLET (FP) PO SCH (07:17)
--- NOTE | 2018-07-16 15:23 | DS ---
[facility] Detox Discharge Summary Admission Date: 07/11/18 Discharge Date: 07/16/18 - History Present History: Opioid Dependence Pertinent Past History: DMT2 HTN Hepatitis C HLD - Physical Exam Results Vital Signs: Vital Signs Temperature 97.5 F L 07/16/18 06:48 Pulse Rate 61 07/16/18 06:48 Respiratory Rate 18 07/16/18 06:48 Blood Pressure 147/80 07/16/18 06:48 O2 Sat by Pulse Oximetry (%) Pertinent Admission Physical Exam Findings: Withdrawal sxs Laboratory Tests 07/11/18 07/11/18 07/11/18 10:00 17:29 22:06 WBC RBC Hgb Hct MCV MCH MCHC RDW Plt Count MPV Sodium Potassium Chloride Carbon Dioxide Anion Gap BUN Creatinine Creat Clearance w eGFR POC Glucometer 99 103 Random Glucose Calcium Total Bilirubin AST ALT Alkaline Phosphatase Total Protein Albumin Urine Color Jami Urine Appearance Turbid Urine pH 5.0 Ur Specific [place] 1.028 Urine Protein Negative Urine Glucose (UA) Negative Urine Ketones Negative Urine Blood Negative Urine Nitrite Negative Urine Bilirubin Negative Urine Urobilinogen Negative Ur Leukocyte Esterase Negative RPR Titer 07/12/18 07/12/18 07/12/18 05:32 08:00 08:00 WBC 6.1 RBC 4.19 Hgb 11.6 L Hct 36.4 MCV 86.9 MCH 27.7 MCHC 31.9 L RDW 14.0 Plt Count 255 MPV 7.5 Sodium 137 Potassium 4.4 Chloride 105 Carbon Dioxide 26 Anion Gap 7 L BUN 11 Creatinine 0.6 Creat Clearance w eGFR > 60 POC Glucometer 110 Random Glucose 99 Calcium 8.7 Total Bilirubin 0.3 AST 15 ALT 18 Alkaline Phosphatase 102 Total Protein 7.1 Albumin 3.2 L Urine Color Urine Appearance Urine pH Ur Specific [place] Urine Protein Urine Glucose (UA) Urine Ketones Urine Blood Urine Nitrite Urine Bilirubin Urine Urobilinogen Ur Leukocyte Esterase RPR Titer 07/12/18 07/12/18 07/13/18 08:00 16:37 05:53 WBC RBC Hgb Hct MCV MCH MCHC RDW Plt Count MPV Sodium Potassium Chloride Carbon Dioxide Anion Gap BUN Creatinine Creat Clearance w eGFR POC Glucometer 109 152 Random Glucose Calcium Total Bilirubin AST ALT Alkaline Phosphatase Total Protein Albumin Urine Color Urine Appearance Urine pH Ur Specific [place] Urine Protein Urine Glucose (UA) Urine Ketones Urine Blood Urine Nitrite Urine Bilirubin Urine Urobilinogen Ur Leukocyte Esterase RPR Titer Nonreactive 07/13/18 07/14/18 07/14/18 16:51 05:52 16:19 WBC RBC Hgb Hct MCV MCH MCHC RDW Plt Count MPV Sodium Potassium Chloride Carbon Dioxide Anion Gap BUN Creatinine Creat Clearance w eGFR POC Glucometer 182 152 225 Random Glucose Calcium Total Bilirubin AST ALT Alkaline Phosphatase Total Protein Albumin Urine Color Urine Appearance Urine pH Ur Specific [place] Urine Protein Urine Glucose (UA) Urine Ketones Urine Blood Urine Nitrite Urine Bilirubin Urine Urobilinogen Ur Leukocyte Esterase RPR Titer 07/15/18 07/15/18 07/16/18 05:42 16:19 05:49 WBC RBC Hgb Hct MCV MCH MCHC RDW Plt Count MPV Sodium Potassium Chloride Carbon Dioxide Anion Gap BUN Creatinine Creat Clearance w eGFR POC Glucometer 205 298 199 Random Glucose Calcium Total Bilirubin AST ALT Alkaline Phosphatase Total Protein Albumin Urine Color Urine Appearance Urine pH Ur Specific [place] Urine Protein Urine Glucose (UA) Urine Ketones Urine Blood Urine Nitrite Urine Bilirubin Urine Urobilinogen Ur Leukocyte Esterase RPR Titer Labs reviewed - Treatment Hospital Course: Detox Protocol Followed, Detoxed Safely, Responded well, Discharged Condition Good - Medication Discharge Medications: Ambulatory Orders metFORMIN HCL [Glucophage -] 500 mg PO BID 08/31/16 Atorvastatin Ca [Lipitor] 40 mg PO HS 12/25/17 Ciprofloxacin 0.3% Eye Drops [Ciloxan 0.3% Eye Drops --] 1 drop OU BID 12/25/17 Lisinopril 1 tab PO DAILY 12/25/17 Quetiapine Fumarate [Seroquel -] 200 mg PO HS #30 tab 12/25/17 Zolpidem Tartrate [Ambien] 10 mg PO HS 07/11/18 - Diagnosis (1) Type 2 diabetes mellitus with hyperglycemia Status: Chronic (2) Insomnia Status: Acute Qualifiers: Insomnia type: drug-induced Qualified Code(s): F19.982 - Other psychoactive substance use, unspecified with psychoactive substance-induced sleep disorder (3) Nicotine dependence Status: Chronic (4) Opioid dependence with withdrawal Status: Acute (5) Substance induced mood disorder Status: Acute (6) Bipolar disorder Status: Chronic (7) HLD (hyperlipidemia) Status: Chronic Qualifiers: Hyperlipidemia type: pure hypercholesterolemia Qualified Code(s): E78.00 - Pure hypercholesterolemia, unspecified; E78.0 - Pure hypercholesterolemia (8) Hypertension Status: Chronic Qualifiers: Hypertension type: essential hypertension Qualified Code(s): I10 - Essential (primary) hypertension (9) Depression (emotion) Status: Chronic Qualifiers: Depression Type: dysthymia Qualified Code(s): F34.1 - Dysthymic disorder (10) Hepatitis C Status: Chronic Qualifiers: Viral hepatitis chronicity: chronic Hepatic coma status: without hepatic coma Qualified Code(s): B18.2 - Chronic viral hepatitis C - AMA Did Patient Leave Against Medical Advice: No (F/U with your PCP within 1-2 weeks )
== END 2018-07-16 08:38 | disposition home or self-care (01) | DRG 897 ==
LOC: YASAS 12:11 → Y3N 18:41
PROC: HZ2ZZZZ Detoxification Services for Substance Abuse Treatment (ICD-10-PCS; principal; 2018-07-11)
DX: F11.23 Opioid dependence with withdrawal (principal); F19.282 Other psychoactive substance dependence with psychoactive substance-induced sleep disorder; L02.413 Cutaneous abscess of right upper limb; F17.210 Nicotine dependence, cigarettes, uncomplicated; F19.24 Other psychoactive substance dependence with psychoactive substance-induced mood disorder; F31.9 Bipolar disorder, unspecified; F34.1 Dysthymic disorder; I10 Essential (primary) hypertension; E78.5 Hyperlipidemia, unspecified; E11.65 Type 2 diabetes mellitus with hyperglycemia; B18.2 Chronic viral hepatitis C; H04.123 Dry eye syndrome of bilateral lacrimal glands; Z79.84 Long term (current) use of oral hypoglycemic drugs
CPT/HCPCS: 36415; 80053; 81003; 82962; 85027; 86593; 90688; 93005; 93010; G0008

== ENCOUNTER 2018-12-08 15:17 | Inpatient (IN) | payer OTHER ==
[2018-12-08 17:08] VITALS: BMI 24.7
--- NOTE | 2018-12-08 21:10 | HP ---
COWS - Scale Resting Pulse: 0= [place] 80 or Below Sweatin= No chills or Flushing Restless Observation: 1= Difficult to Sit Still Pupil Size: 0= Normal to Room Light Bone or Joint Aches: 0= None Runny Nose/ Eye Tearin= Runny Nose/Eyes GI Upset > 30mins: 0= None Tremor Observation: 0= None Yawning Observation: 2= >3x During Session Anxiety or Irritability: 2=Irritable/Anxious Goose Flesh Skin: 0=Smooth Skin COWS Score: 7 CIWA Score - Admission Criteria OASAS Guidelines: Admission for Medically Managed Detox: Requires at least one of the followin. CIWA greater than 12 2. Seizures within the past 24 hours 3. Delirium tremens within the past 24 hours 4. Hallucinations within the past 24 hours 5. Acute intervention needed for co occurring medical disorder 6. Acute intervention needed for co occurring psychiatric disorder 7. Severe withdrawal that cannot be handled at a lower level of care (continued vomiting, continued diarrhea, abnormal vital signs) requiring intravenous medication and/or fluids 8. Admission ROS [facility] Chief Complaint: c/o worsening withdrawal sx's. seeking detox txment Allergies/Adverse Reactions: Allergies Allergy/AdvReac Type Severity Reaction Status Date / Time No Known Allergies Allergy Verified 12/08/18 18:57 History of Present Illness: 58 y.o. male with hx/o opioid dependence here for detox. Client reports he is using heroin. He is self referred. Known to the program. Last admission 2017. his utox is postive for fentanyl, opiates, bzo. Client denies benzo use. States last used 3 months ago. Cows 8. recently discontinued from [facility] due to his continual heroin use. Reports longest clean time 3 years. Denies hx/o drug overdose, seizures, past/present si/hi, avh. Lives alone, unemployed-ssd, denies legals. pmhx- dm, htn, hld, psyc- denies Exam Limitations: No Limitations - Ebola screening Have you traveled outside of the country in the last 21 days: No Have you had contact with anyone from an Ebola affected area: No Have you been sick,other than usual withdrawal symptoms: No Do you have a fever: No - Review of Systems Constitutional: Chills, Changes in sleep EENT: reports: Other (gingilitis of both eyes) Respiratory: reports: No Symptoms reported Cardiac: reports: No Symptoms Reported GI: reports: No Symptoms Reported : reports: No Symptoms Reported Musculoskeletal: reports: No Symptoms Reported Integumentary: reports: Rash (ezcema) Neuro: reports: No Symptoms reported Endocrine: reports: No Symptoms Reported Hematology: reports: No Symptoms Reported Psychiatric: reports: No Sypmtoms Reported Other Systems: Reviewed and Negative Patient History - Patient Medical History Hx Anemia: No Hx Asthma: No Hx Chronic Obstructive Pulmonary Disease (COPD): No Hx Cancer: No Hx Cardiac Disorders: No Hx Congestive Heart Failure: No Hx Hypertension: Yes (lisinopril) Hx Hypercholesterolemia: Yes (lipitor) Hx Pacemaker: No HX Cerebrovascular Accident: No Hx Seizures: No Hx Dementia: No Hx Diabetes: Yes (Metformin) Hx Gastrointestinal Disorders: No Hx Liver Disease: Yes (Hep C- no txment) Hx Genitourinary Disorders: No Hx Sexually Transmitted Disorders: No Hx Renal Disease (ESRD): No Hx Thyroid Disease: No Hx Human Immunodeficiency Virus (HIV): No Hx Hepatitis C: Yes (no txment) Hx Depression: Yes Hx Suicide Attempt: No Hx Bipolar Disorder: No Hx Schizophrenia: No Other Medical History: gingivits of eyes - Patient Surgical History Past Surgical History: No Hx Neurologic Surgery: No Hx Cataract Extraction: No Hx Cardiac Surgery: No Hx Lung Surgery: No Hx Breast Surgery: No Hx Breast Biopsy: No Hx Abdominal Surgery: No Hx Appendectomy: No Hx Cholecystectomy: No Hx Genitourinary Surgery: No Hx Section: No Hx Orthopedic Surgery: No Anesthesia Reaction: No - PPD History Previous Implant?: Yes Documented Results: Negative w/proof Date: 08/29/17 Results: NEGATIVE PPD to be Administered?: Yes - Smoking Cessation Smoking history: Current every day smoker Have you smoked in the past 12 months: Yes Aproximately how many cigarettes per day: 8 Cigars Per Day: 0 Hx Chewing Tobacco Use: No Initiated information on smoking cessation: Yes 'Breaking Loose' booklet given: 12/08/18 - Substance & Tx. History Hx Alcohol Use: No Hx Substance Use: Yes Substance Use Type: Heroin Hx Substance Use Treatment: Yes ([facility]) - Substances Abused heroin Route: Oral Frequency: Daily Amount used: 4 bags Age of first use: 42 Date of Last Use: 12/08/18 Alcohol Route: Oral Frequency: Daily Amount used: 4 bags Age of first use: 42 Date of Last Use: 12/08/18 Family Disease History - Family Disease History Family Disease History: Diabetes: Father () Admission Physical Exam [facility] - Vital Signs Vital Signs: Vital Signs - 24 hr 12/08/18 17:06 Temperature 97.7 F Pulse Rate 77 Respiratory 18 Rate Blood Pressure 126/72 - Physical General Appearance: Yes: Appropriately Dressed, Mild Distress, Irritable HEENTM: Yes: Normocephalic, MOUNA, Pharynx Normal, Other (bilateral conjunctival redness (chronic condition) poor dention missing most of his teeth) Respiratory: Yes: Chest Non-Tender, Lungs Clear, Normal Breath Sounds, No Respiratory Distress, No Accessory Muscle Use Neck: Yes: No masses,lesions,Nodules, Supple, Trachea in good position Breast: Yes: Breast Exam Deferred Cardiology: Yes: Regular Rhythm, Regular Rate Abdominal: Yes: Non Tender, Soft, Increased Bowel Sounds Genitourinary: Yes: Other (no c/o offered) Back: Yes: Normal Inspection Musculoskeletal: Yes: full range of Motion Extremities: Yes: Normal Range of Motion Neurological: Yes: Fully Oriented, Alert, Normal Mood/Affect Integumentary: Yes: Warm, Erythema (of right forearm with indurated areas and scarring from old abcesses), Track [place] Lymphatic: Yes: Within Normal Limits - Diagnostic (1) Insomnia Current Visit: Yes Status: Chronic Qualifiers: Insomnia type: drug-induced Qualified Code(s): F19.982 - Other psychoactive substance use, unspecified with psychoactive substance-induced sleep disorder (2) Opioid dependence with withdrawal Current Visit: Yes Status: Acute (3) Substance induced mood disorder Current Visit: Yes Status: Chronic (4) Abscess of right forearm Current Visit: Yes Status: Acute (5) Conjunctivitis, both eyes Current Visit: No Status: Chronic Qualifiers: Conjunctivitis type: acute Acute conjunctivitis type: bacterial Qualified Code(s): H10.33 - Unspecified acute conjunctivitis, bilateral (6) Dry eye Current Visit: Yes Status: Chronic (7) HLD (hyperlipidemia) Current Visit: Yes Status: Chronic Qualifiers: Hyperlipidemia type: pure hypercholesterolemia Qualified Code(s): E78.00 - Pure hypercholesterolemia, unspecified; E78.0 - Pure hypercholesterolemia (8) Hepatitis C Current Visit: Yes Status: Chronic Qualifiers: Viral hepatitis chronicity: chronic Hepatic coma status: without hepatic coma Qualified Code(s): B18.2 - Chronic viral hepatitis C (9) Hypertension Current Visit: Yes Status: Chronic Qualifiers: Hypertension type: essential hypertension Qualified Code(s): I10 - Essential (primary) hypertension (10) Nicotine dependence Current Visit: Yes Status: Chronic Qualifiers: Nicotine product type: cigarettes Substance use status: uncomplicated Qualified Code(s): F17.210 - Nicotine dependence, cigarettes, uncomplicated (11) Type 2 diabetes mellitus Current Visit: Yes Status: Chronic 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 [facility] use Diabetes mellitus complication status: without complication Qualified Code(s): E11.9 - Type 2 diabetes mellitus without complications; Z79.4 - correction (current) use of insulin Cleared for Admission [facility] - Detox or Rehab [facility] Level of Care: Medically Managed Detox Regimen/Protocol: Methadone Claeared for Rehab Admission: No S Breath Alcohol Content Breath Alcohol Content: 0 Urine Drug Screen - Results Drug Screen Negative: No Urine Drug Screen Results: OPI-Opiates, BZO-Benzodiazepines, FEN-Fentanyl Inpatient Rehab Admission - Rehab Decision to Admit Inpatient rehab admission?: No
[2018-12-08] MEDS ORDERED: HYDROCORTISONE 1% TOPICAL OINT 30 GM TUBE TP PRN (21:20)
[2018-12-08] MEDS ORDERED: IBUPROFEN 400 MG TABLET (FP) PO PRN (21:21)
[2018-12-08] MEDS ORDERED: LOPERAMIDE HCL 2 MG CAPSULE PO PRN (21:21)
[2018-12-08] MEDS ORDERED: guaiFENesin/D-METHORPHAN HB 10 ML UNIT-DOSE CUPS PO PRN (21:21)
[2018-12-08] MEDS ORDERED: MAG HYDROX/AL HYDROX/SIMETH 30 ML UNIT-DOSE CUP PO PRN (21:21)
[2018-12-08] MEDS ORDERED: MAGNESIUM CITRATE 300 ML BOTTLE PO PRN (21:21)
[2018-12-08] MEDS ORDERED: ACETAMINOPHEN 325 MG TABLET (FP) PO PRN (21:21)
[2018-12-08] MEDS ORDERED: P-EPHED 60MG/TRIPROLIDI 2.5MG TABLET PO PRN (21:21)
[2018-12-08] MEDS ORDERED: MENTHOL/PHENOL 1 EACH UD MM PRN (21:21)
[2018-12-08] MEDS ORDERED: METHADONE HCL 10 MG TABLET (FOR DETOX USE ONLY) PO ONE ×2 (21:21→23:00)
[2018-12-08] MEDS ORDERED: MAGNESIUM HYDROX 2400MG/30ML ORAL SUSPENSION 30 ML CUP PO PRN (21:21)
[2018-12-08] MEDS ORDERED: NICOTINE POLACRILEX 2 MG GUM BC PRN (21:21)
[2018-12-08] MEDS ORDERED: MELATONIN 5 MG TABLETS PO PRN (22:00)
[2018-12-08] MEDS: THIAMINE HCL 100 MG TABLET (FP) PO SCH (22:45)
[2018-12-08] MEDS: ATORVASTATIN CA 40 MG TABLET (FP) PO SCH (22:45)
[2018-12-08] MEDS: diazePAM 5 MG TABLET PO PRN (22:45)
[2018-12-09] MEDS: CEPHALEXIN MONOHYDRATE 500 MG CAPSULE (UD) PO SCH ×4 (00:12→18:50)
[2018-12-09] MEDS: diazePAM 5 MG TABLET PO PRN ×2 (05:13→22:20)
[2018-12-09] MEDS: metFORMIN HCL 500 MG TABLET (FP) PO SCH ×2 (06:07→16:43)
--- NOTE | 2018-12-09 09:22 | CONSULT ---
[facility] Psychiatric Consult - Data Date of interview: 12/09/18 Admission source: [facility] Identifying data: Patient is a 58 year old single male, without children, unemployed, domiciled, and is supported by [facility]. This is one of multiple admissions for patient. Patient admitted to for opiate dependence. Substance Abuse History: Smoking Cessation. Smoking history: Current every day smoker. Have you smoked in the past 12 months: Yes. Aproximately how many cigarettes per day: 8. Cigars Per Day: 0. Hx Chewing Tobacco Use: No. Initiated information on smoking cessation: Yes. 'Breaking Loose' booklet given : 12/08/18. - Substance & Tx. History. Hx Alcohol Use: No. Hx Substance Use: Yes. Substance Use Type: Heroin. Hx Substance Use Treatment: Yes ([facility]). - Substances Abused. heroin. Route: Oral. Frequency: Daily. Amount used: 4 bags. Age of first use: 42. Date of Last Use: 12/08/18. Alcohol. Route: Oral. Frequency: Daily. Amount used: 4 bags. Age of first use: 42. Date of Last Use: 12/08/18 Medical History: hypertension, hypercholesterolemia, diabetes, Hep C Psychiatric History: Patient denies h/o psychiatric hospitalization and suicide attempt. He reports past outpatient psychiatric treatment at [facility], most recently four months ago. States he used to accept seroquel but discontinued medication because he did not like how it made him feel. Patient is noncompliant with medications. As per Dr. Bear note on 07/12/18, patient reported h/o multiple psychiatric hospitalizations ([facility]). At present, patient is experiencing difficulty sleeping. Physical/Sexual Abuse/Trauma History: denies. Mental Status Exam - Mental Status Exam Alert and Oriented to: Time, Place, Person Cognitive Function: Fair Patient Appearance: Unkempt Mood: Withdrawn Affect: Mood Congruent Patient Behavior: Fatigued Speech Pattern: Appropriate Voice Loudness: Moderately Soft/Quiet Thought Process: Intact, Goal Oriented Thought Disorder: Not Present Hallucinations: Denies Suicidal Ideation: Denies Homicidal Ideation: Denies Insight/Judgement: Poor Sleep: Poorly Appetite: Fair Muscle strength/Tone: Normal Gait/Station: Normal Psychiatric Findings - Problem List ([place] 1, 2,3) (1) Substance-induced sleep disorder Current Visit: Yes Status: Acute (2) Opioid dependence with withdrawal Current Visit: Yes Status: Acute (3) Nicotine dependence Current Visit: Yes Status: Chronic Qualifiers: Nicotine product type: cigarettes Substance use status: uncomplicated Qualified Code(s): F17.210 - Nicotine dependence, cigarettes, uncomplicated (4) Substance induced mood disorder Current Visit: Yes Status: Acute - Initial Treatment Plan Initial Treatment Plan: Psychoeducation provided. Detoxification in progress. Will increase Melatonin 5mg to 10mg qhs. Benefits and side effects discussed. Verbal consent given.
[2018-12-09] MEDS ORDERED: METHADONE HCL 10 MG TABLET (FOR DETOX USE ONLY) PO ONE (10:00)
[2018-12-09] MEDS: LISINOPRIL 20 MG TABLET (FP) PO SCH (10:07)
[2018-12-09] MEDS: PRENATAL VITAMINS W/ FOLIC ACID TABLET (FP) PO SCH (10:07)
[2018-12-09] MEDS: NICOTINE 14 MG/24 HOURS TOPICAL PATCH TD SCH (10:07)
[2018-12-09 10:50] LABS: ALBUMIN 3.1 g/dl (3.4-5.0); ALK PHOS 154 U/L (45-117); ANION GAP 7 MMOL/L (8-16); BILIRUBIN,TOTAL 0.6 mg/dL (0.2-1); BLOOD UREA NITROGEN 16 mg/dL (7-18); CALCIUM 8.4 mg/dL (8.5-10.1); CHLORIDE 102 mmol/L (98-107); CO2 27 mmol/L (21-32); CREATININE 0.7 mg/dL (0.55-1.3); GLUCOSE,RANDOM 180 mg/dL (74-106); POTASSIUM 4.3 mmol/L (3.5-5.1); SGOT/AST 22 U/L (15-37); SGPT/ALT 26 U/L (13-61); SODIUM 136 mmol/L (136-145); TOT PROT 6.9 g/dl (6.4-8.2)
[2018-12-09 11:04] LABS: HEMATOCRIT 37.3 % (35.4-49); HEMOGLOBIN 12.3 GM/dL (11.7-16.9); MCH 28.1 pg (25.7-33.7); MCHC 33.1 g/dl (32.0-35.9); MEAN PLT VOLUME 7.6 fl (7.5-11.1); PLATELET COUNT 188 K/MM3 (134-434); RBC 4.39 M/mm3 (4.00-5.60); RDW 14.6 % (11.9-15.9); WHITE BLOOD COUNT 4.8 K/mm3 (4.0-10.0)
--- NOTE | 2018-12-09 14:41 | PN ---
[facility] COWS - Scale Resting Pulse: 0= [place] 80 or Below Sweatin= Chills/Flushing Restless Observation: 1= Difficult to Sit Still Pupil Size: 1= Pupils >than Normal Bone or Joint Aches: 1= Mild Discomfort Runny Nose/ Eye Tearin= Nasal Congestion GI Upset > 30mins: 1= Stomach Cramp Tremor Observation of Outstretched Hands: 1= Tremor [place]cd[place], Not Seen Yawning Observation: 1= 1-2x During Session Anxiety or Irritability: 1=Feels Anxious/Irritable Goose Flesh Skin: 0=Smooth Skin COWS Score: 9 B[facility] Progress Note (SOAP) Subjective: body aches joints pain tremor mild sweating Objective: 12/09/18 14:42 Vital Signs Temperature 98 F 12/09/18 14:04 Pulse Rate 72 12/09/18 14:04 Respiratory Rate 18 12/09/18 14:04 Blood Pressure 116/69 12/09/18 14:04 O2 Sat by Pulse Oximetry (%) Laboratory Last Values WBC 4.8 K/mm3 (4.0-10.0) 12/09/18 07:00 RBC 4.39 M/mm3 (4.00-5.60) 12/09/18 07:00 Hgb 12.3 GM/dL (11.7-16.9) 12/09/18 07:00 Hct 37.3 % (35.4-49) 12/09/18 07:00 MCV 85.0 fl (80-96) 12/09/18 07:00 MCH 28.1 pg (25.7-33.7) 12/09/18 07:00 MCHC 33.1 g/dl (32.0-35.9) 12/09/18 07:00 RDW 14.6 % (11.9-15.9) 12/09/18 07:00 Plt Count 188 K/MM3 (134-434) D 12/09/18 07:00 MPV 7.6 fl (7.5-11.1) 12/09/18 07:00 Sodium 136 mmol/L (136-145) 12/09/18 07:00 Potassium 4.3 mmol/L (3.5-5.1) 12/09/18 07:00 Chloride 102 mmol/L (98-107) 12/09/18 07:00 Carbon Dioxide 27 mmol/L (21-32) 12/09/18 07:00 Anion Gap 7 MMOL/L (8-16) L 12/09/18 07:00 BUN 16 mg/dL (7-18) 12/09/18 07:00 Creatinine 0.7 mg/dL (0.55-1.3) 12/09/18 07:00 Creat Clearance w eGFR > 60 (>60) 12/09/18 07:00 POC Glucometer 232 UNITS (80-120) 12/09/18 05:11 Random Glucose 180 mg/dL (74-106) H 12/09/18 07:00 Calcium 8.4 mg/dL (8.5-10.1) L 12/09/18 07:00 Total Bilirubin 0.6 mg/dL (0.2-1) 12/09/18 07:00 AST 22 U/L (15-37) 12/09/18 07:00 ALT 26 U/L (13-61) 12/09/18 07:00 Alkaline Phosphatase 154 U/L (45-117) H 12/09/18 07:00 Total Protein 6.9 g/dl (6.4-8.2) 12/09/18 07:00 Albumin 3.1 g/dl (3.4-5.0) L 12/09/18 07:00 RPR Titer Nonreactive (NONREACTIVE) 12/09/18 07:00 HIV 1&2 Antibody Screen Negative 12/09/18 07:00 HIV P24 Antigen Negative 12/09/18 07:00 lab noted Assessment: 12/09/18 14:42 withdrawal sx Plan: continue detox
[2018-12-09 22:07] LABS: URINE APPEARANCE TURBID; URINE BILIRUBIN NEGATIVE (<2.0 mg/dL); URINE COLOR YELLOW; URINE GLUCOSE (UA) NEGATIVE (NEGATIVE); URINE KETONE NEGATIVE (NEGATIVE); URINE LEUK ESTERASE NEGATIVE (NEGATIVE); URINE NITRITE NEGATIVE (NEGATIVE); URINE PROTEIN NEGATIVE (NEGATIVE)
[2018-12-09] MEDS: ATORVASTATIN CA 40 MG TABLET (FP) PO SCH (22:20)
[2018-12-09] MEDS: THIAMINE HCL 100 MG TABLET (FP) PO SCH (22:20)
[2018-12-09] MEDS: MELATONIN 5 MG TABLETS PO PRN (22:20)
[2018-12-10] MEDS: CEPHALEXIN MONOHYDRATE 500 MG CAPSULE (UD) PO SCH ×4 (00:39→17:57)
[2018-12-10] MEDS: diazePAM 5 MG TABLET PO PRN ×3 (05:19→17:56)
[2018-12-10] MEDS: metFORMIN HCL 500 MG TABLET (FP) PO SCH ×2 (07:25→17:56)
[2018-12-10] MEDS ORDERED: METHADONE HCL 5 MG TABLET (FOR DETOX USE ONLY) PO ONE (10:00)
[2018-12-10] MEDS: PRENATAL VITAMINS W/ FOLIC ACID TABLET (FP) PO SCH (10:36)
[2018-12-10] MEDS: LISINOPRIL 20 MG TABLET (FP) PO SCH (10:37)
[2018-12-10] MEDS: NICOTINE 14 MG/24 HOURS TOPICAL PATCH TD SCH (10:38)
--- NOTE | 2018-12-10 11:47 | PN ---
BHS COWS - Scale Resting Pulse: 0= IN 80 or Below Sweatin= Chills/Flushing Restless Observation: 0= Sits Still Pupil Size: 0= Normal to Room Light Bone or Joint Aches: 1= Mild Discomfort Runny Nose/ Eye Tearin= Nasal Congestion GI Upset > 30mins: 1= Stomach Cramp Tremor Observation of Outstretched Hands: 1= Tremor [place], Not Seen Yawning Observation: 1= 1-2x During Session Anxiety or Irritability: 1=Feels Anxious/Irritable Goose Flesh Skin: 0=Smooth Skin COWS Score: 7 BHS Progress Note (SOAP) Subjective: body aches back pain both eyes redness right eye white discharge trouble open eye lid Objective: 12/10/18 11:48 Vital Signs Temperature 97.1 F L 12/10/18 09:40 Pulse Rate 68 12/10/18 09:40 Respiratory Rate 18 12/10/18 09:40 Blood Pressure 127/78 12/10/18 09:40 O2 Sat by Pulse Oximetry (%) Laboratory Last Values WBC 4.8 K/mm3 (4.0-10.0) 12/09/18 07:00 RBC 4.39 M/mm3 (4.00-5.60) 12/09/18 07:00 Hgb 12.3 GM/dL (11.7-16.9) 12/09/18 07:00 Hct 37.3 % (35.4-49) 12/09/18 07:00 MCV 85.0 fl (80-96) 12/09/18 07:00 MCH 28.1 pg (25.7-33.7) 12/09/18 07:00 MCHC 33.1 g/dl (32.0-35.9) 12/09/18 07:00 RDW 14.6 % (11.9-15.9) 12/09/18 07:00 Plt Count 188 K/MM3 (134-434) D 12/09/18 07:00 MPV 7.6 fl (7.5-11.1) 12/09/18 07:00 Sodium 136 mmol/L (136-145) 12/09/18 07:00 Potassium 4.3 mmol/L (3.5-5.1) 12/09/18 07:00 Chloride 102 mmol/L (98-107) 12/09/18 07:00 Carbon Dioxide 27 mmol/L (21-32) 12/09/18 07:00 Anion Gap 7 MMOL/L (8-16) L 12/09/18 07:00 BUN 16 mg/dL (7-18) 12/09/18 07:00 Creatinine 0.7 mg/dL (0.55-1.3) 12/09/18 07:00 Creat Clearance w eGFR > 60 (>60) 12/09/18 07:00 POC Glucometer 148 UNITS (80-120) 12/10/18 05:21 Random Glucose 180 mg/dL (74-106) H 12/09/18 07:00 Calcium 8.4 mg/dL (8.5-10.1) L 12/09/18 07:00 Total Bilirubin 0.6 mg/dL (0.2-1) 12/09/18 07:00 AST 22 U/L (15-37) 12/09/18 07:00 ALT 26 U/L (13-61) 12/09/18 07:00 Alkaline Phosphatase 154 U/L (45-117) H 12/09/18 07:00 Total Protein 6.9 g/dl (6.4-8.2) 12/09/18 07:00 Albumin 3.1 g/dl (3.4-5.0) L 12/09/18 07:00 Urine Color Yellow 12/08/18 23:20 Urine Appearance Turbid 12/08/18 23:20 Urine pH 5.0 (5.0-8.0) 12/08/18 23:20 Ur Specific [place] 1.028 (1.010-1.035) 12/08/18 23:20 Urine Protein Negative (NEGATIVE) 12/08/18 23:20 Urine Glucose (UA) Negative (NEGATIVE) 12/08/18 23:20 Urine Ketones Negative (NEGATIVE) 12/08/18 23:20 Urine Blood Negative (NEGATIVE) 12/08/18 23:20 Urine Nitrite Negative (NEGATIVE) 12/08/18 23:20 Urine Bilirubin Negative (<2.0 mg/dL) 12/08/18 23:20 Urine Urobilinogen 2.0 mg/dL (0.2-1.0) 12/08/18 23:20 Ur Leukocyte Esterase Negative (NEGATIVE) 12/08/18 23:20 RPR Titer Nonreactive (NONREACTIVE) 12/09/18 07:00 HIV 1&2 Antibody Screen Negative 12/09/18 07:00 HIV P24 Antigen Negative 12/09/18 07:00 lab noted Assessment: 12/10/18 11:48 opiate withdrawal sx bacterial conjunctivitis Plan: continue detox
[2018-12-10] MEDS: ERYTHROMYCIN 0.5% OPHTHALMIC OINTMENT 3.5 GM TUBE OU SCH (13:38)
[2018-12-10] MEDS: ATORVASTATIN CA 40 MG TABLET (FP) PO SCH (21:57)
[2018-12-10] MEDS: MELATONIN 5 MG TABLETS PO PRN (21:57)
[2018-12-10] MEDS: THIAMINE HCL 100 MG TABLET (FP) PO SCH (22:30)
[2018-12-11] MEDS: CEPHALEXIN MONOHYDRATE 500 MG CAPSULE (UD) PO SCH ×5 (05:17→23:04)
[2018-12-11] MEDS: diazePAM 5 MG TABLET PO PRN ×3 (05:17→17:21)
[2018-12-11] MEDS: metFORMIN HCL 500 MG TABLET (FP) PO SCH ×2 (06:18→17:18)
[2018-12-11] MEDS ORDERED: METHADONE HCL 5 MG TABLET (FOR DETOX USE ONLY) PO ONE (10:00)
[2018-12-11] MEDS: PRENATAL VITAMINS W/ FOLIC ACID TABLET (FP) PO SCH (10:23)
[2018-12-11] MEDS: ERYTHROMYCIN 0.5% OPHTHALMIC OINTMENT 3.5 GM TUBE OU SCH (10:24)
[2018-12-11] MEDS: NICOTINE 14 MG/24 HOURS TOPICAL PATCH TD SCH (10:27)
[2018-12-11] MEDS: LISINOPRIL 20 MG TABLET (FP) PO SCH (10:27)
[2018-12-11] MEDS ORDERED: METHADONE HCL 10 MG TABLET (FOR DETOX USE ONLY) PO ONE (10:31)
--- NOTE | 2018-12-11 16:24 | PN ---
BHS COWS - Scale Resting Pulse: 0= IN 80 or Below Sweatin= No chills or Flushing Restless Observation: 0= Sits Still Pupil Size: 0= Normal to Room Light Bone or Joint Aches: 1= Mild Discomfort Runny Nose/ Eye Tearin= None GI Upset > 30mins: 0= None Tremor Observation of Outstretched Hands: 1= Tremor [place], Not Seen Yawning Observation: 1= 1-2x During Session Anxiety or Irritability: 1=Feels Anxious/Irritable Goose Flesh Skin: 0=Smooth Skin COWS Score: 4 BHS Progress Note (SOAP) Subjective: feeling better less body ache mild tremor little sweating sleep better at night talking about aftercare preferred begin opiate rehab tomorrow Objective: 12/11/18 16:23 Vital Signs Temperature 97.6 F 12/11/18 13:25 Pulse Rate 63 12/11/18 13:25 Respiratory Rate 18 12/11/18 13:25 Blood Pressure 142/76 12/11/18 13:25 O2 Sat by Pulse Oximetry (%) Laboratory Last Values WBC 4.8 K/mm3 (4.0-10.0) 12/09/18 07:00 RBC 4.39 M/mm3 (4.00-5.60) 12/09/18 07:00 Hgb 12.3 GM/dL (11.7-16.9) 12/09/18 07:00 Hct 37.3 % (35.4-49) 12/09/18 07:00 MCV 85.0 fl (80-96) 12/09/18 07:00 MCH 28.1 pg (25.7-33.7) 12/09/18 07:00 MCHC 33.1 g/dl (32.0-35.9) 12/09/18 07:00 RDW 14.6 % (11.9-15.9) 12/09/18 07:00 Plt Count 188 K/MM3 (134-434) D 12/09/18 07:00 MPV 7.6 fl (7.5-11.1) 12/09/18 07:00 Sodium 136 mmol/L (136-145) 12/09/18 07:00 Potassium 4.3 mmol/L (3.5-5.1) 12/09/18 07:00 Chloride 102 mmol/L (98-107) 12/09/18 07:00 Carbon Dioxide 27 mmol/L (21-32) 12/09/18 07:00 Anion Gap 7 MMOL/L (8-16) L 12/09/18 07:00 BUN 16 mg/dL (7-18) 12/09/18 07:00 Creatinine 0.7 mg/dL (0.55-1.3) 12/09/18 07:00 Creat Clearance w eGFR > 60 (>60) 12/09/18 07:00 POC Glucometer 189 UNITS (80-120) 12/11/18 05:16 Random Glucose 180 mg/dL (74-106) H 12/09/18 07:00 Calcium 8.4 mg/dL (8.5-10.1) L 12/09/18 07:00 Total Bilirubin 0.6 mg/dL (0.2-1) 12/09/18 07:00 AST 22 U/L (15-37) 12/09/18 07:00 ALT 26 U/L (13-61) 12/09/18 07:00 Alkaline Phosphatase 154 U/L (45-117) H 12/09/18 07:00 Total Protein 6.9 g/dl (6.4-8.2) 12/09/18 07:00 Albumin 3.1 g/dl (3.4-5.0) L 12/09/18 07:00 Urine Color Yellow 12/08/18 23:20 Urine Appearance Turbid 12/08/18 23:20 Urine pH 5.0 (5.0-8.0) 12/08/18 23:20 Ur Specific [place] 1.028 (1.010-1.035) 12/08/18 23:20 Urine Protein Negative (NEGATIVE) 12/08/18 23:20 Urine Glucose (UA) Negative (NEGATIVE) 12/08/18 23:20 Urine Ketones Negative (NEGATIVE) 12/08/18 23:20 Urine Blood Negative (NEGATIVE) 12/08/18 23:20 Urine Nitrite Negative (NEGATIVE) 12/08/18 23:20 Urine Bilirubin Negative (<2.0 mg/dL) 12/08/18 23:20 Urine Urobilinogen 2.0 mg/dL (0.2-1.0) 12/08/18 23:20 Ur Leukocyte Esterase Negative (NEGATIVE) 12/08/18 23:20 RPR Titer Nonreactive (NONREACTIVE) 12/09/18 07:00 HIV 1&2 Antibody Screen Negative 12/09/18 07:00 HIV P24 Antigen Negative 12/09/18 07:00 lab noted Assessment: 12/11/18 16:24 mild withdrawal sx 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
[2018-12-11] MEDS: MELATONIN 5 MG TABLETS PO PRN (22:25)
[2018-12-11] MEDS: ATORVASTATIN CA 40 MG TABLET (FP) PO SCH (22:25)
[2018-12-11] MEDS: THIAMINE HCL 100 MG TABLET (FP) PO SCH (22:25)
[2018-12-12] MEDS: CEPHALEXIN MONOHYDRATE 500 MG CAPSULE (UD) PO SCH (05:52)
[2018-12-12] MEDS ORDERED: METHADONE HCL 5 MG TABLET (FOR DETOX USE ONLY) PO ONE (06:00)
[2018-12-12 06:38] VITALS: BP 128/70; PULSE 58; TEMP 97
[2018-12-12] MEDS: metFORMIN HCL 500 MG TABLET (FP) PO SCH (06:38)
[2018-12-12] MEDS ORDERED: METHADONE HCL 10 MG TABLET (FOR DETOX USE ONLY) PO ONE (10:00)
[2018-12-13] MEDS ORDERED: METHADONE HCL 5 MG TABLET (FOR DETOX USE ONLY) PO ONE (06:00)
--- NOTE | 2018-12-14 22:09 | DS ---
[facility] Detox Discharge Summary Admission Date: 12/08/18 Discharge Date: 12/12/18 - History Present History: Opioid Dependence Additional Comments: PATIENT GOING [facility] ([place], [place]) FOR AFTERCARE. PRESCRIPTIONS FOR DISCHARGE MEDICATIONS, INCLUDING KELFLEX FOR CELLULITIS OF RIGHT FOREARM, SENT TO PATIENT'S PHARMACY ([facility], [place], [place]) FOR FOLLOW-UP AFTERCARE). PATIENT WAS DISCHARGED FROM DETOX UNIT IN STABLE MEDICAL CONDITION. Pertinent Past History: Type II DM, HTN, Hyperlipidemia, History of Depression, Hep C, Conjunctivitis of Bilateral Eyes, Insomnia, Dry Eyes, Nicotine Dependence. - Physical Exam Results Vital Signs: Vital Signs Temperature 97 F L 12/12/18 06:38 Pulse Rate 58 L 12/12/18 06:38 Respiratory Rate 18 12/12/18 06:38 Blood Pressure 128/70 12/12/18 06:38 O2 Sat by Pulse Oximetry (%) Pertinent Admission Physical Exam Findings: WITHDRAWAL SYMPTOMS. Laboratory Tests 12/08/18 12/08/18 12/09/18 19:02 23:20 05:11 WBC RBC Hgb Hct MCV MCH MCHC RDW Plt Count MPV Sodium Potassium Chloride Carbon Dioxide Anion Gap BUN Creatinine Creat Clearance w eGFR POC Glucometer 168 232 Random Glucose Calcium Total Bilirubin AST ALT Alkaline Phosphatase Total Protein Albumin Urine Color Yellow Urine Appearance Turbid Urine pH 5.0 Ur Specific [place] 1.028 Urine Protein Negative Urine Glucose (UA) Negative Urine Ketones Negative Urine Blood Negative Urine Nitrite Negative Urine Bilirubin Negative Urine Urobilinogen 2.0 Ur Leukocyte Esterase Negative RPR Titer HIV 1&2 Antibody Screen HIV P24 Antigen 12/09/18 12/09/18 12/09/18 07:00 07:00 07:00 WBC 4.8 RBC 4.39 Hgb 12.3 Hct 37.3 MCV 85.0 MCH 28.1 MCHC 33.1 RDW 14.6 Plt Count 188 D MPV 7.6 Sodium 136 Potassium 4.3 Chloride 102 Carbon Dioxide 27 Anion Gap 7 L BUN 16 Creatinine 0.7 Creat Clearance w eGFR > 60 POC Glucometer Random Glucose 180 H Calcium 8.4 L Total Bilirubin 0.6 AST 22 ALT 26 Alkaline Phosphatase 154 H Total Protein 6.9 Albumin 3.1 L Urine Color Urine Appearance Urine pH Ur Specific [place] Urine Protein Urine Glucose (UA) Urine Ketones Urine Blood Urine Nitrite Urine Bilirubin Urine Urobilinogen Ur Leukocyte Esterase RPR Titer HIV 1&2 Antibody Screen Negative HIV P24 Antigen Negative 12/09/18 12/09/18 12/10/18 07:00 16:33 05:21 WBC RBC Hgb Hct MCV MCH MCHC RDW Plt Count MPV Sodium Potassium Chloride Carbon Dioxide Anion Gap BUN Creatinine Creat Clearance w eGFR POC Glucometer 205 148 Random Glucose Calcium Total Bilirubin AST ALT Alkaline Phosphatase Total Protein Albumin Urine Color Urine Appearance Urine pH Ur Specific [place] Urine Protein Urine Glucose (UA) Urine Ketones Urine Blood Urine Nitrite Urine Bilirubin Urine Urobilinogen Ur Leukocyte Esterase RPR Titer Nonreactive HIV 1&2 Antibody Screen HIV P24 Antigen 12/10/18 12/11/18 12/11/18 17:14 05:16 16:25 WBC RBC Hgb Hct MCV MCH MCHC RDW Plt Count MPV Sodium Potassium Chloride Carbon Dioxide Anion Gap BUN Creatinine Creat Clearance w eGFR POC Glucometer 288 189 276 Random Glucose Calcium Total Bilirubin AST ALT Alkaline Phosphatase Total Protein Albumin Urine Color Urine Appearance Urine pH Ur Specific [place] Urine Protein Urine Glucose (UA) Urine Ketones Urine Blood Urine Nitrite Urine Bilirubin Urine Urobilinogen Ur Leukocyte Esterase RPR Titer HIV 1&2 Antibody Screen HIV P24 Antigen 12/12/18 05:51 WBC RBC Hgb Hct MCV MCH MCHC RDW Plt Count MPV Sodium Potassium Chloride Carbon Dioxide Anion Gap BUN Creatinine Creat Clearance w eGFR POC Glucometer 376 Random Glucose Calcium Total Bilirubin AST ALT Alkaline Phosphatase Total Protein Albumin Urine Color Urine Appearance Urine pH Ur Specific [place] Urine Protein Urine Glucose (UA) Urine Ketones Urine Blood Urine Nitrite Urine Bilirubin Urine Urobilinogen Ur Leukocyte Esterase RPR Titer HIV 1&2 Antibody Screen HIV P24 Antigen LABS NOTED. - Treatment Hospital Course: Detox Protocol Followed, Detoxed Safely, Responded well, Discharged Condition Good Patient has Accepted a Rehab Referral to: PT. [facility]ING TO [facility] ([place], [place]). - Medication Discharge Medications: Ambulatory Orders Ciprofloxacin 0.3% Eye Drops [Ciloxan 0.3% Eye Drops --] 1 drop OU BID 12/25/17 Quetiapine Fumarate [Seroquel -] 200 mg PO HS #30 tab 12/25/17 Zolpidem Tartrate [Ambien] 10 mg PO HS 07/11/18 Atorvastatin Ca [Lipitor] 40 mg PO HS #14 tablet 12/11/18 Lisinopril 1 tab PO DAILY #14 tablet 12/11/18 Naloxone HCl [Narcan] 4 mg NS ASDIR PRN #1 spray 12/11/18 metFORMIN HCL [Glucophage -] 500 mg PO BID #30 tablet 12/11/18 Cephalexin [Keflex] 500 mg PO Q6H 5 Days #20 capsule 12/12/18 - Diagnosis (1) Abscess of right forearm Status: Acute (2) Opioid dependence with withdrawal Status: Acute (3) Substance induced mood disorder Status: Acute (4) Substance-induced sleep disorder Status: Acute (5) Conjunctivitis, both eyes Status: Chronic Qualifiers: Conjunctivitis type: acute Acute conjunctivitis type: bacterial Qualified Code(s): H10.33 - Unspecified acute conjunctivitis, bilateral (6) Dry eye Status: Chronic (7) HLD (hyperlipidemia) Status: Chronic Qualifiers: Hyperlipidemia type: pure hypercholesterolemia Qualified Code(s): E78.00 - Pure hypercholesterolemia, unspecified; E78.0 - Pure hypercholesterolemia (8) Hepatitis C Status: Chronic Qualifiers: Viral hepatitis chronicity: chronic Hepatic coma status: without hepatic coma Qualified Code(s): B18.2 - Chronic viral hepatitis C (9) Hypertension Status: Chronic Qualifiers: Hypertension type: essential hypertension Qualified Code(s): I10 - Essential (primary) hypertension (10) Insomnia Status: Chronic Qualifiers: Insomnia type: drug-induced Qualified Code(s): F19.982 - Other psychoactive substance use, unspecified with psychoactive substance-induced sleep disorder (11) Nicotine dependence Status: Chronic Qualifiers: Nicotine product type: cigarettes Substance use status: uncomplicated Qualified Code(s): F17.210 - Nicotine dependence, cigarettes, uncomplicated (12) Type 2 diabetes mellitus Status: Chronic Qualifiers: Diabetes mellitus [facility] use: with [facility] use Diabetes mellitus complication status: without complication Qualified Code(s): E11.9 - Type 2 diabetes mellitus without complications; Z79.4 - intermediate manager (current) use of insulin - AMA Did Patient Leave Against Medical Advice: No
== END 2018-12-12 08:53 | disposition home or self-care (01) | DRG 897 ==
LOC: YASAS 15:17 → Y3N 21:44
PROVIDERS: ADMIT Surgery; ATTEND Surgery
PROC: HZ2ZZZZ Detoxification Services for Substance Abuse Treatment (ICD-10-PCS; principal; 2018-12-08)
DX: F11.23 Opioid dependence with withdrawal (principal); F19.282 Other psychoactive substance dependence with psychoactive substance-induced sleep disorder; L02.511 Cutaneous abscess of right hand; L02.413 Cutaneous abscess of right upper limb; F17.210 Nicotine dependence, cigarettes, uncomplicated; F19.24 Other psychoactive substance dependence with psychoactive substance-induced mood disorder; I10 Essential (primary) hypertension; E78.5 Hyperlipidemia, unspecified; E11.9 Type 2 diabetes mellitus without complications; H10.33 Unspecified acute conjunctivitis, bilateral; B96.89 Other specified bacterial agents as the cause of diseases classified elsewhere; Z79.84 Long term (current) use of oral hypoglycemic drugs
CPT/HCPCS: 36415; 80053; 81003; 82962; 85027; 86593; 87389